=== PATIENT | female | born 1990 | race Two or more races ===

== ENCOUNTER 2023-10-05 16:06 | Emergency (ER) | payer OTHER, SELFPAY ==
[2023-10-05 16:16] VITALS: BP 130/80; PULSE 67; TEMP 36.9; O2SAT 98
--- NOTE | 2023-10-05 22:08 | ED_ITS ---
HPI HPI - General Adult General Chief complaint: Upper Respiratory Infection Stated complaint: URTI Time Seen by Provider: 10/05/23 16:11 Source: patient Mode of arrival: walk-in Limitations: no limitations History of Present Illness HPI narrative: Patient is a 33-year-old female who is presenting to the ER with chief complaint of sinus congestion for the past 3 days.Patient has no headache, patient has cough and is most concerned about costochondritis to the parasternal area.No sore throat. Minimal sinus pressure.Patient is having dry cough and a clear yellowish cough for the past few days. Patient daughter is at bedside. No chest pain, shortness of breath, abdominal pain, nausea or vomiting.Patient states she is having pain along the parasternal border after coughing only, it is concerned. No rash.No chest heaviness or tightness. No cardiac history.Patient is taking Mucinex D a few times [id number] with no relief All systems are negative except as noted/marked. All systems reviewed and otherwise negative. Nurses note and vital signs reviewed and patient is not hypoxic. General: The patient appears well and in no apparent distress. Patient is resting comfortably on cart. Patient is not toxic, lethargic, or listless Skin: Warm, dry, no pallor noted. There is no rash noted. No petechiae, purpura. Head: Normocephalic, atraumatic; Patient has no tenderness to palpation to bilateral frontal or maxillary sinus. Eye: Normal conjunctiva, no drainage, EOMI. PERRL Ears, Nose, Mouth, and Throat: oral mucosa is moist. Clear drainage noted to the posterior pharynx.Mild cobblestoning. No unilateral swelling. No posterior pharyngeal erythema, petechiae or exudate. Nares patent. Mouth without vesicles. Cardiovascular: Regular Rate and Rhythm, no murmur, gallop, rub; Reproducible mild tenderness to palpation to the parasternal border of the anterior chest wall.No other anterior, lateral, posterior chest wall pain.No crepitus. Respiratory: Patient is in no distress, no accessory muscle use, lungs are clear to auscultation, no wheezing, rales or rhonchi Back: non-tender, GI: no tenderness Musculoskeletal: Patient has full range of motion of all of the extremities, no motor, sensory, or focal neurological deficits Neurological: A&O x4, normal speech Psychiatric: Cooperative Related Data Home Medications ?Medication ?Instructions ?Recorded ?Confirmed cetirizine 10 mg capsule (All Day 10 mg PO DAILY 10/05/23 10/05/23 Allergy (cetirizine)) clonazepam 1 mg tablet 1 mg PO DAILY 10/05/23 10/05/23 sertraline 50 mg tablet (Zoloft) 50 mg PO DAILY 10/05/23 10/05/23 tiotropium bromide 2.5 2 inh inhalation DAILY 10/05/23 10/05/23 mcg/actuation mist for inhalation (Spiriva Respimat) Allergies Allergy/AdvReac Type Severity Reaction Status Date / Time bupropion [From Wellbutrin] Allergy Severe suicidal Verified 10/05/23 16:11 Opioid HPI Opioid Management Most Recent Opioid Data: No Data to Display Exam Constitutional Vital Signs, click to edit/add: Last Vital Signs Temp 98.5 F 10/05/23 16:16 Pulse 67 10/05/23 16:16 Resp 17 10/05/23 16:16 BP 130/80 10/05/23 16:16 Pulse Ox 98 10/05/23 16:16 O2 Del Method Room Air 10/05/23 16:16 Course Vital Signs Vital signs: Vital Signs Temperature 98.5 F 10/05/23 16:16 Pulse Rate 67 10/05/23 16:16 Respiratory Rate 17 10/05/23 16:16 Blood Pressure 130/80 10/05/23 16:16 Pulse Oximetry 98 10/05/23 16:16 Oxygen Delivery Method Room Air 10/05/23 16:16 Temperature 98.5 F 10/05/23 16:16 Pulse Rate 67 10/05/23 16:16 Respiratory Rate 17 10/05/23 16:16 Blood Pressure 130/80 10/05/23 16:16 Pulse Oximetry 98 10/05/23 16:16 Oxygen Delivery Method Room Air 10/05/23 16:16 Medical Decision Making MDM Narrative Medical decision making narrative: Patient has evidence of sinus congestion. No acute indication for steroids or antibiotics. Education was done at bedside. Patient is able to do multiple [id number] Therapies which she is not doing, she is only done Mucinex D x 1.Education on costochondritis was done at bedside and on discharge paperwork.Patient stated that 2 of her children were placed on steroids and they had symptoms like this in the past week or 2.Patient lungs are crystal clear, she has no acute indication for steroids at this time.Patient understands, no questions at discharge. Discharge Plan Discharge Stand Alone Forms: Portal Instructions Chief Complaint: Upper Respiratory Infection Clinical Impression: Upper respiratory infection, Bronchitis, Costochondritis Patient Disposition: Home, Self-Care Time of Disposition Decision: 17:50 Condition: Fair Prescriptions / Home Meds: No Action All Day Allergy (cetirizine) 10 mg capsule 10 mg PO DAILY clonazepam 1 mg tablet 1 mg PO DAILY Spiriva Respimat 2.5 mcg/actuation mist 2 inh inhalation DAILY sertraline [Zoloft] 50 mg tablet 50 mg PO DAILY Print Language: Frisian Instructions: Costochondritis (ED), Upper Respiratory Infection (ED), Acute Bronchitis (ED) Additional Instructions: Increase fluids at home, Gatorade, Powerade, or water. Alternate using DayQuil, NyQuil, and Flonase. Add Mucinex as well as needed. Alternate Tylenol and Motrin every 4 hours to help with fever control, body aches or joint pain. Use [id number] vitamin C, vitamin D3, and zinc to help fight infection and help with her immune system. Referrals: Ramon Ruiz DO [Primary Care Provider] - 1 week Discharge Date/Time: 10/05/23 17:57
== END 2023-10-05 17:57 | disposition home or self-care (01) ==
PROVIDERS: Emergency Provider Emergency Medicine; PCP Family Medicine
DX: J06.9 Acute upper respiratory infection, unspecified (principal); J40 Bronchitis, not specified as acute or chronic; M94.0 Chondrocostal junction syndrome [Tietze]
CPT/HCPCS: 99281

== ENCOUNTER 2025-02-26 18:28 | Emergency (ER) | payer OTHER, SELFPAY ==
--- OUTSIDE RECORDS SUMMARY | 2024-05-05 04:18 | XMS_ITS | Continuity of Care Document ---
Author Organization [facility] Address [address] [place] [id number] Phone Care Team Providers Care Marine Technician Name Role Phone Sean FLOWERS Scout Unavailable Unavailable Allergies, Adverse Reactions, Alerts Substance Reaction Status Criticality No Known Allergies Active No Inform ation Medications Medication Instructions Dosage Effective Dates (start - stop) Status Comments Spiriva Respimat 1.25 mcg/actuation solution for inhalation inhale 2 puff by inhalation route every day 2.5 MCG - Active Zoloft 50 mg tablet take 1 tablet by ora l route every day 50 MG - Active Zyrtec 10 mg tablet take 1 tablet by ora l route every day 10 MG - Active Asmanex HFA 50 mcg/actuation aerosol inhaler - Active Klonopin 1 mg tablet take 1 tablet by or al route every day 1 MG - Active Procedures Procedure Date Prophylaxis Adult [facility] [place] Dis Apr Oral Hygiene Instruction OFFICE/OUTPATIENT VISIT, EST ROUTINE VENIPUNCTURE Prophylaxis Adult Moderate Risk [facility] [place] Dis Sep Oral Hygiene Instruction Intraoral-complete Series (bw) [facility] [place] Dis Sep Oral Hygiene Instruction Comp Oral Eval New/estab Patient 2023 Intraoral-periapical 1st Film Bitewig-single Film Feb-01-2024 Limited Oral Eval Oral Hygiene Instruction IMMUNIZATION ADMIN FLU VAC NO PRSV 4 ENOCH 3 YRS+ IMMUNIZATION ADMIN FLU VAC NO PRSV 4 ENOCH 3 YRS+ Prophylaxis Adult [facility] [place] Dis Feb Oral Hygiene Instruction IMMUNIZATION ADMIN FLU VAC NO PRSV 4 ENOCH 3 YRS+ [facility] [place] Dis Oct Oral Hygiene Instruction Resin Composite 2s; Posterior 9 Resin Composite 1s; Posterior 9 Treatment Completed Oral Hygiene Instruction Resin Composite 3s; Posterior 9 Resin Composite 2s; Posterior 9 Prophylaxis Adult Oral Hygiene Instruction Intraoral-complete Series (bw) 19 Comp Oral Eval New/estab Patient 2018 Oral Hygiene Instruction OFFICE/OUTPATIENT VISIT, EST DESTRUCT B9 LESION, - OFFICE/OUTPATIENT VISIT, EST OFFICE/OUTPATIENT VISIT, EST OFFICE/OUTPATIENT VISIT, EST HIV-1 ROUTINE VENIPUNCTURE OFFICE/OUTPATIENT VISIT, EST OFFICE/OUTPATIENT VISIT, EST SMEAR, WET MOUNT, SALINE/INK OFFICE/OUTPATIENT VISIT, EST OFFICE/OUTPATIENT VISIT, EST URINE TEST DESTRUCT B9 LESION, - Donation OFFICE/OUTPATIENT VISIT, EST [facility] SPECIMEN HANDLING (GC/CHLAMYDIA) Feb DESTRUCT B9 LESION, - OFFICE/OUTPATIENT VISIT, EST OFFICE/OUTPATIENT VISIT, EST OFFICE/OUTPATIENT VISIT, NEW DESTRUCT B9 LESION, - OFFICE/OUTPATIENT VISIT, EST DESTRUCT B9 LESION, - OFFICE/OUTPATIENT VISIT, EST REMOVE INTRAUTERINE DEVICE [facility] SPECIMEN HANDLING (GC/CHLAMYDIA) Jan PREV VISIT, EST, AGE 18-39 [facility] SPECIMEN HANDLING (GC/CHLAMYDIA) August OFFICE/OUTPATIENT VISIT, EST DESTRUCT B9 LESION, 05-13 HIV-1 OFFICE/OUTPATIENT VISIT, EST SMEAR, WET MOUNT, SALINE/INK No Charge BIOPSY OF CERVIX W/SCOPE No Charge OFFICE/OUTPATIENT VISIT, EST DESTRUCT B9 LESION, 05-13 SMEAR, WET MOUNT, SALINE/INK URINE TEST OFFICE/OUTPATIENT VISIT, EST PREV VISIT, EST, AGE 18-39 SPECIMEN HANDLING THIN PREP AND HPV OFFICE/OUTPATIENT VISIT, EST Levonorgestrel iu contracept INSERT INTRAUTERINE DEVICE URINE TEST CARE AFTER DELIVERY SPECIMEN HANDLING URINE TEST OFFICE/OUTPATIENT VISIT, EST ROUTINE VENIPUNCTURE SPECIMEN HANDLING RISK ASSISSMENT CARE COORDINATION OFFICE/OUTPATIENT VISIT, EST ROUTINE VENIPUNCTURE CARE COORDINATION BX/CURETT OF CERVIX W/SCOPE OFFICE/OUTPATIENT VISIT, EST CARE COORDINATION OFFICE/OUTPATIENT VISIT, EST CARE COORDINATION FLU VACCINE, 3 YRS & >, IM H1N1 OFFICE/OUTPATIENT VISIT, EST THIN PREP W/REFLEX ASCUS PLUS 9 SPECIMEN HANDLING CARE COORDINATION DESTRUCT PREMALG LES, 2-14 OFFICE/OUTPATIENT VISIT, NEW RISK ASSISSMENT COUNSELING AND EDUCATION CARE COORDINATION ROUTINE VENIPUNCTURE Panel W/O Hemoglobinopathy DRUG SCREEN URINALYSIS, COMP W/MICRO URINE CULTURE, ROUTINE PANEL (HIV-1) LEAD, ADULT OFFICE/OUTPATIENT VISIT, EST URINE TEST Advance Directives Directive Yes / No Effective Date File Name No Information Encounters Encounter Description Practice Location Reason(s) For Visit Diagnoses Date Provider Providers Copied on Encounter [facility], [address] [place] [address], [id number] , [place] tel:[phone] [facility] [place] (chief complaint) Body mass index [BMI] 33.0-33.9, adultEncounter for screening for dental disorders 5 Sean Butterfield. [address] [place] [address], [id number], [place]. tel:[phone] OFFICE/OUTPA TIENT VISIT, EST [facility], [address] [place] [address], [id number] , [place] tel:[phone] [facility] STD screen (chief complaint) - STD High risk heterosexual behavior- STD screen- HIVBody mass index [BMI] 31.0-31.9, adult 4 [facility] Josephine. [address] [place] [address], [id number], [place]. tel:[phone] [facility], [address] [place] [address], [id number] , [place] tel:[phone] [facility] [place] (chief complaint) Encounter for screening for dental disorders 4 Kanpapo Butterfield. [address] [place] [address], [id number], [place]. tel:[phone] [facility], [address] [place] [address], [id number] , [place] tel:[phone] [facility] [place] (chief complaint) Encounter for screening for dental disorders 4 Sean Butterfield. [address] [place], [place], [id number], [place]. tel:[phone] [facility], [address] [place], [place], [id number] , [place] tel: [phone] [facility] Encounter for screening for dental disorders 4 Sean Butterfield. [address] [place], [place], [id number], [place]. tel:[phone] [facility], [address] [place], [place], [id number] , [place] tel: [phone] [facility] No Information 2 Visci DO Jeremy. [address] [place], [place], [id number], [place]. tel:[phone] [facility], [address] [place], [place], [id number] , [place] tel: [phone] [facility] No Information 0 Visci DO Jeremy. [address] [place], [place], [id number], [place]. tel:[phone] [facility], [address] [place], [place], [id number] , [place] tel: [phone] [facility] Prophy (chief complaint) Encounter for screening for dental disorder 9 Romeo Gallo. [address] [place], [place], [id number], [place]. tel:[phone] [facility], [address] [place], [place], [id number] , [place] tel: [phone] [facility] No Information 9 Visci DO Jeremy. [address] [place], [place], [id number], [place]. tel:[phone] [facility], [address] [place], [place], [id number] , [place] tel: [phone] [facility] filling (chief complaint) Encounter for screening for dental disorder [facility]. [address] [place], [place], [id number], [place]. tel:[phone] [facility], [address] [place], [place], [id number] , [place] tel: [phone] [facility] filling (chief complaint) Encounter for screening for dental disorder 9 [facility]. [address] [place], [place], [id number], [place]. tel:[phone] [facility], [address] [place], [place], [id number] , [place] tel: [phone] [facility] Encounter for screening for dental disorder 9 [facility]. [address] [place], [place], [id number], [place]. tel:[phone] [facility], [address] [place], [place], [id number] , [place] tel: [phone] [facility] dental new (chief complaint) Encounter for screening for dental disorder 9 [facility]. [address] [place], [place], [id number], [place]. tel:[phone] OFFICE/OUTPA TIENT VISIT, [facility], [address] [place], [place], [id number] , [place] tel: [phone] [facility] Warts (chief complaint) Condyloma acuminatum 6 Blank Mauro. [address] [place], [place], [id number], [place]. tel:[phone] OFFICE/OUTPA TIENT VISIT, [facility], [address] [place], [place], [id number] , [place] tel: [phone] [facility] genital warts (chief complaint) Condyloma acuminatum 6 Blank Mauro. [address] [place], [place], [id number], [place]. tel:[phone] OFFICE/OUTPA TIENT VISIT, [facility], [address] [place], [place], [id number] , [place] tel: [phone] [facility] follow-up cryotherapy (chief complaint) Condyloma acuminatum 6 Cheryl Wade. [address] [place], [place], [id number], [place]. tel:[phone] OFFICE/OUTPA TIENT VISIT, [facility], [address] [place], [place], [id number] , [place] tel: [phone] [facility] Genital warts (chief complaint) Condyloma acuminatumOther problems related to lifestyleEncount er for screening for HIVEncntr screen for infections w sexl mode of transmiss 6 Cheryl Wade. [address] [place], [place], [id number], [place]. tel:[phone] OFFICE/OUTPA TIENT VISIT, [facility], [address] [place], [place], [id number] , [place] tel: [phone] [facility] yeast infection (chief complaint) Vaginitis 4 Visci DO Jeremy. [address] [place], [place], [id number], [place]. tel:[phone] OFFICE/OUTPA TIENT VISIT, [facility], [address] [place], [place], [id number] , [place] tel: [phone] [facility] control (chief complaint) Other specified contraceptive management 4 Visci DO Jeremy. [address] [place], [place], [id number], [place]. tel:[phone] [facility], [address] [place], [place], [id number] , [place] tel: [phone] [facility] STI female (chief complaint) Condyloma acuminatum 4 Cheryl Wade. [address] [place], [place], [id number], [place]. tel:[phone] [facility], [address] [place], [place], [id number] , [place] tel: [phone] [facility] NOT SEEN (chief complaint) No Information 3 David Stanton. [address] [place], [place], [id number], [place]. tel:[phone] OFFICE/OUTPA TIENT VISIT, [facility], [address] [place], [place], [id number] , [place] tel: [phone] [facility] STI female (chief complaint) Condyloma acuminatum 3 Cheryl Wade. [address] [place], [place], [id number], [place]. tel:[phone] OFFICE/OUTPA TIENT VISIT, [facility], [address] [place] [address], [id number] , [place] tel: [phone] [facility] repap (chief complaint) Papanicolaou smear of cervix with atypical squamous cells of undetermined significance (ASC-US) 3 Kane Ram. [address] [place], [place], [id number], [place]. tel:[phone] OFFICE/OUTPA TIENT VISIT, [facility], [address] [place], [place], [id number] , [place] tel: [phone] [facility] STI female (chief complaint) Condyloma acuminatum 3 Cheryl Wade. [address] [place], [place], [id number], [place]. tel:[phone] OFFICE/OUTPA TIENT VISIT, [facility], [address] [place] [address], [id number] , [place] tel: [phone] [facility] STI female (chief complaint) Condyloma acuminatum 3 Cheryl Wade. [address] [place], [place], [id number], [place]. tel:[phone] OFFICE/OUTPA TIENT VISIT, [facility], [address] [place], [place], [id number] , [place] tel: [phone] [facility] No Information 2 Kane Ram. [address] [place], [place], [id number], [place]. tel:[phone] PREV VISIT, [facility], AGE 18-39 [facility], [address] [place], [place], [id number] , [place] tel: [phone] [facility] No Information 0 2 Kane Ram. [address] [place], [place], [id number], [place]. tel:[phone] OFFICE/OUTPA TIENT VISIT, [facility], [address] [place], [place], [id number] , [place] tel: [phone] [facility] STI female (chief complaint) Condyloma acuminatumScreen ing examination for venereal disease Jun-0 2 Cheryl Wade. [address] [place], [place], [id number], [place]. tel:[phone] OFFICE/OUTPA TIENT VISIT, [facility], [address] [place], [place], [id number] , [place] tel: [phone] [facility] No Information 0 1 Lamp Leanna. [address] [place], [place], [id number], [place]. tel:[phone] [facility], [address] [place], [place], [address] , [place] tel: [phone] [facility] No Information 1 Kane Ram. [address] [place], [place], [id number], [place]. tel:[phone] [facility], [address] [place], [place], [address] , [place] tel: [phone] [facility] No Information 1 David Stanton. [address] [place], [place], [id number], [place]. tel:[phone] [facility], [address] [place], [place], [address] , [place] tel: [phone] [facility] No Information 1 Kane Ram. [address] [place], [place], [id number], [place]. tel:[phone] OFFICE/OUTPA TIENT VISIT, [facility], [address] [place], [place], [id number] , [place] tel: [phone] [facility] No Information 1 Kane Ram. [address] [place], [place], [address], [place]. tel:[phone] OFFICE/OUTPA TIENT VISIT, [facility], [address] [place], [place], [address] , [place] tel: [phone] [facility] No Information 1 Mawhirter GLOBAL COMPENSATION DIRECTOR Milena. [address] [place], [place], [id number]. tel:[phone] PREV VISIT, [facility], AGE 18-39 [facility], [address] [place], [place], [id number] , [place] tel: [phone] [facility] No Information 0 Mawhirter GLOBAL COMPENSATION DIRECTOR Milena. [address] [place], [place], [id number]. tel:[phone] OFFICE/OUTPA TIENT VISIT, [facility], [address] [place], [place], [address] , [place] tel: [phone] [facility] No Information 0 Mawhirter GLOBAL COMPENSATION DIRECTOR Milena. [address] [place], [place], [id number]. tel:[phone] [facility], [address] [place], [place], [address] , [place] tel:[phone] [facility] No Information 2-201 0 Gibson Grijalva. [address] [place], [place], [id number]. tel:[phone] [facility], [address] [place], [place], [address] , [place] tel: [phone] [facility] No Information 0-201 0 Kane Ram. [address] [place], [place], [id number], [place]. tel:[phone] OFFICE/OUTPA TIENT VISIT, [facility], [address] [place], [place], [address] , [place] tel: [phone] [facility] No Information 1-201 0 Holley TAY Milena. [address] [place], [place], [id number]. tel:[phone] OFFICE/OUTPA TIENT VISIT, [facility], [address] [place], [place], [address] , [place] tel: [phone] [facility] No Information 4-201 0 Holley TAY Milena. [address] [place], [place], [id number]. tel:[phone] [facility], [address] [place], [place], 3633[address] , [place] tel: [phone] [facility] No Information 0 4-200 9 Visci DO Jeermy. [address] [place], [place], [id number], [place]. tel:[phone] OFFICE/OUTPA TIENT VISIT, [facility], [address] [place], [place], [address] , [place] tel: [phone] [facility] No Information 0-200 9 Holley TAY Milena. [address] [place], [place], [id number]. tel:[phone] OFFICE/OUTPA TIENT VISIT, [facility], [address] [place], [place], [id number] , [place] tel: [phone] [facility] No Information 2200 9 Anastasiyaadan Abbott. [address] [place], [place], [id number]. tel:[phone] [facility], [address] [place], [place], [address] , [place] tel: [phone] [facility] No Information 2200 9 David Stanton. [address] [place], [place], [id number], [place]. tel:[phone] OFFICE/OUTPA TIENT VISIT, [facility], [address] [place], [place], [address] , [place] tel: [phone] [facility] No Information 5 9 [facility] Milena. [address] [place], [place], [address]. tel:[phone] OFFICE/OUTPA TIENT VISIT, [facility], [address] [place], [place], [id number] , [place] tel: [phone] [facility] No Information 9 David Stanton. [address] [place], [place], [id number], [place]. tel:[phone] OFFICE/OUTPA TIENT VISIT, [facility], [address] [place], [place], [address]357[address] , [place] tel: [phone] [facility] No Information [phone] No Information Family History Family Member Type Diagnosis Age At Onset Mother Problem (finding) Alive and well Father Problem (finding) [place] Sister Problem (finding) Alive and well Father Problem (finding) Alive and well Father Problem (finding) hypertension Sister Problem (finding) manic-depressive state Mother Problem Depression Brother Problem (finding) Alive and well Immunizations Vaccine Date Status Comments Flulaval/ Fluarix administered Source: Ne w Immunization Record Flulaval/ Fluarix administered Source: Ne w Immunization Record Influenza virus vaccine, quadrivalent, split virus, preservative free administered Source: New Immuniza tion Record Payers Payer name Insurance type Covered democrat ID Authoriza tion(s) Timothy Patterson [facility] [id number] Medicaid Wrap - [facility] [id number] Medicaid W[place] - [facility] [id number] Medicaid Wrap - [facility] [id number] Medicaid Wrap - [facility] [id number] Social History Type Description Quantity Date Captured Comments Alcohol Use Details No Caffeine Use Details Tobacco Use Status Never smoked tobacco 2024 Smoking Status Never smoker Sex Female Sexual Orientation Straight or heterosexual Gender Identity Anbezs-vn-Lvhz (FTM) /Transgender Male/Trans Man Vital Signs Date / Time: Height Weight BMI Pulse Rate Blood Pressure Temperature Respiratory Rate Body Surface Area Head Circumference Head Circ. Percentile Wt./Biju. Percentile BMI percentile Pulse Ox Inhaled Ox 8:32 AM 60.00 in 78.471 kg (173.00 lbs) 33.7 9 kg/m eter (2) 75 /min 125/77 mm[Hg] 98.30 F Chief Complaint And Reason For Visit From encounter dated '05/05/2024 08:18'. PA (chief complaint). Description: PA Reason For Referral Reason For Referral No Information Plan Of Treatment Date Type Action Status Goal Tdap. Due on due Goal Hep A. Due on du e Goal RLP. Due on due Goal PRAPARE ASSESSMENT. Due on due Goal HPV. Due on due Goal Depression screening. Due on due Goal Tdap Vaccine. Due on 2024 due Goal Influenza vaccine. Due on due Goal Hepatitis C screening. Due o n due Goal Unhealthy drug use screening . Due on due Goal Dietary management education , guidance, and counseling completed Goal Unhealthy drug use screening . Due on due Goal RLP. Due on due Goal PRAPARE ASSESSMENT. Due on due Goal HPV. Due on due Goal Tdap. Due on due Goal Hepatitis C screening. Due o n due Goal Tdap Vaccine. Due on 2023 due Goal Depression screening. Due on due Goal Influenza vaccine. Due on due Goal Dietary management education , guidance, and counseling completed Goal HPV. Due on due Goal Tdap. Due on due Goal RLP. Due on due Goal Unhealthy drug use screening . Due on due Goal PRAPARE ASSESSMENT. Due on due Goal Influenza vaccine. Due on due Goal Hepatitis C screening. Due o n due Goal Depression screening. Due on due Goal Tdap Vaccine. Due on 2023 due Goal Hep A. Due on du e Goal Tdap. Due on due Goal RLP. Due on due Goal Tdap Vaccine. Due on 2023 due Goal Depression screening. Due on due Goal PRAPARE ASSESSMENT. Due on J due Goal Hepatitis C screening. Due o n due Goal Unhealthy drug use screening . Due on due Goal HPV. Due on due Goal Influenza vaccine. Due on due Goal RLP. Due on due Goal Tdap Vaccine. Due on 2023 due Goal HPV. Due on due Goal Tdap. Due on due Goal Influenza vaccine. Due on due Goal Unhealthy drug use screening . Due on due Goal Hepatitis C screening. Due o n due Goal PRAPARE ASSESSMENT. Due on due Goal Depression screening. Due on due Goal PRAPARE ASSESSMENT. Due on N due Goal Influenza vaccine. Due on No due Goal Depression screening. Due on due Goal Tdap. Due on due Goal RLP. Due on due Goal RLP. Due on due Goal Depression screening. Due on due Goal Influenza vaccine. Due on No due Goal Tdap. Due on due Goal RLP. Due on due Goal Influenza vaccine. Due on due Goal Tdap. Due on due Goal Depression screening. Due on due Goal Depression screening. Due on due Goal Tdap. Due on due Goal Influenza vaccine. Due on due Goal RLP. Due on due Goal RLP. Due on due Goal Influenza vaccine. Due on due Goal Tdap. Due on due Goal Depression screening. Due on due Goal Depression screening. Due on due Goal Tdap. Due on due Goal Influenza vaccine. Due on due Goal RLP. Due on due Goal RLP. Due on due Goal Influenza vaccine. Due on due Goal Tdap. Due on due Goal Depression screening. Due on due Goal RLP. Due on due Goal Influenza vaccine. Due on due Goal Tdap. Due on due Goal Depression screening. Due on due Goal Td vaccine. Due on 16 due Goal Tdap. Due on due Goal H&P. Due on due Goal PAP. Due on due Goal H&P. Due on due Goal Tdap. Due on due Goal Td vaccine. Due on 16 due Goal Tdap. Due on due Goal Td vaccine. Due on 16 due Goal H&P. Due on due Goal Tdap. Due on due Goal Td vaccine. Due on 16 due Goal H&P. Due on due History Of Present Illness Encounter Date Complaint History Of Prese nt Illness [facility]KEW STD screen Patient is here for STD screen. She desires HIV, RPR and Hep C. She currently goes to [facility] for her annual exam and plans to continue. She completed her last annual exam with Dr. Montaño Nov 2022. AZAR ASKEW DN established dent al care Prophy Prophy filling filling continue with treatment filling continue with tr eatment dental new dental new, esta b dental care Warts Pt here for wart treatment. Reports 1 wart remains. Denies all other complaints. Declines condoms. [place] genital warts Here for recurre nce of genital wart. Shruti Rosenbaum R.N. follow-up cryotherapy Here for f ollow-up to cryotherapy done 2 weeks ago. States warts are gone. Shruti Rosenbaum R.N. Genital warts Seen recently by [employer]. Has Hx of warts. Not positive if more now or just scar . Shruti Rosenbaum R.N. Functional Status Date Functional Assessmen t No Information Instructions Date Instruction Additional Infor esa Dietary management e ducation, guidance, and counseling Related to Body mass index [BMI] 33.0-33.9, adult Giving encouragement to exercise Related to Body mass index [BMI] 33.0-33.9, adult HIV, RPR and Hep C d rawn and sent to lab. Patient to call in 1 week for result Related to - HIV cervical cultures ob tained and sent to lab. Patient to call in 1 week for result. Stress importance of using condoms to prevent STDs in the future. Will call [facility] to request pap report form 2022. Related to - STD High risk heterosexual behavior Giving encouragement to exercise Related to Body mass index [BMI] 31.0-31.9, adult Dietary management e ducation, guidance, and counseling Related to Body mass index [BMI] 31.0-31.9, adult Assessments Type Assessment Date assessment Body mass index [BMI] 33.0-33.9, adult Patient Care Teams Name Effective Dates (start - stop) Status Members No Information
--- OUTSIDE RECORDS SUMMARY | 2025-02-18 15:45 | XMS_ITS | Encounter Summary ---
Author Organization [facility] Address [address] [place] [address] Care Team Providers Care Backend Python Developer Name Role Phone Buckjohan Ramon Alpa PADILLA Primary Care Provider [phone] Reason for Visit * ReasonCommentsProcedurePatient present for Colpo, patient denies any issues or complaints at this time. LMP: Ablation Encounter Details DateTypeDepartmentCare Team (Latest Contact Info)Ojuqqctugxs39/22/2025 3:45 PM EDTProcedure Visit CHANDNI AMBRIZ [address] [facility] [address] [place] [phone] Tariq Hill MD [address] [facility] [address] [place] [address] History of abnormal cervical Pap smear; LGSIL of cervix of undetermined significance Social History Tobacco UseTypesPacks/DayYears UsedDateSmoking Tobacco: NeverSmokeless Tobacco: Never Tobacco Cessation:Counseling Given: Not Answered Alcohol UseStandard Drinks/WeekCommentsYes0 (1 standard drink = 0.6 oz pure alcohol)Caffeine intake: 1-2 cups per day ; coffeeAUDIT-CAnswerDate RecordedQ1: How often do you have a drink containing alcohol?Monthly or less12/11/2023Q2: How many drinks containing alcohol do you have on a typical day when you are drinking?1 or Q3: How often do you have six or more drinks on one occasion?Less than impkifc3612/11/2023HQ-2AnswerDate RecordedPatient Health Questionnaire-2 Tlopj491/11/2024CommentsNoSex and Gender Information ValueDate RecordedSex Assigned at BirthNot on fileLegal FmkKxwzkn11/15/2023 6:36 PM EDTGender IdentityNot on fileSexual OrientationNot on filedocumented as of this encounter Last Filed Vital Signs Vital SignReadingTime TakenCommentsBlood Oijgekkn127/7002/18/2025 4:10 PM EDT Pulse--Temperature--Respiratory Rate--Oxygen Saturation--Inhaled Oxygen Concentration--Kmnfxr87.2 kg (168 lb)02/18/2025 4:10 PM EDTHeight--Body Mass Index32.8109 3:48 PM EDTdocumented in this encounter Plan of Treatment DateTypeDepartmentCare Team (Latest Contact Info)Snjjavngnul68/23/2026 1:00 PM EDTOffice Visit CHANDNI AMBRIZ [address] [facility] [address] [place] [address] Tariq Hill MD [address] [facility] [address] [place] [address] documented as of this encounter Procedures Procedure NamePriorityDate/TimeAssociated DiagnosisCommentsPATHOLOGY REPORT Zllftcz3102/18/2025 12:00 AM EDT History of abnormal cervical Pap smear LGSIL of cervix of undetermined significance documented in this encounter Results * Pathology Report (02/18/2025 12:00 AM EDT)ComponentValueRef RangeTest Method Analysis TimePerformed AtPathologist SignatureMaterial Submitted:Comment [facility]PComment: Material submitted: ?. PART A: endocervix - ECC PART B: cervix - CERVICAL BIOPSY Clinician Provided [id number]: Clinician provided ICD-10: R87.612 Z87.42 Diagnosis:CommentLABCORPComment: Diagnosis: A. ENDOCERVIX, CURETTAGE: - PREDOMINANTLY MUCUS WITH SCANT GLANDULAR ENDOCERVICAL EPITHELIUM. - NEGATIVE FOR DYSPLASIA. B. 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 SMI ??02/20/2025 ??1547 Local Electronically Signed:CommentLABCORPComment: Electronically signed: ? . Bulmaro Orozco MD, Pathologist Gross Description:CommentLABCORPComment: Gross description: ? . A. RECEIVED IN FORMALIN LABELED WITH THE PATIENT NAME AND ECC AND CONSISTS OF A 1.5 X 1.0 X 0.1 CM AGGREGATE OF VELASQUEZ WHITE TISSUE FRAGMENTS ADMIXED WITH MUCUS. THE SPECIMEN MAY NOT SURVIVE PROCESSING. SUBMITTED IN TOTO IN A1. B. RECEIVED IN FORMALIN LABELED WITH THE PATIENT NAME AND CERVIX AND CONSISTS OF A VELASQUEZ TISSUE MEASURING 0.4 CM IN GREATEST DIMENSION. SUBMITTED IN TOTO IN B1. PAV/BXS ??02/19/2025 ??1149 Local Pathologist Provided [id number]: Pathologist provided ICD-10: N87.0 CPTCommentLABCORPComment: CPT ?. 135982, 199845 Specimen (Source)Anatomical Location / LateralityCollection Method / Volume Collection TimeReceived IrvbQnlugn11/22/625633 Narrative [facility] - 02/20/2025 4:08 PM EDT Performed at: 01 - [facility] [address] [place], [place] ??[id number] Industrial Locomotive Operator: Nicholas Riley MD, Phone: ??[phone] Performed at: ??02 - [facility] [address] [place] [address] ??[id number] Industrial Locomotive Operator: Bulmaro Orozco MD, Phone: ??[phone] Performed at: ??03 - [facility] [address] [place] [address] ??[id number] Industrial Locomotive Operator: Nicholas Riley MD, Phone: ??[phone] Specimen Comment: No. of containers..02 Tissue Authorizing ProviderResult TypeResult StatusTariq Hill MDFLINT HILLS COMM[facility] PATHOLOGY ORDERABLESFinal ResultPerforming OrganizationAddressCity/State/ZIP CodePhone Number [facility] documented in this encounter Visit Diagnoses Diagnosis History of abnormal cervical Pap smear LGSIL of cervix of undetermined significance documented in this encounter Care Teams Team MemberRelationshipSpecialtyStart DateEnd Date Ramon Ruiz DO PCP - General10/11/22documented as of this encounter
[2025-02-26 18:32] VITALS: BP 128/86; PULSE 74; TEMP 37; O2SAT 97; BMI 33.2
--- NOTE | 2025-02-26 18:42 | ED.GENADUL1 ---
HPI HPI - General Adult General Chief complaint: Headache Stated complaint: PRESSURE ON FACE AND EAR ACHE Time Seen by Provider: 02/26/25 18:36 Source: patient Mode of arrival: walk-in History of Present Illness HPI narrative: 34 year old female presents to the ED for left ear pain. It radiates to her jaw. Onset was within the past 3 days. It became worse today. Reports hx recurrent otitis media. Denies fever, chills, injury, drainage, sore throat, tooth pain. Reports rhinorrhea. Denies chance of . Her father is driving her home today. Related Data Home Medications ?Medication ?Instructions ?Recorded ?Confirmed cetirizine 10 mg capsule (All Day 10 mg PO DAILY 10/05/23 02/26/25 Allergy (cetirizine)) clonazepam 1 mg tablet 1 mg PO DAILY 10/05/23 02/26/25 sertraline 50 mg tablet (Zoloft) 50 mg PO DAILY 10/05/23 02/26/25 tiotropium bromide 2.5 2 inh inhalation DAILY 10/05/23 02/26/25 mcg/actuation mist for inhalation (Spiriva Respimat) mometasone 220 mcg/actuation(60 2 inh inhalation DAILY 02/26/25 02/26/25 doses) breath activated powder inhaler (Asmanex Twisthaler) Previous Rx's ?Medication ?Instructions ?Recorded cefdinir 300 mg capsule 300 mg PO BID 10 days #20 caps 02/26/25 Allergies Allergy/AdvReac Type Severity Reaction Status Date / Time bupropion (From Wellbutrin) Allergy Severe suicidal Verified 10/05/23 16:11 Review of Systems ROS Constitutional Denies: fever or chills Ears, nose, mouth, and throat Reports: ear pain and nasal discharge; Denies: throat pain, neck pain, ear discharge or nasal congestion Cardiovascular Denies: chest pain Respiratory Denies: shortness of breath or cough Integumentary/Breast Denies: rash Neurological Denies: headache or dizziness PFSH PFSH Social History Little interest or pleasure in doing things: not at all Feeling down, depressed, or hopeless: not at all Exam Constitutional Vital Signs, click to edit/add: Last Vital Signs Temp 98.6 F 02/26/25 18:32 Pulse 74 02/26/25 18:32 Resp 16 02/26/25 18:32 BP 128/86 02/26/25 18:32 Pulse Ox 97 02/26/25 18:32 O2 Del Method Room Air 02/26/25 18:32 Common normals: no apparent distress and oriented x3 General appearance: cooperative HENMT Common normals: external ears normal, EACs normal, moist oral mucous membranes and oropharynx normal Tympanic membrane: TM normal on the right and TM abnormal TM laterality: left erythematous Mouth: oral and palatal mucosa normal, lip normal and tongue normal Teeth and gingiva: other (No dental abscess noted.) Throat: posterior oropharynx normal Eye Common normals: conjunctivae normal and no scleral icterus Neck & C-Spine Common normals: supple Chest Chest: symmetrical chest wall rise Respiratory Common normals: normal respiratory effort Effort & inspection: able to speak in complete sentences and symmetric chest movement Cardio Common normals: regular rate Neuro Common normals: oriented x3 and moves all extremities Sensorium/orientation: awake and alert Speech: speech normal Course Vital Signs Vital signs: Vital Signs Temperature 98.6 F 02/26/25 18:32 Pulse Rate 74 02/26/25 18:32 Respiratory Rate 16 02/26/25 18:32 Blood Pressure 128/86 02/26/25 18:32 Pulse Oximetry 97 02/26/25 18:32 Oxygen Delivery Method Room Air 02/26/25 18:32 Temperature 98.6 F 02/26/25 18:32 Pulse Rate 74 02/26/25 18:32 Respiratory Rate 16 02/26/25 18:32 Blood Pressure 128/86 02/26/25 18:32 Pulse Oximetry 97 02/26/25 18:32 Oxygen Delivery Method Room Air 02/26/25 18:32 Medical Decision Making MDM Narrative Medical decision making narrative: Left TM was erythematous. She reported hx recurrent otitis media infections. She was medicated with omnicef and Percocet here. A ride was present. A prescription was provided for Omnicef. Follow up with pcp and/or ENT for a recheck, further evaluation and treatment. Discharge Plan Discharge Chief Complaint: Headache Clinical Impression: Otitis media Patient Disposition: Home, Self-Care Time of Disposition Decision: 18:41 Condition: Good Mode of Transportation: Private Vehicle Prescriptions / Home Meds: New cefdinir 300 mg capsule 300 mg PO BID 10 Days Qty: 20 0RF No Action All Day Allergy (cetirizine) 10 mg capsule 10 mg PO DAILY clonazepam 1 mg tablet 1 mg PO DAILY Spiriva Respimat 2.5 mcg/actuation mist 2 inh inhalation DAILY sertraline [Zoloft] 50 mg tablet 50 mg PO DAILY Asmanex Twisthaler 220 mcg/ actuation (60) aerosol powdr breath activated 2 inh INHALATION DAILY Print Language: Pashto Instructions: Ear Infection (ED) Additional Instructions: Return to the ED if your condition worsens. Referrals: Ramon Ruiz DO [Primary Care Provider] - 1 week
--- OUTSIDE RECORDS SUMMARY | 2025-02-26 18:48 | XMS_ITS | CCD ---
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 Name Role Phone MEMO ARRIAZA Unavailable Unavailable TARIQ ANDREW Unavailable Unavailable CRYSTAL, DAMIAN R Unavailable Unavailable CRYSTAL, DAMIAN R Unavailable Unavailable CRYSTAL, DAMIAN R Unavailable Unavailable CRYSTAL, DAMIAN R Unavailable Unavailable CRYSTAL, DAMIAN R Unavailable Unavailable CRYSTAL, DAMIAN R Unavailable Unavailable CRYSTAL, DAMIAN R Unavailable Unavailable Nate Mario Unavailable Ramon Ruiz Unavailable DO Ramon Ruiz Primary Care Provider DO Ramon Ruiz Attending Provider Nicole Womack Unavailable DO Ramon Ruiz Primary Care Provider [phone] DO Ramon Ruiz Attending Provider [phone] DO Jeremy Hernandez Attending Provider DO Ramon Ruiz Primary Care Provider DO Ramon Ruiz Attending Provider MD Tariq Andrew Attending Provider Ramon Ruiz MD Primary Care Provider [phone] Ramon Ruiz DO Primary Care Provider Ramon Ruiz DO Attending Provider Tariq Andrew MD Attending Provider Ramon Ruiz Primary Care Unavailable Tariq Andrew Admitting Unavailable Tariq Andrew Attending Unavailable Ramon Ruiz Attending Unavailable Ramon Ruiz Admitting Unavailable Ramon Ruiz Primary Care Unavailable Kuns, Ramon Admitting Unavailable Kuns, Ramon Primary Care Unavailable Kuns, Ramon Attending Unavailable Tariq Andrew Admitting Unavailable Tariq Andrew Attending Unavailable Kuns, Ramon Primary Care Unavailable Kuns, Ramon Admitting Unavailable Kuns, Ramon Primary Care Unavailable Sara, Ramon Attending Unavailable Buckjohan DO Ramon Primary Care Provider Tariq Andrew MD Attending Provider [phone] Ramon Ruiz DO Primary Care Provider [phone] Sara DO, Ramon Primary Care Provider Jocy Rao APRN Attending Provider [phone] Ramon Ruiz DO Attending Provider [phone] Tess Arguello APRN Attending Provider Suad Sorensen APRN Attending Provider [phone] Ramon Ruiz DO Primary Care Provider Ramon Ruiz DO Attending Provider Nate Mario MD Attending Provider Ramon Ruiz DO Primary Care Provider [phone] Jocy Rao APRN Attending Provider REENA BROWNE Attending Unavailable DREW ORTIZ Attending Unavailable TARIQ ANDREW Attending Unavailable TARIQ ANDREW Attending Unavailable TARIQ ANDREW Attending Unavailable TARIQ ANDREW Attending Unavailable Allergies Allergy ClassificationReported Allergen(s)Allergy TypeDate of OnsetReaction(s) Facility (20 sources)buPROPionDrug Allergysuicidal ideationTurkey [facility]eva Other (20 sources)cats/dogs/pollenPropensity to adverse reactionsFranciscan Health Crown PointCortona3D Other (20 sources)buPROPion; Translations: [bupropion]Drug Mpximpu02-64-6076zdxn suicidal, felt suicidal, suicidal ideationTr[facility] (19 sources)PollenDrug tshprat31-71-5723GwnofrrUgajg Ve[employer] Other (20 sources)Cat danderDrug lhoxbej51-77-8937Fkuxvna, Unknown ReactionTrumbull Memorial Hospital (20 sources)Dog danderDrug qdieuam02-85-5742Xpyuxlv, Unknown ReactionTrumbull Memorial Hospital (16 sources)Pollen; Translations: [pollen extracts]Allergy to substance 31-47-2112Nuvfieo ReactionTrumbull Memorial Hospital (1 source)cat danderDrug allergy (disorder)37-11-1691KadbiydpgTrumbull Memorial Hospital Repository (1 source)dog danderDrug allergy (disorder)67-49-0701ViudfhvfzTrumbull Memorial Hospital Repository Medications Current Medications MedicationDrug Class(es)DatesSig (Normalized)Sig (Original)acetaminophen 325 mg / butalbital 50 mg / caffeine 40 mg oral tablet (20 sources)Barbiturate, Central Nervous System Stimulant, MethylxanthineStart: 50-49-0915anhl 1 tablet by mouth three times daily as needed for pain ulzshtplix-kqysaatidetbc-usdgyprk 50-325-40 MG tablet TAKE 1 TABLET BY MOUTH 3 TIMES A DAY NEEDED FOR PAIN 06/30/2024 ActiveStart: 06-24-2024 End: 25-26-9132xnno 1 capsule by mouth three times daily as needed for pain Gmtsivwxid-Ltketvnncbycq-Fzza 50-325-40 mg capsule Discontinued 1 CAP PO Three times daily as needed for pain 60 June 24, 2024 1:00am August 14, 2024 1:22pmStart: 06-16-2024 End: 78-80-5767yndy 1 capsule by mouth three times daily as needed for pain Kmtgepvihl-Hzfwgonbkfjat-Nvug (Fioricet) 50-300-40 mg capsule Discontinued 1 CAP PO Three times daily as needed for pain 60 June 16, 2024 1:00am June 24, 2024 5:03xokui584298 200 actuat albuterol 0.09 mg/actuat metered dose inhaler (20 sources)beta2-Adrenergic AgonistStart: 53-48-5022outg 1 puff(s) by inhalation four times daily as needed for wheezingAlbuterol Sulfate 90 mcg/actuation HFA aerosol inhaler Active 2 PUFF INHALATION Four times daily as needed for Shortness Of Breath Or Wheezing November 02, 2020 12:00am Complies with drug therapyStart: 50-18-1333vtor 2 puff(s) by inhalation in the morning, then take 2 puff(s) by inhalation in the evening, thentake 2 puff(s) by inhalation at bedtimeProventil HFA 108 (90 Base) MCG/ACT inhaler Inhale 2 puffs in the morning and 2 puffs in the evening and 2 puffs before bedtime. 06/05/2020 Activetake 1 puff(s) by inhalation every four hours as neededAlbuterol Sulfate HFA 108 (90 Base) MCG/ACT 1 puff as needed Inhalation every 4 hrs PRN Activetake 1 puff(s) by inhalation every four hours as neededAlbuterol Sulfate HFA 108 (90 Base) MCG/ACT 1 puff as needed Inhalation every 4 hrs PRN Activetake 1 puff(s) by inhalation every four hours as neededAlbuterol Sulfate HFA 108 (90 Base) MCG/ACT 1 puff as needed Inhalation every 4 hrs PRN ActiveAsmanex (120 Metered Doses) 220 MCG/INH (11 sources)Start: 21-25-8907pdcf 1 puff(s) by inhalation once daily in the eveningAsmanex (120 Metered Doses) 220 MCG/INH 1 puff in the evening Inhalation Once a day Jul, Activeibuprofen 800 mg oral tablet (20 sources)Nonsteroidal Anti-inflammatory DrugStart: 54-09-8754tygf 1 tablet by mouth three to four times daily as needed for painIbuprofen 800 mg tablet Active 800 MG PO 3 to 4 times per day as needed for pain February 15, 2024 12:00am Complies with drug therapyStart: 09-12-2022 End: 91-49-3711khin 4 tablets by mouth every twenty-four hours for painIbuprofen 600 mg tablet Discontinued 600 MG PO Every 6 hours as needed for pain September 12, 2022 12:00am June 18, 2023 5:12pm do not exceed 4 doses in a 24 hour periodStart: 04-17-2021 End: 88-96-5048jshs 1 tablet by mouth every six hours as needed for pain Ibuprofen 600 mg tablet Discontinued 600 MG PO Q6H as needed for pain April 17, 2021 1:00amMay 2022 3:21pmStart: 03-04-2017 End: 96-63-8459kgpn 1 tablet by mouth every six hours as needed for pain Ibuprofen 600 mg tablet Discontinued 600 MG PO Q6H as needed for pain March 04, 2017 12:00amJanuary 2017 10:35amIncruse Ellipta 62.5 MCG/INH (1 source)Start: 04-55-7308awnb 1 puff(s) by inhalation once dailyIncruse Ellipta 62.5 MCG/INH 1 puff Inhalation Once a day for 30 days Sep, Activelevonorgestrel 0.271096 mg/hr intrauterine system (15 sources)Progestin, Progestin-containing Intrauterine DeviceKyleena 19.5 MG as directed Intrauterine Activemagnesium oxide 250 mg oral tablet (5 sources)take 1 tablet by mouth once daily as neededMagnesium Oxide 250 MG 1 tablet as needed Orally Once a day Activemeclizine hydrochloride 25 mg oral tablet (20 sources)AntiemeticStart: 54-59-0837ggst 1 tablet by mouth three times daily as needed for dizzinessMeclizine 25 mg tablet Active 25 MG PO Three times daily as needed for dizziness May 07, 2024 1:00am Complies with drug therapy Start: 06-18-2023 End: 07-48-3097tfhz 1 tablet by mouth every six hours as neededMeclizine 25 mg tablet Discontinued 25 MG PO Every 6 hours June 18, 2023 1:00am January 8:40am FreeTextSi tablet as needed Orally every 6 hrs; Note: Source Status: Taking; Refills: 0; Provider: Sara Navarro PStart: 71-48-6904elwe 1 tablet by mouth every six hoursMeclizine HCl 25 MG 1 tablet as needed Orally every 6 hrs Feb, Mugwiz545 actuat mometasone furoate 0.22 mg/actuat dry powder inhaler (20 sources)CorticosteroidStart: 01-08-3901ivgd 2 puff(s) by mouth once daily in the eveningAsmanex, 120 Metered Doses, 220 MCG/ACT aerosol powder INHALE 2 PUFFS BY MOUTH EVERY EVENING 11/22/2022 ActiveStart: 08-29-2022 End: 52-64-0747Exoikodaoe (Asmanex Twisthaler) 220 mcg/ actuation (120) aerosol powdr breath activated Active 2 INH INHALATION Daily at bedtime 05 29November 14, 2024 11:02am Complies with drug therapyStart: 67-60-0584ackf 1 puff(s) by inhalation once daily in the eveningAsmanex (120 Metered Doses) 220 MCG/INH 1 puff in the evening Inhalation Once a day Jul, Activetake 2 puff(s) by inhalation once daily in the eveningAsmanex (120 Metered Doses) 220 MCG/ACT 2 puff in the evening Inhalation Once a day ActiveMometasone (Asmanex Twisthaler) 220 mcg/ actuation (120) aerosol powdr breath activated (13 sources)Start: 24-32-0629Tauiumjjwt (Asmanex Twisthaler) 220 mcg/ actuation (120) aerosol powdr breath activated Active 2 INH INHALATION Daily at bedtime August 28, 2022 11:00pmStart: 31-42-8609Dtxamlqksk (Asmanex Twisthaler) 220 mcg/ actuation (120) aerosol powdr breath activated Active 2 INH INHALATION Daily at bedtime August 29, 2022 12:00amMultiple Vitamin (Multi Vitamin) tablet (16 sources)Multiple Vitamin (Multi Vitamin) tablet 1 (one) time each day at the same time. ActivePrenatal Vitamins 28-0.8 MG (7 sources)take 1 tablet by mouth once dailyPrenatal Vitamins 28-0.8 MG 1 tablet Orally Once a day ActiveTiotropium Brigantine (20 sources)AnticholinergicStart: 21-77-6326zlnl 1 puff(s) by inhalation once dailyTiotropium Brigantine (Spiriva Respimat) 2.5 mcg/actuation mist Active 2 PUFF INHALATION Daily 08 27December 04, 2024 11:08am Complies with drug therapyStart: 02-10-5057vpvh 2 puff(s) by inhalation in the morningSpiriva Respimat 2.5 MCG/ACT inhaler Inhale 2 puffs in the morning. 09/28/2022 ActiveStart: 08-29-2022 End: 93-49-5651zpcl 1 puff(s) by inhalation once dailyTiotropium Brigantine (Spiriva Respimat) 2.5 mcg/actuation mist Discontinued 2 PUFF INHALATION Daily December 04, 2024 11:08am December 04, 2024 11:09amStart: 49-39-0399hxxa 2 puff(s) by inhalation once dailySpiriva Respimat 2.5 MCG/ACT 2 puffs Inhalation Once a day for 30 days Feb, ActiveStart: 79-89-9430ungm 2 puff(s) by inhalation once dailySpiriva Respimat 2.5 MCG/ACT 2 puffs Inhalation Once a day for 30 days Feb, Active7 actuat umeclidinium 0.0625 mg/actuat dry powder inhaler (6 sources)AnticholinergicStart: 13-13-7189inpj 1 puff(s) by inhalation once dailyIncruse Ellipta 62.5 MCG/INH 1 puff Inhalation Once a day for 30 days Sep, Active Completed/Discontinued Medications MedicationDrug Class(es)DatesSig (Normalized)Sig (Original)acetaminophen 325 mg / HYDROcodone bitartrate 5 mg oral tablet (20 sources)Opioid AgonistStart: 09-12-2022 End: 84-54-0872qico 1 tablet by mouth every six hours as needed for pain Hydrocodone-Acetaminophen 5-325 mg tablet Discontinued 1 TAB PO Q6H as needed for pain 04 01September 12, 2022 June 18, 2023 5:12pmStart: 04-17-2021 End: 67-38-9278bkov 1 tablet by mouth every six hours as needed for pain Hydrocodone-Acetaminophen 5-325 mg tablet Discontinued 1 TAB PO Q6H as needed for pain 26 11April 17, 2021 August 29, 2022 3:21pmamoxicillin 500 mg oral capsule (15 sources)Penicillin-class AntibacterialStart: 06-30-2023 End: 81-11-9444asaz 1 capsule by mouth three times dailyAmoxicillin 500 mg capsule Discontinued 500 MG PO Three times daily 30 June 30, 2023 1:00am July 23, 2023 10:24amamoxicillin 875 mg / clavulanate 125 mg oral tablet (12 sources)Penicillin-class AntibacterialStart: 10-05-2024 End: 42-46-3428imep 1 tablet by mouth every twelve hoursAmoxicillin-Pot Clavulanate 875-125 mg tablet Discontinued 1 TAB PO Every 12 hours October 05, 2024 12:00am October 23, 2024 2:19pmStart: 93-48-2378wbiz 1 tablet by mouth every twelve hoursAmoxicillin-Pot Clavulanate 875-125 MG 1 tablet Orally every 12 hrs May, Activeazithromycin 250 mg oral tablet (20 sources)Macrolide AntimicrobialStart: 08-24-2023 End: 39-11-4703Tjtkjcbhcbwf (Zithromax) 250 mg tablet Discontinued 0 PO .COMPLEX 6 October 09, 2023 12:10pm January 01, 2024 3:14pm For 250 mg dose pack: take 500 mg today (day 1), then 250 mg for 4 days (days 2-5) POStart: 04-04-2023 Zithromax Z-Marcel 250 MG as directed Orally as directed 1 pack Mar, Active Start: 52-84-1950Prcbuuywc Z-Marcel 250 MG as directed Orally Dec, Active Start: 12-00-6854Qfwkoeplp Z-Marcel 250 MG as directed Orally Jul, Active Start: 30-35-3120Eoooqkldf Z-Marcel 250 MG as directed Orally Feb, Dwbmzl81 hr buPROPion hydrochloride 150 mg extended release oral tablet (17 sources)AminoketoneStart: 05-20-2017 End: 99-37-6543vulr 1 tablet by mouth once dailyBupropion Hcl (Wellbutrin Sr) 150 mg tablet extended release 12 hr Discontinued 150 MG PO Daily May 20, 2017 1:00am June 10, 2017 8:50amcefdinir 300 mg oral capsule (16 sources)Cephalosporin AntibacterialStart: 07-23-2023 End: 28-41-7238uptb 1 capsule by mouth every twelve hoursCefdinir 300 mg capsule Discontinued 300 MG PO Every 12 hours 16 02July 23, 2023 12:00am January 01, 2024 3:14pmStart: 53-53-1860ccnx 1 capsule by mouth every twelve hours Cefdinir 300 MG 1 capsule Orally BID for 10 days Dec, Activecephalexin 500 mg oral capsule (10 sources)Cephalosporin AntibacterialStart: 10-18-2024 End: 22-59-3914wshg 1 capsule by mouth every six hoursCephalexin 500 mg capsule Discontinued 500 MG PO Every 6 hours 40 10 February 15, 2024 12:00am April 03, 2024 2:00pmcetirizine hydrochloride 10 mg oral tablet (20 sources)Histamine-1 Receptor AntagonistStart: 08-29-2022 End: 52-05-4614knph 1 tablet by mouth once dailyCetirizine (Zyrtec) 10 mg Tablet Discontinued 10 MG PO Daily August 29, 2022 12:00am August 29, 2022 3:22pmStart: 05-20-2018 End: 22-24-8870trat 1 capsule by mouth once dailyCetirizine (Zyrtec) 10 mg Capsule Discontinued 10 MG PO Daily May 20, 2018 1:00am June 18, 2023 5:05pmStart: 01-12-2017 End: 55-62-1264erde 1 tablet by mouth once dailyCetirizine (Zyrtec) 10 mg Capsule Discontinued 1 TAB PO Daily January 12, 2017 12:00am May 20, 2017 10:36amtake 1 tablet by mouth in the morningcetirizine (ZyrTEC) 5 MG tablet Take 5 mg by mouth in the morning. Activeclindamycin 20 mg/ml vaginal cream (14 sources)Lincosamide AntibacterialStart: 01-24-2024 End: 99-31-6652Cjqodqkruzg Phosphate 2 % cream Discontinued VAGINAL January 24, 2024 12:00am February 15, 2024 8:39amStart: 01-24-2024 End: 03-92-9061Bjjttezhvsm Phosphate Discontinued VAGINAL January 24, 2024 12:00am February 15, 2024 8:39amStart: 01-18-2024 End: 14-16-6644pyanrlkrlfg (Cleocin) 2 % vaginal cream Indications: Bacterial Vaginosis Insert 1 applicator into the vagina at bedtime for 7 days 40 g 2 01/18/2024 01/25/2024 ActiveclonazePAM 1 mg oral tablet (20 sources)BenzodiazepineStart: 08-29-2022 End: 24-17-6709hcog 1 tablet by mouth once daily 30 minutes before bedtime Clonazepam 1 mg tablet Discontinued 1 MG PO Daily at bedtime January 01, 2024 3:58pm 2024 4:03pm administer 30 minutes before bedtime Start: 15-66-5061yeml 1 tablet by mouth every twenty-four hoursclonazePAM 1 MG 1 tablet Orally Once a day for 30 days May, ActiveStart: 20-70-8311bkji 1 tablet by mouth every twenty-four hoursclonazePAM 1 MG 1 tablet Orally Once a day Feb, ActiveStart: 60-18-1218alpd 1 tablet by mouth every twenty-four hoursclonazePAM 1 MG 1 tablet Orally Once a day Mar, ActiveStart: 05-20-2017 End: 53-39-5584sugn 1 tablet by mouth once daily at bedtimeClonazepam 1 mg Tablet Discontinued 1 MG PO Daily at bedtime May 20, 2017 1:00am November 02, 2020 9:03pmclotrimazole 10 mg oral lozenge (15 sources)Azole AntifungalStart: 07-09-2023 End: 93-26-1831Rapcdnhlxryc 10 mg shaun Discontinued 10 MG MUCOUS MEM Every 4 hours 60 July 09, 2023 12:00am January 01, 2024 3:15pm12 hr dextromethorphan hydrobromide 30 mg / guaiFENesin 600 mg extended release oral tablet (7 sources)Uncompetitive A-lkoznj-G-aspartate Receptor Antagonist, Sigma-1 AgonistStart: 10-05-2024 End: 49-72-7343vnay 1 tablet by mouth every twelve hoursDextromethorphan- Guaifenesin (Mucus Dm) 30-600 mg tablet extended release 12 hr Discontinued TAB POJune 2024 12:00am October 08, 2024 1:47pmStart: 10-05-2024 End: 75-57-4526ikle 1 tablet by mouth every twelve hoursDextromethorphan- Guaifenesin (Mucus Dm) 30-600 mg tablet extended release 12 hr Discontinued TAB POJune 2024 12:00am October 08, 2024 1:47pmStart: 07-06-3069wngk 1 tablet by mouth every twelve hoursDextromethorphan-Guaifenesin (Mucus Dm) 30-600 mg tablet extended release 12 hr Active TAB PO October 05, 2024 12:00amStart: 09-29-2024 End: 41-30-0022unoz 1 tablet by mouth once as neededDextromethorphan-guaiFENesin (Mucinex DM) 30-600 MG tablet sustained-release 12 hour Indications: Upper respiratory tract infection, unspecified type Take 1 tablet by mouth every 12 (twelve) hours ifneeded (as needed) for up to 5 days 28 tablet 09/29/2024 10/04/2024 Activedocusate sodium 100 mg oral capsule (20 sources)Start: 04-17-2021 End: 92-10-2190hpmn 1 capsule by mouth twice daily as needed for constipation Docusate Sodium (Colace) 100 mg capsule Discontinued 100 MG PO Twice daily as needed for constipation April 17, 2021 8:47am August 29, 2022 3:20pmStart: 03-04-2017 End: 93-81-6133ipjz 1 capsule by mouth twice daily as needed for constipation Docusate Sodium (Colace) 100 mg capsule Discontinued 100 MG PO Twice daily as needed for constipation 60 March 04, 2017 10:03am May 20, 2017 10:36am eletriptan 20 mg oral tablet (7 sources)Serotonin-1b and Serotonin-1d Receptor AgonistStart: 06-16-2024 End: 62-01-2568ryrl 1 tablet by mouth every two hoursEletriptan (Relpax) 20 mg tablet Discontinued 0 PO .COMPLEX 9 June 16, 2024 1:00am June 16, 2024 2:05pm take 1 tab at onset of headache; if no relief may repeat 1 tab after at least 2 hrs; max = 4 tabs/24 hr PONorgestimate-Ethinyl Estradiol (20 sources)Progestin, EstrogenStart: 06-10-2017 End: 64-14-8009rnql 1 tablet by mouth once dailyNorgestimate-Ethinyl Estradiol (Sprintec (28)) 0.25-35 mg-mcg tablet Discontinued 1 TAB PO Daily June 10, 2017 1:00am December 16, 2017 8:47amStart: 06-10-2017 End: 40-67-1409boix 1 tablet by mouth once dailyNorgestimate-Ethinyl Estradiol (Sprintec (28)) 0.25-35 mg-mcg tablet Discontinued 1 TAB PO Daily June 10, 2017 12:00am December 16, 2017 7:47amStart: 05-20-2017 End: 64-50-5566Ejbvmcyzhgoy-Ethinyl Estradiol 0 tablet Discontinued May 20, 2017 1:00am June 10, 2017 8:51amStart: 05-20-2017 End: 07-23-4616Owkjfpdzwhtq-Ethinyl Estradiol 0 tablet Discontinued TABLET May 20, 2017 1:00am June 10, 2017 8:51amStart: 05-20-2017 End: 20-54-3450Hoaohgnapqdu-Ethinyl Estradiol 0 tablet Discontinued TABLET May 20, 2017 12:00am June 10, 2017 7:51amStart: 05-20-2017 End: 44-78-0693Qrasykunwedf-Ethinyl Estradiol Discontinued TABLET May 20, 2017 1:00am June 10, 2017 8:51amStart: 05-20-2017 End: 01-15-1479Akdmhehmawkr-Ethinyl Estradiol Discontinued TABLET May 20, 2017 12:00am June 10, 2017 7:51am24 hr ferrous sulfate 142 mg extended release oral tablet (16 sources)Start: 01-24-2024 End: 81-98-3636twtt 1 tablet by mouth once dailyFerrous Sulfate (Slow Fe) 137 mg (45 mg iron) tablet extended release Discontinued 137 MG PO Daily January 24, 2024 12:00am April 03, 2024 2:01pmtake 1 tablet by mouth every twenty- four hoursFerrous Sulfate 325 (65 Fe) MG 1 tablet Orally Once a day Active fluticasone propionate 0.05 mg/actuat metered dose nasal spray (20 sources)CorticosteroidStart: 08-29-2022 End: 03-89-0706Msvyvifvnqi Propionate 50 mcg/actuation spray,suspension Discontinued 1 SPRAY INTRANASAL Daily October 30, 2023 11:23am April 03, 2024 2:19pmStart: 08-47-4916irai 2 spray(s) nasal route once dailyFluticasone Propionate 50 MCG/ACT 2 sprays Nasally Once a day May, ActiveStart: 28-10-1550puwm 1 spray(s) nasal route once dailyFluticasone Propionate 50 MCG/ACT 1 spray in each nostril Nasally Once a day Apr, ActiveStart: 73-92-9724idal 1 spray(s) nasal route once dailyFluticasone Propionate 50 MCG/ACT 1 spray in each nostril Nasally Once a day Apr, Activetake 1 spray(s) nasal route in the morningfluticasone (Flonase) 50 MCG/ACT nasal spray Administer 1 spray into each nostril in the morning. Activefolic acid 1 mg oral tablet (17 sources)Start: 01-09-2017 End: 21-46-8221dzqm 1 tablet by mouth three times dailyFolic Acid 1 mg Tablet Discontinued 1 MG PO Three times daily January 09, 2017 12:00am May 012017 10:70ka605 actuat formoterol fumarate 0.005 mg/actuat / mometasone furoate 0.2 mg/actuat metered dose inhaler (11 sources)Corticosteroid, beta2-Adrenergic AgonistStart: 04-15-2021 End: 93-45-0291Nijdtkhkzk-Formoterol (Dulera) 200-5 mcg/actuation HFA aerosol inhaler Discontinued INHALATION April 15, 2021 1:00am August 29, 2022 3:20pm Start: 82-47-3873vtpf 2 puff(s) by inhalation twice dailyDulera 200-5 MCG/ACT 2 puffs Inhalation Twice a day for 30 days Nov, ActiveStart: hr loratadine 10 mg / pseudoephedrine sulfate 240 mg extended release oral tablet (17 sources)alpha-Adrenergic AgonistStart: 05-20-2018 End: 25-50-8189wlwf 1 tablet by mouth once daily as needed, then take 1 tablet by mouth every twenty-four hours asneededLoratadine-Pseudoephedrine (Loratadine- D) 10-240 mg tablet extended release 24 hr Discontinued 1 TAB PO Daily as needed for sinus symptoms May 20, 2018 1:00am November 02, 2020 9:02pmMometasone- Formoterol (Dulera) 200-5 mcg/actuation HFA aerosol inhaler (13 sources)Start: 04-15-2021 End: 97-51-6345Ztwelftgem-Formoterol (Dulera) 200-5 mcg/actuation HFA aerosol inhaler Discontinued INHALATION April 15, 2021 12:00am August 29, 2022 2:20pm Start: 04-15-2021 End: 02-30-5838Pwtduvutef-Formoterol (Dulera) 200-5 mcg/actuation HFA aerosol inhaler Discontinued INHALATION April 15, 2021 1:00am August 29, 2022 3:20pm naphazoline hydrochloride 0.25 mg/ml / pheniramine maleate 3 mg/ml ophthalmic solution (17 sources)Start: 12-16-2017 End: 55-87-8205sifw 0.025-0.3 drop(s) into the eye(s) four times daily as needed Naphazoline-Pheniramine (Naphcon-A) 0.025-0.3 % drops Discontinued 2 DROPS OPHTHALMIC Four times daily as needed for itching December 16, 2017 8:59am May 20, 2018 6:02pmomeprazole 40 mg delayed release oral capsule (20 sources)Proton Pump InhibitorStart: 04-15-2021 End: 02-02-5368Cxklpmlubf 40 mg capsule,delayed release(DR/EC) Discontinued MG April 15, 2021 1:00am August 3:21pmStart: 04-15-2021 End: 34-99-1725Dykfpevmkb Discontinued MG April 15, 2021 1:00am August 29, 2022 3:21pmStart: 03-02-2017 End: 96-44-2798iojs 20 mg by mouth once dailyOmeprazole Magnesium (Prilosec) 10 mg Susp,Delayed Release For Recon Discontinued 20 MG PO Daily March 02, 2017 12:00am May 20, 2017 10:35amondansetron 4 mg disintegrating oral tablet (20 sources)Serotonin-3 Receptor AntagonistStart: 05-20-2017 End: 96-20-1119fgkb 1 tablet by mouth every eight hours as needed for nausea and vomitingOndansetron (Zofran Odt) 4 mg tablet,disintegrating Discontinued 4 MG PO Q8H as needed for nausea and vomiting 3 May 20, 2017 2:41pm December 16, 2017 8:47amtake 1 tablet by mouth every six hours as neededtake 1 tablet by mouth every twenty-four hoursZofran 4 MG 1 tablet Orally Once a day Active phentermine hydrochloride 37.5 mg oral tablet (20 sources)Sympathomimetic Amine AnorecticStart: 12-05-2022 End: 19-51-4735wemn 1 tablet by mouth once daily before breakfastphentermine (Adipex-P) 37.5 MG tablet TAKE 1 TABLET BY MOUTH EVERY DAY before breakfast for 30 days12/05/2022 10/21/2024 Discontinued (Therapy completed)Start: 12-29-2021 take 1 tablet by mouth every twenty-four hoursAdipex-P 37.5 MG 1 tablet Orally Once a day for 30 days Dec, ActiveStart: 18-77-8203ofql 1 tablet by mouth every twenty-four hoursAdipex-P 37.5 MG 1 tablet Orally Once a day for 30 days Nov, ActiveStart: 02-96-5182quww 1 tablet by mouth every twenty- four hoursAdipex-P 37.5 MG 1 tablet Orally Once a day for 30 days Oct, ActivePnv,Calcium 13-Axei-Shqfv Acid ( Plus (Calcium Carb)) 27 mg iron- 1 mg tablet (17 sources)Start: 04-15-2021 End: 90-82-6780Aty,Calcium 59-Tzhp-Cehri Acid ( Plus (Calcium Carb)) 27 mg iron- 1 mg tablet Discontinued TAB April 15, 2021 1:00am August 29, 2022 3:pmStart: 04-15-2021 End: 90-14-8563Wfi,Calcium 85-Cpka-Tiwuy Acid ( Plus (Calcium Carb)) 27 mg iron- 1 mg tablet Discontinued TAB TABLET April 15, 2021 12:00am August 29, 2022 2:21pmStart: 04-15-2021 End: 94-65-8670Uhc,Calcium 50-Yufn-Fgeeg Acid ( Plus (Calcium Carb)) 27 mg iron- 1 mg tablet Discontinued TAB TABLET April 15, 2021 1:00am August 29, 2022 3:21pmStart: 85-83-7329Hjg,Calcium 22-Tctg-Sjpvl Acid ( Plus (Calcium Carb)) 27 mg iron- 1 mg tablet Active TAB TABLET April 15, 2021 12:00ampredniSONE 20 mg oral tablet (20 sources)Start: 10-09-2023 End: 38-80-1286Qxqbbwovaf 20 mg tablet Discontinued 20 MG PO As Directed October 09, 2023 12:13pm December 3:15pm BID for 5 days then Daily for 5 daysStart: 06-30-2023 End: 59-19-6986rppk 1 tablet by mouth twice dailyPrednisone 20 mg tablet Discontinued 20 MG PO Twice daily 10 June 30, 2023 1:00am July 23, 2023 10:24amPrenatal Vit 41-Xnih-Tcoii-Dha ( + Dha) 28 mg iron- 975 mcg-200 mg Combo Pack (17 sources)Start: 01-09-2017 End: 19-02-8184jufe 1 tablet by mouth once dailyPrenatal Vit 52-Scap-Rmxjp-Dha ( + Dha) 28 mg iron- 975 mcg-200 mg Combo Pack Discontinued 1 TAB PO Daily January 09, 2017 12:00am May 20, 2017 10:35amStart: 01-09-2017 End: 00-84-3969cvlf 1 tablet by mouth once dailyPrenatal Vit 23-Otiu-Yazuo-Dha ( + Dha) 28 mg iron- 975 mcg-200 mg Combo Pack Discontinued 1 TAB PO Daily January 08, 2017 11:00pm May 20, 2017 9:35amrimegepant 75 mg disintegrating oral tablet (20 sources)Start: 08-14-2024 End: 66-03-6854Neujaiyexc (Nurtec Odt) 75 mg tablet,disintegrating Discontinued 75 MG PO Every 48 hours as needed for migraine headache August 14, 2024 12:00am January 18, 2025 12:31pmStart: 04-03-2024 End: 62-02-8217Lcciauejcr (Nurtec Odt) 75 mg tablet,disintegrating Discontinued 75 MG PO Every 48 hours as needed for migraine headache April 24, 2024 10:02am June 16, 2024 2:06pmSemaglutide (5 sources)Start: 08-14-2024 End: 08-30-7926Ewqiwghipup (Ozempic) 0.25 mg or 0.5 mg (2 mg/3 mL) pen injector Discontinued 0.25 MG SUBCUT every week 3 August 14, 2024 12:00am October 08, 2024 1:46pmStart: 42-43-0399Zgzynrsxpbo (Ozempic) 0.25 mg or 0.5 mg (2 mg/3 mL) pen injector Active 0.25 MG SUBCUT every week 3Apr2024 12:00am sertraline 50 mg oral tablet (20 sources)Serotonin Reuptake InhibitorStart: 11-02-2020 End: 55-33-6376smgg 2 tablets by mouth once dailySertraline 25 mg tablet Discontinued 50 MG PO Daily November 02, 2020 12:00am June 18, 2023 5:13pm Start: 11-02-2020 End: 19-47-2756ygkh 50 mg by mouth once dailySertraline Discontinued 50 MG PO Daily November 02, 2020 12:00am June 18, 2023 5:13pmStart: 02-03-2020 End: 13-53-9050flmn 1 tablet by mouth once dailySertraline (Zoloft) 50 mg tablet Discontinued 50 MG PO Daily June 18, 2023 1:00am October 30, 2023 11:23am FreeTextSi tablet Orally Once a day; Note: Source Status: Taking; Refills: 1; Qty: 90 Tablet; Provider: Sara Navarro PSUMAtriptan 50 mg oral tablet (20 sources)Serotonin-1b and Serotonin-1d Receptor AgonistStart: 05-20-2024 End: 79-98-9998krqi 1 tablet by mouth every two hoursSumatriptan Succinate (Imitrex) 50 mg tablet Discontinued 0 PO .COMPLEX May 20, 2024 1:00am June 16, 2024 12:08pm take 1 tab at onset of headache; if no relief may repeat 1 tab after atleast 2 hrs; max = 4 tabs/24 hr POSUMAtriptan (Imitrex) 50 MG tablet every 12 (twelve) hours. Activeterconazole 4 mg/ml vaginal cream (20 sources)Azole AntifungalStart: 10-05-2024 End: 34-30-4438Vdkekyrfxja 0.4 % cream Discontinued VAGINAL October 05, 2024 12:00am October 08, 2024 1:47pmStart: 04-09-2024 End: 50-89-2330nymfuawwnig (Terazol 7) 0.4 % vaginal cream Indications: Vulvovaginal Candidiasis Insert 1 applicator into the vagina at bedtime for 7 days 45 g 2 04/09/2024 04/16/2024 ActiveStart: 01-24-2024 End: 56-51-1518Hhldbhtcqlx 0.4 % cream Discontinued VAGINAL January 24, 2024 12:00am February 15, 2024 8:40amStart: 01-24-2024 End: 20-96-3886Qyskhfpggig Discontinued VAGINAL January 24, 2024 12:00am February 15, 2024 8:40amStart: 01-18-2024 End: 72-56-3740joutrvchtrr (Terazol 7) 0.4 % vaginal cream Indications: Vulvovaginal Candidiasis Insert 1 applicator into the vagina at bedtime for 7 days 45 g 2 01/18/2024 01/25/2024 ActiveStart: 01-12-2017 End: 52-54-3895Zhywzwwdtpl (Terazol 7) 0.4 % cream Discontinued 1 APPLICATOR VAGINAL Daily at bedtime 45 2016 12:00am February 02, 2017 9:59am topiramate 25 mg oral tablet (20 sources)Start: 05-20-2017 End: 90-50-8140wlpm 1 tablet by mouth once dailyTopiramate (Topamax) 25 mg tablet Discontinued 25 MG PO Daily May 20, 2017 1:00am December 16, 2017 8:47amtraMADol hydrochloride 50 mg oral tablet (17 sources)Opioid AgonistStart: 03-04-2017 End: 84-87-7356mkaa 1 tablet by mouth every four hours as needed for pain Tramadol 50 mg tablet Discontinued 50 MG PO .every 4 hours as needed for pain March 04, 201712:00am May 20, 2017 10:35am Problems Active Problems Problem ClassificationProblemDateDocumented DateEpisodic/ChronicAbdominal pain (4 sources)Pain in female pelvis; Translations: [Pelvic and perineal pain] 04-73-7251TdijpuanMbynrjr disorders (20 sources)Anxiety; Translations: [Anxiety disorder, unspecified]Onset: 01-28-2021 Resolved: 47-83-1180JizrngsFlqjli (19 sources)Cough variant asthma; Translations: [Cough variant asthma]11-17-2023 ChronicComplications of surgical procedures or medical care (6 sources)Postoperative complication; Translations: [Other postprocedural complications and disorders of genitourinary system]96-35-9774QskqmpvxSdecdtvgma associated with dizziness or vertigo (4 sources)Dizziness and giddiness; Translations: [Dizziness and giddiness] EpisodicContraceptive and procreative management (15 sources)Intrauterine contraceptive device in situ; Translations: [Presence of (intrauterine) contraceptive device]08-60-3124MzssdjmcDxrnyebzif and other anemia (11 sources)Anemia; Translations: [Anemia, unspecified]89-86-9689Dacafrir Deficiency and other anemia (9 sources)Anemia, unspecified; Translations: [Anemia, unspecified]Onset: 453115-57-3624IeuhdshuSbpojnux mellitus without complication (20 sources)Hyperglycemia, unspecified; Translations: [Hyperglycemia]Onset: 62-23-0744UyucpdbhQbhpewyfx of lipid metabolism (20 sources)Hyperlipidemia; Translations: [Hyperlipidemia, unspecified]Onset: 87-15-6670IsedryhEpxdv or threatened labor (17 sources)Premature labor; Translations: [ labor without delivery, unspecified trimester]11-15-7848ElmxoipuIcbwxiwqtf disorders (20 sources)Gastroesophageal reflux disease; Translations: [Gastro-esophageal reflux disease without esophagitis]47-54-0351SxjurnwKgkghghvfjnbu symptoms and ill-defined conditions (20 sources)Female stress incontinence; Translations: [Stress incontinence (female) (male)]Onset: 770720-17-7525JytthbwTakegqtzaedif symptoms and ill-defined conditions (1 source)Dysuria; Translations: [Dysuria]51-28-3183SasphhrhQmbuizvd; including migraine (20 sources)Migraine; Translations: [Migraine, unspecified, not intractable, without status migrainosus]Onset: 609955-13-2216QnwkleqZxcrskbuksoyt and screening for infectious disease (11 sources)Contact with and (suspected) exposure to other viral communicable diseases; Translations: [Patient encounter status]98-83-8625DcwlrjnmVfnvmappaaad diseases of female pelvic organs (20 sources)Vulvovaginitis; Translations: [Acute vaginitis]Onset: 11-09-2022 Resolved: 933704-45-3326FzdziygeYshpattim (17 sources)Influenza; Translations: [Influenza due to unidentified influenza virus with other respiratory manifestations]58-47-4246SmcmzeycPdroxmrhh disorders (20 sources)Menorrhagia; Translations: [Excessive and frequent menstruation with regular cycle]Onset: 135508-57-6763ZzhsloaZxuikwnrlabud mental health disorders (20 sources)Sleep walking disorder; Translations: [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]] Onset: 02-02-2021 Resolved: 54-98-6503XjuyeebWjqo disorders (20 sources)Depressive disorder; Translations: [Major depressive disorder, single episode, unspecified]Onset: 05-30-2021 Resolved: 09-23-3422QxcxotiWtfejwa (16 sources)Candidiasis of mouth; Translations: [Candidal stomatitis]07-09-2023 EpisodicNausea and vomiting (20 sources)Nausea and vomiting; Translations: [Nausea with vomiting, unspecified]42-64-3921KdznjuxrQuoxgumpq of unspecified nature or uncertain behavior (1 source)Neoplasm of uncertain behavior of skinEpisodicNonmalignant breast conditions (1 source)Mastodynia; Translations: [Mastodynia]Onset: 01-33-6370CgrmkbkqYzckr aftercare (2 sources)Postoperative visit; Translations: [Encounter for other specified surgical aftercare]30-11-6340PnrhjqxbSslaw and unspecified benign neoplasm (1 source)Hemangioma unspecified siteEpisodicOther complications of (16 sources)Anemia in mother complicating , childbirth AND/OR puerperium; Translations: [Anemia complicating , third trimester]Onset: 616472-02-1637RoqieklVasxp ear and sense organ disorders (14 sources)Hearing loss of right ear; Translations: [Unspecified hearing loss, right ear]ChronicOther endocrine disorders (14 sources)Polycystic ovaries; Translations: [Polycystic ovarian syndrome] ChronicOther endocrine disorders (20 sources)Hypoglycemia; Translations: [Hypoglycemia, unspecified]06-18-2023 ChronicOther endocrine disorders (1 source)Hypoglycemia, unspecifiedChronicOther female genital disorders (4 sources)Vaginal bleeding; Translations: [Abnormal uterine and vaginal bleeding, unspecified]38-71-5331JkhwovvKsond female genital disorders (2 sources)Vaginal discharge; Translations: [Other specified noninflammatory disorders of vagina]31-88-3239SemjjwfyPqkqg lower respiratory disease (3 sources)Cough; Translations: [Cough R05]Onset: 02-02-2021 Resolved: 86-18-5479ZvpwntbaFynpf lower respiratory disease (17 sources)Cough; Translations: [Cough]58-00-9840NmcwbfcwJxywo nervous system disorders (7 sources)Carpal tunnel syndrome; Translations: [Carpal tunnel syndrome, unspecified upper limb]ChronicOther nervous system disorders (15 sources)Acute postoperative pain; Translations: [Other acute postprocedural pain]94-88-5279IktwhuonPwkhp nutritional; endocrine; and metabolic disorders (20 sources)Body mass index 30+ - obesity; Translations: [Body mass index (BMI) 30.0-30.9, adult]41-55-5778KxohhcpVvmcn nutritional; endocrine; and metabolic disorders (12 sources)Obese class II; Translations: [Body mass index (BMI) 36.0-36.9, adult]ChronicOther nutritional; endocrine; and metabolic disorders (5 sources)Morbid obesity; Translations: [Morbid (severe) obesity due to excess calories]ChronicOther nutritional; endocrine; and metabolic disorders (1 source)Body mass index (BMI) 35.0-35.9, adultOnset: 11-01-2021 Resolved: 30-91-1911CziguzqHuqzu nutritional; endocrine; and metabolic disorders (1 source)Morbid (severe) obesity due to excess caloriesOnset: 11-01-2021 Resolved: 18-55-5978ZdourbdOtcfq nutritional; endocrine; and metabolic disorders (20 sources)Obese class I; Translations: [Body mass index (BMI) 34.0-34.9, adult]ChronicOther nutritional; endocrine; and metabolic disorders (20 sources)Obesity; Translations: [Obesity, unspecified]05-26-7562XyzfruhZxuhb nutritional; endocrine; and metabolic disorders (1 source)Body mass index (BMI) 34.0-34.9, adultOnset: 12-01-2021 Resolved: 63-83-5847DpxngraRmbjw nutritional; endocrine; and metabolic disorders (7 sources)Obesity, unspecified; Translations: [Obesity, unspecified]Onset: 12-01-2021 Resolved: 04-67-4106QznpvvzJgksj nutritional; endocrine; and metabolic disorders (1 source)Body mass index (BMI) 33.0-33.9, adultChronicOther nutritional; endocrine; and metabolic disorders (1 source)Body mass index (BMI) 32.0-32.9, adultChronicOther nutritional; endocrine; and metabolic disorders (1 source)Body mass index (BMI) 30.0-30.9, adultChronicOther and delivery including normal (20 sources); Translations: [ state, incidental]Onset: 11-21-2016 Resolved: 49-63-8778FzenidpmGdmii screening for suspected conditions (not mental disorders or infectious disease) (2 sources)Patient encounter status; Translations: [Encounter for screening for malignant neoplasm of cervix]78-04-5640BwrmyxxoVrxpa skin disorders (1 source)Other hypertrophic disorders of the skinEpisodicOther upper respiratory disease (14 sources)Seasonal allergic rhinitis; Translations: [Other seasonal allergic rhinitis]ChronicOther upper respiratory disease (14 sources)Hoarse; Translations: [Dysphonia]EpisodicOther upper respiratory infections (7 sources)Sinusitis; Translations: [Chronic sinusitis, unspecified]10-05-2024 ChronicOther upper respiratory infections (20 sources)Viral upper respiratory tract infection; Translations: [Acute upper respiratory infection, unspecified]52-47-5218FdybrurvMadmpd media and related conditions (15 sources)Unspecified Eustachian salpingitis, unspecified ear; Translations: [Acute suppurative otitis media without spontaneous rupture of ear drum, bilateral]EpisodicProlapse of female genital organs (20 sources)Cystocele and rectocele co-occurrent with incomplete uterovaginal prolapse; Translations: [Incomplete uterovaginal prolapse]Onset: 09-11-2022 84-39-4467ZlemkdtMljtrwqj codes; unclassified (1 source)Pain, unspecifiedEpisodicResidual codes; unclassified (15 sources)FH: Crohn's disease; Translations: [Family history of other diseases of the digestive system]52-93-7813YrwtanjsSxtwebyy codes; unclassified (11 sources)Sleep disorder; Translations: [Sleep disorder, unspecified] 44-30-6274IhjbjjgcTbvnnfum codes; unclassified (3 sources)Sleep disorder, unspecified; Translations: [Sleep disturbance, unspecified]59-56-1709SdyxakqjEkinhkiv codes; unclassified (2 sources)Unprotected sexual intercourse; Translations: [High risk heterosexual behavior]44-23-1577NxulyrozLdzrxpzqidw; intervertebral disc disorders; other back problems (14 sources)Neck pain; Translations: [Cervicalgia]Episodic Past or Other Problems Problem ClassificationProblemDateDocumented DateEpisodic/ChronicFever of unknown origin (7 sources)Fever; Translations: [Fever, unspecified]EpisodicHeadache; including migraine (7 sources)Headache; Translations: [Headache]EpisodicHeadache; including migraine (1 source)Headache; including migraineOther complications of (16 sources) growth restriction; Translations: [Maternal care for other known or suspected poor growth, second trimester, other fetus]Onset: 01-23-2017 Resolved: 721495-98-4543KwillpdyFqbaw female genital disorders (7 sources)Secondary cervical infertility ; Translations: [Incompetence of cervix uteri]EpisodicOther gastrointestinal disorders (16 sources)Constipation; Translations: [Constipation, unspecified]Onset: 478492-73-2473DbhcalvvGsxre upper respiratory disease (1 source)Dysphonia; Translations: [Hoarseness R49.0]Onset: 01-28-2021 Resolved: 31-44-1300NfnplubzDattyinf codes; unclassified (7 sources)Insomnia; Translations: [Insomnia, unspecified]EpisodicResidual codes; unclassified (7 sources)Gestation period, 29 weeks; Translations: [29 weeks gestation of ]EpisodicResidual codes; unclassified (7 sources)Gestation period, 8 weeks; Translations: [8 weeks gestation of ]EpisodicResidual codes; unclassified (1 source)29 weeks gestation of ; Translations: [29 weeks gestation of Z3A.29]Onset: 01-28-2021 Resolved: 47-29-7864CbkpfegpDljnnzozcser (1 source)Contact with and (suspected) exposure to covid-19 Z20.822Viral infection (7 sources)Zoster without complications; Translations: [Herpes zoster]Episodic Viral infection (14 sources)Disease caused by 2019-nCoV; Translations: [COVID-19] Results Test NameValueInterpretationReference RangeFacilityLaboratory - Chemistry and Chemistry - challengeon 22-46-6029Mazqxluce Ql (U)NegativeNegativeNOMS HealthcareGlucose [Mass/Vol]nrgNegativeNOMS HealthcareKetones Ql (U)Negative NegativeNOMS HealthcarepH (U)6 [pH]5.0 - 6.0NOMS HealthcareSpecific gravity (U) [Rel density]1.021.001 - 1.035NOMS HealthcareUrobilinogen (U) [Mass/Vol]0.2 mg/dL0.2 - 1.0NOMS HealthcareLaboratory - Hematology and Cell countson 33-15-8142Ykyvkxolmp Ql (U)2+NegativeNOMS HealthcareLaboratory - Specimen informationon 50-36-9077Hfnpgrfo type Nom (Spec)urineNOMS HealthcareSpecimen type Nom (Spec)urineNOMS HealthcareLaboratory - Urinalysison 76-36-1371Esudnqg Ql (U)NegativeNegativeNOMS HealthcareProtein Ql (U)NegativeNegativeNOMS HealthcareNo Panel Informationon 32-19-2512EUQNTMLFAIH DNA(PCR)NegativeNegatvie NOMS HealthcareInterpretation and review of laboratory resultsNormalNOMS HealthcareNOMS HealthcareInterpretation and review of laboratory resultsNormal NOMS HealthcareTRICHOMONASNegativeNegativeNOMS HealthcareNOMS Healthcare LEUKOCYTES+NegativeNOMS HealthcareNOMS HealthcareNo Panel Informationon 88-63-7222Czoxjrnktgklmw and review of laboratory resultsNormalNOMS Healthcare RESULT 1NegativeNegatvieNOMS HealthcareRESULT 2NegativeNegatvieNOMS Healthcare NOMS HealthcareS. pyogenes DNA CHRISTOPHER+probe Nom (Unsp spec)on 09-29-2024 Interpretation and review of laboratory resultsNormalNOMS HealthcareRESULT NegativeNegativeNOMS HealthcareNOMS HealthcareNo Panel InformationOrdered By: Jocy Rao on 12-81-4847Tcoyr Strep (POC)[facility] Mammography reportOrdered By: Alphonse Millard on 47-67-7084Uymbzzapnk imaging study [facility] [address] [place] [address] [place] [address] Mammography Report Signed Patient: Elba Coffman MR# : [id number] : 1990 Acct:[id number] Age/Sex: 34 / F Adm Date: 5 Loc: [place] Room: Type: [facility] Attending Dr: Tariq Andrew MD Ordering Provider: SUGAR Ivy Date of Service: 06/27/24 Procedure(s): MM diagnostic mammo BI w/CAD; US breast LT complete Accession Number(s): ([id number]) MM/MM diagnostic mammo BI w/CAD: Breast pain and lump ([id number]) US/US breast LT complete: Left breast lump and pain Copies to: DO Tariq Ortiz MD-[facility]OM[facility]~ DIAGNOSTIC LEFT BREAST MAMMOGRAM - FULL FIELD DIGITAL WITH TOMOSYNTHESIS CLINICAL DATA: Palpable lump in lateral aspect left breast which is not reproducible today. Left breast tenderness laterally. Tomosynthesis mediolateral left and bilateral Craniocaudal and mediolateral oblique views of the left breast were obtained using low-dose digital technique.This is a baseline study. This examination was reviewed with the aid of CAD. The breast parenchyma is heterogeneously dense. There are a few punctate benign- appearing calcifications. There are no dominant masses, typically malignant calcifications or architectural distortion.This is a baseline study. Limited left breast ultrasound: In the region of discomfort and previous palpable abnormality in the lateral aspect of the left breast there is heterogeneous fibroglandular tissue. There isno evidence of cyst, mass, architectural distortion, or atypical calcification. MM/MM diagnostic mammo BI w/CAD IMPRESSION: NO MAMMOGRAPHIC EVIDENCE OF MALIGNANCY. ROUTINE FOLLOW-UP IS RECOMMENDED IN ONE YEAR. RESULT CODE: 2 Benign Findings(s) DENSITY CODE: 3 (approximately 51-75% glandular) The breasts are heterogeneouslydense, which may obscure small masses. FOLLOW UP: 1YR The false-negative rate of mammography is approximately 10-percent. Management of a palpable abnormality must be based on clinical grounds. Impression dictated by: Alphonse Millard M.D.06/27/2024 9:27 AM Dictation Location: [facility] Dictated By: Alphonse Millard II, MD 06/27/24915 Signed By: [id number] [facility] Work Phone: US breast LT completeon 80-15-3289GX breast LT completeST[facility] [address] [place] [address] Mammography Report Signed Patient: Elba Coffman MR#: [id number] : 1990 Acct:[id number] Age/Sex: 34 / F Adm Date: 06/27/24 Loc: [place] Room: Type: [facility] Attending Dr: Tariq Andrew MD Ordering Provider: SUGAR Ivy Date of Service: 06/27/24 Procedure(s): MM diagnostic mammo BI w/CAD; US breast LT complete Accession Number(s): ([id number]) MM/MM diagnostic mammo BI w/CAD: Breast pain and lump ([id number]) US/US breast LT complete: Left breast lump and pain Copies to: DO Tariq Ortiz MD-[facility] DIAGNOSTIC LEFT BREAST MAMMOGRAM - FULL FIELD DIGITAL WITH TOMOSYNTHESIS CLINICAL DATA: Palpable lump in lateral aspect left breast which is not reproducible today. Left breast tenderness laterally. Tomosynthesis mediolateral left and bilateral Craniocaudal and mediolateral oblique views of the left breast were obtained using low-dose digital technique. This is a baseline study. This examination was reviewed with the aid of CAD. The breast parenchyma is heterogeneously dense. There are a few punctate benign-appearing calcifications. There are no dominant masses, typically malignant calcifications or architectural distortion. This is a baseline study. Limited left breast ultrasound: In the region of discomfort and previous palpable abnormality in the lateral aspect of the left breast there is heterogeneous fibroglandular tissue. There is no evidence of cyst, mass, raven ectural distortion, or atypical calcification. MM/MM diagnostic mammo BI w/CAD IMPRESSION: NO MAMMOGRAPHIC EVIDENCE OF MALIGNANCY. ROUTINE FOLLOW-UP IS RECOMMENDED IN ONE YEAR. RESULT CODE: 2 Benign Findings(s) DENSITY CODE: 3 (approximately 51-75% glandular) The breasts are heterogeneously dense, which may obscure small masses. FOLLOW UP: 1YR The false-negative rate of mammography is approximately 10-percent. Management of a palpable abnormality must be based on clinical grounds. Impression dictated by: Alphonse Millard M.D.06/27/2024 9:27 AM Dictation Location: [facility] Dictated By: Alphonse Millard II, MD 06/27/24 0916 Signed By: 06/27/24 0927No[facility] IroclF3S with Estimated Average Gluon 33-95-1928Kuhulcf [Mass/Vol]111 mg/dLHCA Florida Brandon Hospital Physician GroupComment on above:Result Comment: PERFORMED BY: [address] [place] [address] PATHOLOGIST SHOOK SPLICER LONI LINDO M.D.Performed By: #### TSH3, CBC, CMP, A1C WT eA, LIPID #### [facility] [address] [place] [address] AXSCfS0b (Bld) [Mass fraction]5.5 %Normal4.3-5.6[facility] Physician GroupComment on above:Result Comment: Increased risk for diabetes: 5.7 - 6.4 diabetes: >6.4 glycemic control for adults with diabetes: <7.0Performed By: #### TSH3, CBC, CMP, A1C WT eA, LIPID #### [facility] [address] [id number] USAAlanine aminotransferase [Enzymatic activity/volume] in Serum or PlasmaOrdered By: Ramon Ruiz on 86-95-8297RTA [Catalytic activity/Vol] Alanine aminotransferase [Enzymatic activity/volume] in Serum or Plasma [facility] HospitalAlbumin [Mass/volume] in Serum or Plasma by Bromocresol green (BCG) dye binding methoOrdered By: Ramon Ruiz on 04-03-2024 Albumin BCG dye [Mass/Vol]Albumin [Mass/volume] in Serum or Plasma by Bromocresol green (BCG) dye binding metho3.5-5.7FPeoples HospitalAlkaline phosphatase [Enzymatic activity/volume] in Serum or PlasmaOrdered By: Ramon Ruiz on 99-83-6391SVN [Catalytic activity/Vol]Alkaline phosphatase [Enzymatic activity/volume] in Serum or Hppego32-895VxxuqdngbTrumbull Memorial HospitalAspartate aminotransferase [Enzymatic activity/volume] in Serum or Plasma Ordered By: Ramon Ruiz on 83-63-5077EOF [Catalytic activity/Vol]Aspartate aminotransferase [Enzymatic activity/volume] in Serum or Cadqag94-89LajzwlopoTrumbull Memorial HospitalBasophils Auto (Bld) [#/Vol]Ordered By: Ramon Ruiz on 44-23-3934Svhhyusac (Bld) [#/Vol]Automated basophil count0.0-0.2FPeoples HospitalBasophils/100 WBC Auto (Bld)Ordered By: Ramon Ruiz on 17-59-9665Ljyaowlrz/100 WBC (Bld)Automated basophil %.[facility] HospitalBilirubin.total [Mass/volume] in Serum or PlasmaOrdered By: Ramon Ruiz on 14-96-5107Urgqobiah [Mass/Vol]Bilirubin.total [Mass/volume] in Serum or Plasma 0.3-1.0[facility] HospitalBlood estimated average glucose determination by estimation from glycated hemoglobinOrdered By: Ramon Ruiz on 55-69-2082Bbugbih glucose Estimated from glycated hemoglobin (Bld) [Mass/Vol] Glucose mean value [Mass/volume] in Blood Estimated from glycated hemoglobin [facility] HospitalCalcium [Mass/volume] in Serum or PlasmaOrdered By: Ramon Ruiz on 95-30-9178Nicpicz [Mass/Vol]Calcium [Mass/volume] in Serum or Plasma8.6-10.3FPeoples HospitalCarbon dioxide, total [Moles/volume] in Serum or PlasmaOrdered By: Ramon Ruiz on 73-63-7684PZ2 [Moles/Vol]Carbon dioxide, total [Moles/volume] in Serum or Sfsrya05.0-31.0 [facility] HospitalChloride [Moles/volume] in Serum or Plasma Ordered By: Ramon Ruiz on 14-15-4723Kbcjvzij [Moles/Vol]Chloride [Moles/volume] in Serum or Jyavbb48-308SnzrtfmnfTrumbull Memorial HospitalComplete Blood Count Auto Diffon 29-45-0218Tfojkrnfz (Bld) [#/Vol]0.1 10*3/uLNormal0.0-0.2The [facility] Physician GroupComment on above:Result Comment: PERFORMED BY: [place] [address] PATHOLOGIST SHOOK SPLICER LONI LINDO M.D.Performed By: #### A1C WTH eA, SIENA, CBC, CMP, FE and TIBC #### [place] [address] USABasophils/100 WBC (Bld)0.8 %Normal.The [facility] Physician GroupComment on above:Performed By: #### A1C WTH eA, SIENA, CBC, CMP, FE and TIBC #### [place] [address] USAEosinophils (Bld) [#/Vol]0.2 10*3/uLNormal0.0-0.45The [facility] Physician GroupComment on above:Performed By: #### A1C WTH eA, SIENA, CBC, CMP, FE and TIBC #### [place] [address] USAEosinophils/100 WBC (Bld)3.0 %Normal.The [facility] Physician GroupComment on above:Performed By: #### A1C WTH eA, SIENA, CBC, CMP, FE and TIBC #### [place] [address] USAErythrocyte distribution width (RBC) [Ratio]14.5 %Normal 11.9-15.3The [facility] Physician GroupComment on above:Performed By: #### A1C WTH eA, SIENA, CBC, CMP, FE and TIBC #### [place] [address] USAHematocrit (Bld) [Volume fraction]37.7 %Jkamyn11.0-46.4The [facility] Physician GroupComment on above:Performed By: #### A1C WTH eA, SIENA, CBC, CMP, FE and TIBC #### [place] [address] USAHemoglobin (Bld) [Mass/Vol]12.6 g/iNDatmpd38.8-15.4The [facility] Physician GroupComment on above:Performed By: #### A1C WTH eA, SINEA, CBC, CMP, FE and TIBC #### [place] [address] USALymphocytes (Bld) [#/Vol]2.1 10*3/uLNormal1.00-4.8The [facility] Physician GroupComment on above:Performed By: #### A1C WTH eA, SIENA, CBC, CMP, FE and TIBC #### [place] [address] USALymphocytes/100 WBC (Bld)28.4 %Normal.The [facility] Physician GroupComment on above:Performed By: #### A1C WTH eA, SIENA, CBC, CMP, FE and TIBC #### [address]H (RBC) [Entitic mass]27.5 ibIfzgsr94.7-34.3The [facility] Physician GroupComment on above:Performed By: #### A1C WTH eA, SIENA, CBC, CMP, FE and TIBC #### [address] (RBC) [Entitic vol]82.5 zFAxestf70-722Emh [facility] Physician GroupComment on above:Performed By: #### A1C WTH eA, SIENA, CBC, CMP, FE and TIBC #### [place] [address] USAMean Corpuscular HGB Conc33.4 g/cVZzruvq18.0-35.0The [facility] Physician GroupComment on above:Performed By: #### A1C WTH eA, SIENA, CBC, CMP, FE and TIBC #### [place] [id number] USAMonocytes (Bld) [#/Vol]0.4 10*3/uLNormal0.0-0.8The [facility] Physician GroupComment on above:Performed By: #### A1C WTH eA, SIENA, CBC, CMP, FE and TIBC #### [place] [address] USAMonocytes/100 WBC (Bld)4.7 %Normal.The [facility] Physician GroupComment on above:Performed By: #### A1C WTH eA, SIENA, CBC, CMP, FE and TIBC #### [place] [address] USANeutrophils (Bld) [#/Vol]4.7 10*3/uLNormal1.8-7.7The [facility] Physician GroupComment on above:Performed By: #### A1C WTH eA, SIENA, CBC, CMP, FE and TIBC #### [place] [address] USANeutrophils/100 WBC (Bld)63.1 %Normal.The [facility] Physician GroupComment on above:Performed By: #### A1C WTH eA, SIENA, CBC, CMP, FE and TIBC #### [place] [address] USANRBC%0.1 /100{WBC}Normal0-0.5The [facility]ician Group Comment on above:Performed By: #### A1C WTH eA, SIENA, CBC, CMP, FE and TIBC #### [place] [address] USAPlatelet mean volume (Bld) [Entitic vol]8.6 fLNormal 6.3-10.7The [facility] Physician GroupComment on above:Performed By: #### A1C WTH eA, SIENA, CBC, CMP, FE and TIBC #### [place] [address] USAPlatelets (Bld) [#/Vol]255 10*3/dWXapxls498-508Uzy [facility] Physician GroupComment on above:Performed By: #### A1C WTH eA, SIENA, CBC, CMP, FE and TIBC #### [facility] [address] [place] [address] USARBC (Bld) [#/Vol]4.57 10*6/uLNormal3.60-5.00The [facility] Physician GroupComment on above:Performed By: #### A1C WTH eA, SIENA, CBC, CMP, FE and TIBC #### [facility] [address] [place] [address] USAWBC (Bld) [#/Vol]7.5 10*3/uLNormal3.8-11.6The [facility] Physician GroupComment on above:Performed By: #### A1C WTH eA, SIENA, CBC, CMP, FE and TIBC #### [place] [address] USAComprehensive Metabolic Panelon 38-13-2060Hytllgz [Mass/Vol]4.5 g/dLNormal3.5-5.7The [facility] Physician GroupComment on above: Performed By: #### TSH3, CBC, CMP, A1C WTH eA, LIPID #### [place] [address] USAAlbumin/Globulin [Mass ratio]1.6 {ratio}NormalThe [facility] Physician GroupComment on above:Performed By: #### TSH3, CBC, CMP, A1C WTH eA, LIPID #### [facility] [address] [place] [address] USAALP [Catalytic activity/Vol]57 U/YSspcly34-982Gpo [facility] Physician GroupComment on above:Performed By: #### TSH3, CBC, CMP, A1C WTH eA, LIPID #### [facility] [address] [place] [address] USAALT [Catalytic activity/Vol]17 U/LNormal7-52The [facility] Physician GroupComment on above:Performed By: #### TSH3, CBC, CMP, A1C WTH eA, LIPID #### [facility] [address] [place] [address] USAAnion gap [Moles/Vol]11.1 mmol/LNormal6.0-15.0The [facility] Physician GroupComment on above:Performed By: #### TSH3, CBC, CMP, A1C WTH eA, LIPID #### [facility] [address] [place] [address] USAAST [Catalytic activity/Vol]21 U/BHujrmu28-15Fri [facility] Physician GroupComment on above:Performed By: #### TSH3, CBC, CMP, A1C WTH eA, LIPID #### [facility] [address] [place] [address] USABilirubin [Mass/Vol]0.4 mg/dLNormal0.3-1.0The [facility] Physician GroupComment on above:Performed By: #### TSH3, CBC, CMP, A1C WTH eA, LIPID #### [facility] [address] [place] [address] USACalcium [Mass/Vol]9.4 mg/dLNormal8.6-10.3The [facility] Physician GroupComment on above:Performed By: #### TSH3, CBC, CMP, A1C WTH eA, LIPID #### [facility] [address] [place] [address] USAChloride [Moles/Vol]102 mmol/LUngqev16-061Wpw [facility] Physician GroupComment on above:Performed By: #### TSH3, CBC, CMP, A1C WTH eA, LIPID #### [facility] [address] [place] [address] USACO2 [Moles/Vol]27.8 mmol/YUumxku04.0-31.0The [facility] Physician GroupComment on above:Performed By: #### TSH3, CBC, CMP, A1C WTH eA, LIPID #### [facility] [address] [place] [address] USACreatinine [Mass/Vol]0.78 mg/dLNormal0.60-1.20The [facility] Physician GroupComment on above:Performed By: #### TSH3, CBC, CMP, A1C WTH eA, LIPID #### [facility] [address] [place] [address] USAGFR/1.73 sq M.predicted MDRD (S/P/Bld) [Vol rate/Area] mL/min/{1.73_m2}NormalThe [facility] Physician GroupComment on above:Performed By: #### TSH3, CBC, CMP, A1C WTH eA, LIPID #### [facility] [address] [place] [address] USAGlobulin (S) [Mass/Vol]2.9 g/dLNormalThe [facility] Physician GroupComment on above:Performed By: #### TSH3, CBC, CMP, A1C WTH eA, LIPID #### [facility] [address] [place] [address] USAGlucose [Mass/Vol]79 mg/gZDqzuvh57-905Pfb [facility] Physician GroupComment on above:Result Comment: Random Glucose Reference Range is dependent on time and content of last meal. Glucose of more than 200 mg/dL in a nonstressed, ambulatory subject supports the diagnosis of Diabetes Mellitus. ADA recommended reference rangePerformed By: #### TSH3, CBC, CMP, A1C WTH eA, LIPID #### [facility] [address] [place] [address] USAPotassium [Moles/Vol]3.9 mmol/LNormal3.5-5.1The [facility] Physician GroupComment on above:Performed By: #### TSH3, CBC, CMP, A1C WTH eA, LIPID #### [facility] [address] [place] [address] USAProtein [Mass/Vol]7.4 g/dLNormal6.4-8.9The [facility] Physician GroupComment on above:Performed By: #### TSH3, CBC, CMP, A1C WTH eA, LIPID #### [facility] [address] [place] [address] USASodium [Moles/Vol]137 mmol/JWceyhs384-005Sdr [facility] Physician GroupComment on above:Performed By: #### TSH3, CBC, CMP, A1C WTH eA, LIPID #### [facility] [address] [place] [address] USAUrea nitrogen [Mass/Vol]13 mg/dLNormal7-25The [facility] Physician GroupComment on above:Performed By: #### TSH3, CBC, CMP, A1C WTH eA, LIPID #### [facility] [address] [place] [address] USACreatinine [Mass/volume] in Serum or PlasmaOrdered By: Ramon Ruiz on 71-77-8155Yqofkhbiep [Mass/Vol]Creatinine [Mass/volume] in Serum or Plasma0.60-1.20[facility] HospitalEosinophils Auto (Bld) [#/Vol]Ordered By: Ramon Ruiz on 00-07-4995Fyivhtjkakr (Bld) [#/Vol]Automated eosinophil count0.0-0.45[facility] HospitalEosinophils/100 WBC Auto (Bld)Ordered By: Ramon Ruiz on 31-31-3701Ahpehuuxvxl/100 WBC (Bld)Automated eosinophil %.[facility] HospitalErythrocyte distribution width Auto (RBC) [Ratio]Ordered By: Ramon Ruiz on 16-82-8667Hgrhuuswluy distribution width (RBC) [Ratio]Erythrocyte distribution width [Ratio] by Automated count 11.9-15.3FPeoples HospitalFerritinon 03-49-1125Zapqokkm [Mass/Vol]10.9 ng/mLLow11.0-306.8The [facility] Physician GroupComment on above: Result Comment: PERFORMED BY: [facility] [address] [place] [address] PATHOLOGIST SHOOK SPLICER LONI LINDO M.D.Performed By: #### TSH3, CBC, CMP, A1C WT eA, LIPID #### [facility] [address] [place] [address] USAFerritin [Mass/volume] in Serum or PlasmaOrdered By: Ramon Ruiz on 94-22-6255Wwjxliwe [Mass/Vol]Ferritin [Mass/volume] in Serum or Plasma Low11.0-306.8[facility] HospitalGlobulin Calc (S) [Mass/Vol] Ordered By: Ramon Ruiz on 18-63-1149Emasqmeq (S) [Mass/Vol]Serum globulin measurement by calculation (mass/volume)[facility] HospitalGlucose [Mass/volume] in Serum or PlasmaOrdered By: Ramon Ruiz on 33-17-4198Thjalre [Mass/Vol]Glucose [Mass/volume] in Serum or Otnxiv04-492XxpcrydmzTrumbull Memorial HospitalComment on above:ADA recommended reference rangeRandom Glucose Reference Range is dependent on time and content of last meal. Glucose of more than 200 mg/dL in a nonstressed, ambulatory subject supports the diagnosisof Diabetes Mellitus.Hematocrit Auto (Bld) [Volume fraction]Ordered By: Ramon Ruiz on 48-88-9062Cmjcpeladb (Bld) [Volume fraction]Hematocrit [Volume Fraction] of Blood by Automated count34.0-46.4FPeoples HospitalHemoglobin A1c/Hemoglobin.total in BloodOrdered By: Ramon Ruiz on 51-52-0736AtR1i (Bld) [Mass fraction]Hemoglobin A1c percentage4.3-5.6FPeoples Hospital Comment on above:Increased risk for diabetes: 5.7 - 6.4diabetes: >6.4glycemic control for adults with diabetes: <7.0Hemoglobin [Mass/volume] in Blood Ordered By: Ramon Ruiz on 98-99-1855Ilelydnnkm (Bld) [Mass/Vol]Hemoglobin [Mass/volume] in Blood11.8-15.4FPeoples HospitalIron [Mass/volume] in Serum or PlasmaOrdered By: Ramon Ruiz on 12-97-8003Ocic [Mass/Vol]Iron [Mass/volume] in Serum or Xrfrxj41-811JgmiihucaTrumbull Memorial HospitalIron and TIBC Profileon 04-03-2024% Iron Clpabfxilv94.3 %Dcsccu35-16Mqa [facility] Physician GroupComment on above:Performed By: #### TSH3, CBC, CMP, A1C WTH eA, LIPID #### [facility] [address] [place] [address] USAIron [Mass/Vol]59 ug/uQXevlqy91-238Dua [facility] Physician GroupComment on above:Performed By: #### TSH3, CBC, CMP, A1C WTH eA, LIPID #### [facility] [address] [place] [address] USATotal Iron Binding Zhzecqip104 ug/lVAlqzvt894-423Jal [facility] Physician GroupComment on above:Performed By: #### TSH3, CBC, CMP, A1C WT eA, LIPID #### [facility] [address] [place] [address] USATransferrin [Mass/Vol]198 mg/oNMdz995-124Gtd [facility] Physician GroupComment on above:Performed By: #### TSH3, CBC, CMP, A1C WT eA, LIPID #### [facility] [address] [place] [id number] USALeukocytes [#/volume] corrected for nucleated erythrocytes in Blood by Automated counOrdered By: Ramon Ruiz on 52-04-9488JAX corrected for nucl RBC Auto (Bld) [#/Vol]Leukocytes [#/volume] corrected for nucleated erythrocytes in Blood by Automated coun3.8-11.6FPeoples Hospital Lymphocytes Auto (Bld) [#/Vol]Ordered By: Ramon Ruiz on 90-64-6271Fhnnxhtlojt (Bld) [#/Vol]Lymphocytes [#/volume] in Blood by Automated count1.00-4.8[facility] HospitalLymphocytes/100 WBC Auto (Bld)Ordered By: Ramon Ruiz on 86-73-0445Hwinygunnuk/100 WBC (Bld)Lymphocytes/100 leukocytes in Blood by Automated count.[facility] Auto (RBC) [Entitic mass] Ordered By: Ramon Ruiz on 22-96-6511MJB (RBC) [Entitic mass]MCH [Entitic mass] by Automated count24.7-34.3FKettering Memorial HospitalHC Auto (RBC) [Mass/Vol]Ordered By: Ramon Ruiz on 31-32-8852GEZJ (RBC) [Mass/Vol]MCHC [Mass/volume] by Automated count32.0-35.0[facility]V Auto (RBC) [Entitic vol]Ordered By: Ramon Ruiz on 62-41-4285ZNK (RBC) [Entitic vol]MCV [Entitic volume] by Automated -860YcrvroiqoTrumbull Memorial HospitalMonocytes Auto (Bld) [#/Vol]Ordered By: Ramon Ruiz on 87-50-8460Momxeiazn (Bld) [#/Vol]Automated blood monocyte count0.0-0.8[facility] HospitalMonocytes/100 WBC Auto (Bld)Ordered By: Ramon Ruiz on 04-03-2024 Monocytes/100 WBC (Bld)Automated monocyte %.[facility] Neutrophils Auto (Bld) [#/Vol]Ordered By: Ramon Ruiz on 90-18-2396Thvvnafipqa (Bld) [#/Vol]Neutrophils [#/volume] in Blood by Automated count1.8-7.7FPeoples HospitalNeutrophils/100 WBC Auto (Bld)Ordered By: Ramon Ruiz on 87-67-3929Rgbqojrysqy/100 WBC (Bld)Automated neutrophil %.[facility] HospitalNo Panel InformationOrdered By: Ramon Ruiz on 40-29-3780Yfhopnxfu GFR (CKD-EPI)> 60.0 mL/MinTrumbull Memorial HospitalPharmacy Creatinine Clearance (ChemN/[facility] Memorial HospitalNucleated erythrocytes [Presence] in Blood by Automated countOrdered By: Ramon Ruiz on 04-03-2024 Nucleated RBC Auto Ql (Bld)Nucleated erythrocytes [Presence] in Blood by Automated count0-0.5FPeoples HospitalPlatelet mean volume Auto (Bld) [Entitic vol]Ordered By: Ramon Ruiz on 23-25-8375Xilabhmj mean volume (Bld) [Entitic vol]Platelet mean volume [Entitic volume] in Blood by Automated count6.3-10.7FPeoples HospitalPlatelets Auto (Bld) [#/Vol] Ordered By: Ramon Ruiz on 39-32-1118Vzkxnetxf (Bld) [#/Vol]Platelets [#/volume] in Blood by Automated sagin666-919GtdhbjquhTrumbull Memorial HospitalPotassium [Moles/volume] in Serum or PlasmaOrdered By: Ramon Ruiz on 90-79-8895Misyeqcmt [Moles/Vol]Potassium [Moles/volume] in Serum or Plasma3.5-5.1FPeoples HospitalProtein [Mass/volume] in Serum or PlasmaOrdered By: Ramon Ruiz on 06-25-1671Opeinjm [Mass/Vol]Protein [Mass/volume] in Serum or Plasma6.4-8.9 [facility] HospitalRBC Auto (Bld) [#/Vol]Ordered By: Ramon Ruiz on 19-53-1757FRY (Bld) [#/Vol]Erythrocytes [#/volume] in Blood by Automated count 3.60-5.00[facility] Clinic Foundationerum or plasma albumin/globulin mass ratioOrdered By: Ramon Ruiz on 67-18-6938Svctabc/Globulin [Mass ratio]Serum or plasma albumin/globulin mass ratioCleveland Clinic Foundationerum or plasma anion gap determinationOrdered By: Ramon Ruiz on 53-10-2677Lwelz gap [Moles/Vol]Serum or plasma anion gap determination6.0-15.0[facility] Foundationerum or plasma iron binding capacity measurement (mass/volume) Ordered By: Ramon Ruiz on 96-73-8941Ufwx binding capacity [Mass/Vol]Iron binding capacity [Mass/volume] in Serum or Jicnkg338-902WjqvdxzkwCleveland Clinic Foundationerum or plasma iron saturation measurement (mass fraction)Ordered By: Ramon Ruiz on 50-11-5408Yffc saturation [Mass fraction]Iron saturation [Mass Fraction] in Serum or Aluxrd46-67ZvhvankeoCleveland Clinic Foundationodium [Moles/volume] in Serum or PlasmaOrdered By: Ramon Ruiz on 63-50-0833Xrnioh [Moles/Vol]Sodium [Moles/volume] in Serum or Ffzqcd442-415VolkfnlynTrumbull Memorial HospitalTransferrin [Mass/volume] in Serum or PlasmaOrdered By: Ramon Ruiz on 87-80-1155Eeaxzuicdug [Mass/Vol]Transferrin [Mass/volume] in Serum or Plasma Pdp506-098CfluwdufoTrumbull Memorial HospitalUrea nitrogen [Mass/volume] in Serum or PlasmaOrdered By: Ramon uRiz on 93-15-9987Artz nitrogen [Mass/Vol]Urea nitrogen [Mass/volume] in Serum or Plasma7-25[facility] WBC Auto (Bld) [#/Vol]Ordered By: Ramon Ruiz on 46-53-1883BQN (Bld) [#/Vol] Leukocytes [#/volume] in Blood by Automated count3.8-11.6FPeoples HospitalHCG ( test) IA.rapid Ql (U)Ordered By: Levon Pathak on 21-06-0620BNI ( test) Ql (U)NegativeTrumbull Memorial Hospital HCG,Urineon 85-31-0020Tssj HCG ( test) Ql (U)NegativeNoCaroMont Health Physician GroupComment on above:Result Comment: PERFORMED BY: [place] [address] PATHOLOGIST SHOOK SPLICER ROSANA CHAVIRA M.D.Performed By: #### UHCG #### [place] [address] USALon 02-56-5370NJzqcdwnb: [id number] Received: 02/18/24 Status: JENNIFER Del Castillo Num: [id number] Spec Type: Surgical Subm Dr: Tariq Andrew MD-NOMS Tissues: A Endometrium - Curettings (ENDOMETRIAL CURETTINGS) Procedures: HE/2, Gross/Micro L4 Age/ Patient Sex Location Account Attending Physician Elba Coffman 33/F [place] [id number] Tariq Andrew MD-NOM[facility] SPEC NUM: [id number] RECD: 02/18/24 STATUS: JENNIFER DEL CASTILLO NUM: [id number] EDWAR: 02/15/24- SUBM DR: MARNIE vIyNOMS ENTERED: 02/18/24-[address] [facility] [address]: SPEC TYPE: Surgical DEPT: S ENTERED BY: [id number] RECV BY: [id number] ORDERED: HE/2, Gross/Micro L4 ORDERED: HE/2, Gross/Micro L4 Pathological Diagnosis Endometrial curettings: -Multiple strips of slightly unevenly developed secretory endometrium of the at least mid phase type without hyperplasia or atypia identified Clinical Information AUB, menorrhagia with regular cycle, pelvic pain Gross Description The specimen is received in formalin with the patient's name and endometrial curettings and consists of multiple reynolds hemorrhagic soft tissue fragments measuring 1.5 x 1.0 x 0.3 cm in aggregate. Specimen is entirely submitted in cassette A1. Microscopic Description Microscopic examinations are performed supporting the above interpretation Specimen: [id number] Received: 02/18/24 Status: JENNIFER Del Castillo Num: [id number] Spec Type: Surgical Subm Dr: Tariq Andrew MD-NOMS Tissues: A Endometrium - Curettings (ENDOMETRIAL CURETTINGS) Procedures: /2, Gross/Micro L4 Patient: Elba Coffman [id number] (Continued) Specimen: [id number] Received: 02/18/24 (Continued) Signed (signature on file) Krishan Thakkar MD 02/19/24 1447 Specimen: [id number] Received: 02/18/24 Status: JENNIFER Del Castillo Num: [id number] Spec Type: Surgical Subm Dr: Tariq Andrew MD-CHANDNI Tissues: A Endometrium - Curettings (ENDOMETRIAL CURETTINGS) Procedures: HE/2, Gross/Micro L4 Patient: Elba Coffman [id number] (Continued) Specimen: [id number] Received: 02/18/24 (Continued) CPT Codes 30666 Specimen: [id number] Received: 02/18/24 Status: JENNIFER Del Castillo Num: [id number] Spec Type: Surgical Subm Dr: Tariq Andrew MD-NOMS Tissues: A Endometrium - Curettings (ENDOMETRIAL CURETTINGS) Procedures: HE/2, Gross/Gabrielle L4 Patient: Elba Coffman [id number] (Continued) Signed (signature on file) Krishan Thakkar MD 02/19/[address] [place] [address] Physician GroupIron [Mass/volume] in Serum or Plasma Ordered By: Ramon Ruiz on 13-65-8492Xboe [Mass/Vol]31 ug/jYMnl99-763ZofozfyavTrumbull Memorial HospitalComment on above:Performed By: #### FE and TIBC #### [facility] [address] [place] [address] USAIron and TIBC Profileon 01-24-2024% Iron Ygwjqawfik34.8 % Kjy68-47Lwf [facility] Physician GroupComment on above:Performed By: #### FE and TIBC #### [facility] [address] [place] [address] USATotal Iron Binding Wpdmuloa420 ug/gCHsgobe171-259Zln [facility] Physician GroupComment on above:Performed By: #### FE and TIBC #### [facility] [address] [place] [address] USAIron binding capacity [Mass/volume] in Serum or Plasma Ordered By: Ramon Ruiz on 19-24-9092Awvw binding capacity [Mass/Vol]288 ug/dL 255-450Tr[facility] HospitalIron saturation [Mass Fraction] in Serum or PlasmaOrdered By: Ramon Ruiz on 04-99-3688Jjwg saturation [Mass fraction]10.8 %Jkx68-91FdmoolobxTrumbull Memorial HospitalTransferrin [Mass/volume] in Serum or PlasmaOrdered By: Ramon Ruiz on 29-93-1846Jxdqjyzzopa [Mass/Vol]206 mg/dLNormal 203-362Tr[facility] HospitalComment on above:Result Comment: PERFORMED BY: [place] [address] PATHOLOGIST SHOOK SPLICER ROSANA CHAVIRA M.D.Performed By: #### FE and TIBC #### [facility] [address] [place] [address] USAA1C with Estimated Average Gluon 39-52-8876Fseisbf [Mass/Vol]120 mg/dLNoCaroMont Health Physician GroupComment on above:Result Comment: PERFORMED BY: [place] [address] PATHOLOGIST SHOOK SPLICER ROSANA CHAVIRA M.D.Performed By: #### TSH3, CBC, CMP, A1C WTH eA, LIPID #### [facility] [address] [place], [place] [id number] USAAlanine aminotransferase [Enzymatic activity/volume] in Serum or PlasmaOrdered By: Ramon Ruiz on 96-09-1298JDC [Catalytic activity/Vol] 19 U/LNormal7-52[facility] HospitalComment on above:Performed By: #### TSH3, CBC, CMP, A1C WTH eA, LIPID #### [facility] [address] [place] [id number] USAAlbumin [Mass/volume] in Serum or Plasma by Bromocresol green (BCG) dye binding methoOrdered By: Ramon Ruiz on 31-68-6950Zhyfong BCG dye [Mass/Vol]4.3 g/dL3.5-5.7Firelands Regional Medical CenterAlkaline phosphatase [Enzymatic activity/volume] in Serum or PlasmaOrdered By: Ramon Ruiz on 31-94-0754ASA [Catalytic activity/Vol]58 U/YPmxccm18-472HsqdoltywTrumbull Memorial HospitalComment on above:Performed By: #### TSH3, CBC, CMP, A1C WTH eA, LIPID #### [facility] [address] [place] [address] USAAspartate aminotransferase [Enzymatic activity/volume] in Serum or PlasmaOrdered By: Ramon Ruiz on 25-50-4637MTL [Catalytic activity/Vol] 22 U/BBdmbke64-31HwgmrglneTrumbull Memorial HospitalComment on above:Performed By: #### TSH3, CBC, CMP, A1C WTH eA, LIPID #### [facility] [address] [place] [address] USAAutomated basophil %Ordered By: Ramon Ruiz on 12-10-2023 Basophils/100 WBC (Bld)0.6 %Normal.[facility] HospitalComment on above:Performed By: #### TSH3, CBC, CMP, A1C WTH eA, LIPID #### [facility] [address] [place] [address] USAAutomated basophil countOrdered By: Ramon Ruiz on 78-64-2015Irinzzqnr (Bld) [#/Vol]0.0 10*3/uLNormal0.0-0.2FPeoples HospitalComment on above:Result Comment: PERFORMED BY: [place] [address] PATHOLOGIST SHOOK SPLICER ROSANA CHAVIRA M.D.Performed By: #### TSH3, CBC, CMP, A1C WTH eA, LIPID #### [facility] [address] [place] [address] USAAutomated blood monocyte countOrdered By: Ramon Ruiz on 89-91-8157Daqyoqnyg (Bld) [#/Vol]0.2 10*3/uLNormal0.0-0.8[facility] HospitalComment on above:Performed By: #### TSH3, CBC, CMP, A1C WTH eA, LIPID #### [facility] [address] [place] [address] USAAutomated eosinophil %Ordered By: Ramon Ruiz on 12-10-2023 Eosinophils/100 WBC (Bld)3.2 %Normal.[facility] HospitalComment on above:Performed By: #### TSH3, CBC, CMP, A1C WTH eA, LIPID #### [facility] [address] [place] [address] USAAutomated eosinophil countOrdered By: Ramon Ruiz on [id number] (Bld) [#/Vol]0.2 10*3/uLNormal0.0-0.45[facility] HospitalComment on above:Performed By: #### TSH3, CBC, CMP, A1C WTH eA, LIPID #### [facility] [address] [place] [address] USAAutomated monocyte %Ordered By: Ramon Ruiz on 12-10-2023 Monocytes/100 WBC (Bld)3.9 %Normal.[facility] HospitalComment on above:Performed By: #### TSH3, CBC, CMP, A1C WTH eA, LIPID #### [facility] [address] [place] [address] USAAutomated neutrophil %Ordered By: Ramon Ruiz on 12-10-2023 Neutrophils/100 WBC (Bld)58.8 %Normal.[facility] HospitalComment on above:Performed By: #### TSH3, CBC, CMP, A1C WTH eA, LIPID #### [facility] [address] [place] [address] USABilirubin.total [Mass/volume] in Serum or PlasmaOrdered By: Ramon Ruiz on 19-26-8720Tqdvaggzw [Mass/Vol]0.3 mg/dLNormal0.3-1.0[facility] HospitalComment on above:Performed By: #### TSH3, CBC, CMP, A1C WTH eA, LIPID #### [facility] [address] [place] [address] USACalcium [Mass/volume] in Serum or PlasmaOrdered By: Ramon Ruiz on 81-19-5014Qopyfed [Mass/Vol]9.0 mg/dLNormal8.6-10.3FPeoples HospitalComment on above:Performed By: #### TSH3, CBC, CMP, A1C WTH eA, LIPID #### [facility] [address] [place] [address] USACarbon dioxide, total [Moles/volume] in Serum or Plasma Ordered By: Ramon Ruiz on 21-46-2016IT3 [Moles/Vol]27.7 mmol/YIomvpb93.0-31.0 [facility] HospitalComment on above:Performed By: #### TSH3, CBC, CMP, A1C WT eA, LIPID #### [facility] [address] [place] [address] USAChloride [Moles/volume] in Serum or PlasmaOrdered By: Ramon Ruiz on 84-22-4222Mmwmflzr [Moles/Vol]104 mmol/YRgvcaz47-214BgtvpsmlxTrumbull Memorial HospitalComment on above:Performed By: #### TSH3, CBC, CMP, A1C WTH eA, LIPID #### [facility] [address] [place] [address] USACholesterol [Mass/volume] in Serum or PlasmaOrdered By: Ramon Ruiz on 75-61-6458Yfddzryoicc [Mass/Vol]179 mg/lSBcnayc821-008UxkzmadopTrumbull Memorial HospitalComment on above:Chol less than 200 mg/dl low riskChol 201-239 mg/dl borderline riskChol 240 mg/dl and greater high riskResult Comment: Chol less than 200 mg/dl low risk Chol 201-239 mg/dl borderline risk Chol 240 mg/dl and greater high riskPerformed By: #### TSH3, CBC, CMP, A1C WT eA, LIPID #### [facility] [address] [place] [address] USACholesterol in LDL Calc [Mass/Vol]Ordered By: Ramon Ruiz on 84-53-7119Juatodwbrbi in LDL [Mass/Vol]100 mg/dL0-100[facility] HospitalComment on above:LDL ATP III CLASSIFICATIONLDL less than 100 mg/dL OptimalLDL 100-129 mg/dL Near or above akdpmqnKAQ116-951 mg/dL Borderline highLDL 160-189 mg/dL HighLDL greater than 189 mg/dL Very highCholesterol in VLDL Calc [Mass/Vol]Ordered By: Ramon Ruiz on 75-51-6025Clembqkxfcy in VLDL [Mass/Vol]32 mg/dLTrumbull Memorial HospitalComplete Blood Count Auto Diffon 27-08-6389Pryx Corpuscular HGB Conc33.3 g/tWUehyht56.0-35.0The [facility] Physician GroupComment on above:Performed By: #### TSH3, CBC, CMP, A1C WTH eA, LIPID #### [facility] [address] [place] [address] USANRBC%0.1 /100{WBC}Normal0-0.5[facility] Comment on above:Performed By: #### TSH3, CBC, CMP, A1C WTH eA, LIPID #### [facility] [address] [place] [address] USAComprehensive Metabolic Panelon 83-82-9491Gxrmybz [Mass/Vol]4.3 g/dLNormal3.5-5.7[facility] Physician [facility] Of MississippiComment on above: Performed By: #### TSH3, CBC, CMP, A1C WTH eA, LIPID #### [facility] [address] [place] [address] USAGFR/1.73 sq M.predicted MDRD (S/P/Bld) [Vol rate/Area] mL/min/{1.73_m2}NormalThe [facility] Hospital Physician GroupComment on above:Performed By: #### TSH3, CBC, CMP, A1C WTH eA, LIPID #### [facility] [address] [place] [id number] USACreatinine [Mass/volume] in Serum or PlasmaOrdered By: Ramon Ruiz on 89-63-2784Zkkkjydkci [Mass/Vol]0.73 mg/dLNormal0.60-1.20[facility] HospitalComment on above:Performed By: #### TSH3, CBC, CMP, A1C WTH eA, LIPID #### [facility] [address] [place] [address] USAErythrocyte distribution width [Ratio] by Automated count Ordered By: Ramon Ruiz on 80-74-3596Pkwwtnoneds distribution width (RBC) [Ratio] 15.7 %High11.9-15.3FPeoples HospitalComment on above:Performed By: #### TSH3, CBC, CMP, A1C WTH eA, LIPID #### [facility] [address] [place] [address] USAErythrocytes [#/volume] in Blood by Automated countOrdered By: Ramon Ruiz on 72-21-8150HNZ (Bld) [#/Vol]4.22 10*6/uLNormal3.60-5.00 [facility] HospitalComment on above:Performed By: #### TSH3, CBC, CMP, A1C WTH eA, LIPID #### [facility] [address] [place] [address] USAGlucose [Mass/volume] in Serum or PlasmaOrdered By: Ramon Ruiz on 16-76-0227Zqsfayd [Mass/Vol]122 mg/cLCruy21-957QomgcsphjTrumbull Memorial HospitalComment on above:ADA recommended reference rangeRandom Glucose Reference Range is dependent on time and content of last meal. Glucose of more than 200 mg/dL in a nonstressed, ambulatory subject supports the diagnosisof Diabetes Mellitus.Result Comment: Random Glucose Reference Range is dependent on time and content of last meal. Glucose of more than 200 mg/dL in a nonstressed, ambulatory subject supports the diagnosis of Diabetes Mellitus. ADA recommended reference rangePerformed By: #### TSH3, CBC, CMP, A1C WTH eA, LIPID #### [facility] [address] [place] [address] USAGlucose mean value [Mass/volume] in Blood Estimated from glycated hemoglobinOrdered By: Ramon Ruiz on 56-97-4611Qcwkdqm glucose Estimated from glycated hemoglobin (Bld) [Mass/Vol]120 mg/dLTrumbull Memorial HospitalHematocrit [Volume Fraction] of Blood by Automated countOrdered By: Ramon Ruiz on 22-03-0968Kjwvorrwbv (Bld) [Volume fraction]33.4 %Low34.0-46.4FPeoples HospitalComment on above:Performed By: #### TSH3, CBC, CMP, A1C WTH eA, LIPID #### [facility] [address] [place] [address] USAHemoglobin A1c percentageOrdered By: Ramon Ruiz on 61-81-8945SsN4x (Bld) [Mass fraction]5.8 %High4.3-5.6FPeoples HospitalComment on above:Increased risk for diabetes: 5.7 - 6.4diabetes: >6.4glycemic control for adults with diabetes: <7.0Result Comment: Increased risk for diabetes: 5.7 - 6.4 diabetes: >6.4 glycemic control for adults with diabetes: <7.0Performed By: #### TSH3, CBC, CMP, A1C WTH eA, LIPID #### [place] [address] USAHemoglobin [Mass/volume] in BloodOrdered By: Ramon Ruiz on 18-11-8142Orgsvanfyb (Bld) [Mass/Vol]11.1 g/dLLow11.8-15.4FPeoples HospitalComment on above:Performed By: #### TSH3, CBC, CMP, A1C WTH eA, LIPID #### [place] [id number] USALeukocytes [#/volume] corrected for nucleated erythrocytes in Blood by Automated counOrdered By: Ramon Ruiz on 67-00-6150RGK corrected for nucl RBC Auto (Bld) [#/Vol]6.0 10*3/uL3.8-11.6FPeoples Hospital Leukocytes [#/volume] in Blood by Automated countOrdered By: Ramon Ruiz on 89-96-1478PTS (Bld) [#/Vol]6.0 10*3/uLNormal3.8-11.6FPeoples HospitalComment on above:Performed By: #### TSH3, CBC, CMP, A1C WTH eA, LIPID #### [place] [address] USALipid Panelon 82-69-8152JPU Cholesterol,Gyznvcimyw410 mg/dLNormal0-100[facility]ician [facility] MississippiComment on above:Result Comment: LDL ATP III CLASSIFICATION LDL less than 100 mg/dL Optimal LDL 100-129 mg/dL Near or above optimal LDL 130-159 mg/dL Borderline high LDL 160-189 mg/dL High LDL greater than 189 mg/dL Very highPerformed By: #### TSH3, CBC, CMP, A1C WTH eA, LIPID #### [facility] [address] [place] [id number] USATriglyceride w/Ukkfki240 mg/dLHigh0-149The [facility] Physician GroupComment on above:Result Comment: TRIG ATP III CLASSIFICATION TRIG less than 150 mg/dL Normal TRIG 150-199 mg/dL Borderline high TRIG 200-500 mg/dL High TRIG greater than 500 mg/dL Very high Standard traceable to the Center for Disease Conrtrol and Prevention (CDC) test method.Performed By: #### TSH3, CBC, CMP, A1C WTH eA, LIPID #### [facility] [address] [place] [id number] USAVLDL OOWAVHVSYNQ15 mg/dLNormalThe [facility] Physician [facility] MississippiComment on above:Performed By: #### TSH3, CBC, CMP, A1C WTH eA, LIPID #### [facility] [address] [place], [place] [id number] USALymphocytes [#/volume] in Blood by Automated countOrdered By: Ramon Ruiz on 52-37-0219Igxprbckpmx (Bld) [#/Vol]2.0 10*3/uLNormal1.00-4.8 [facility] HospitalComment on above:Performed By: #### TSH3, CBC, CMP, A1C WTH eA, LIPID #### [facility] [address] [place] [address] USALymphocytes/100 leukocytes in Blood by Automated count Ordered By: Ramon Ruiz on 07-44-0655Mubiprjnnfh/100 WBC (Bld)33.5 %Normal. [facility] HospitalComment on above:Performed By: #### TSH3, CBC, CMP, A1C WTH eA, LIPID #### [facility] [address] [place] [id number] [facility] [Entitic mass] by Automated countOrdered By: Ramon Ruiz on 24-75-7607NKS (RBC) [Entitic mass]26.3 hiZiwqov41.7-34.3FPeoples HospitalComment on above:Performed By: #### TSH3, CBC, CMP, A1C WTH eA, LIPID #### [facility] [address] [place] [id number] [facility] TULSAHC Auto (RBC) [Mass/Vol]Ordered By: Ramon Ruiz on 15-62-6300IIMW (RBC) [Mass/Vol]33.3 g/dL32.0-35.0[facility] HospitalMCV [Entitic volume] by Automated countOrdered By: Ramon Ruiz on 46-63-5358UQH (RBC) [Entitic vol]79.0 aUIml62-752LheobibnpTrumbull Memorial HospitalComment on above:Performed By: #### TSH3, CBC, CMP, A1C WTH eA, LIPID #### [facility] [address] [place], [place] [id number] USANeutrophils [#/volume] in Blood by Automated countOrdered By: Ramon Ruiz on 50-96-2668Thqpdgbkdad (Bld) [#/Vol]3.5 10*3/uLNormal1.8-7.7 [facility] HospitalComment on above:Performed By: #### TSH3, CBC, CMP, A1C WT eA, LIPID #### [facility] [address] [place], [place] [id number] USANo Panel InformationOrdered By: Ramon Ruiz on 12-10-2023 Estimated GFR (CKD-EPI)> 60.0 mL/MinTrumbull Memorial HospitalPharmacy Creatinine Clearance (ChemN/[facility] Memorial HospitalNucleated erythrocytes [Presence] in Blood by Automated countOrdered By: Ramon Ruiz on 93-35-2044Jfudemijw RBC Auto Ql (Bld)0.1 /100{WBC}0-0.5FPeoples HospitalPlatelet mean volume [Entitic volume] in Blood by Automated count Ordered By: Ramon Ruiz on 00-75-6795Tkikmufd mean volume (Bld) [Entitic vol]8.1 fLNormal6.3-10.7FPeoples HospitalComment on above:Performed By: #### TSH3, CBC, CMP, A1C WTH eA, LIPID #### [facility] [address] [place] [address] USAPlatelets [#/volume] in Blood by Automated countOrdered By: Ramon Ruiz on 45-88-9492Atfcjkpvg (Bld) [#/Vol]243 10*3/eOTyujfl982-113 [facility] HospitalComment on above:Performed By: #### TSH3, CBC, CMP, A1C WTH eA, LIPID #### [facility] [address] [place] [address] USAPotassium [Moles/volume] in Serum or PlasmaOrdered By: Ramon Ruiz on 77-92-7685Ljpwvstgu [Moles/Vol]3.9 mmol/LNormal3.5-5.1FPeoples HospitalComment on above:Performed By: #### TSH3, CBC, CMP, A1C WTH eA, LIPID #### [facility] [address] [place] [address] USAProtein [Mass/volume] in Serum or PlasmaOrdered By: Ramon Ruiz on 95-61-5566Wuhygoc [Mass/Vol]6.9 g/dLNormal6.4-8.9[facility] HospitalComment on above:Performed By: #### TSH3, CBC, CMP, A1C WTH eA, LIPID #### [facility] [address] [place] [address] USASerum globulin measurement by calculation (mass/volume) Ordered By: Ramon Ruiz on 23-33-2774Kjxvlkak (S) [Mass/Vol]2.6 g/dLNormal [facility] HospitalComment on above:Performed By: #### TSH3, CBC, CMP, A1C WTH eA, LIPID #### [facility] [address] [place] [address] USASerum or plasma albumin/globulin mass ratioOrdered By: Ramon Ruiz on 30-17-2940Tnrinwm/Globulin [Mass ratio]1.7 {ratio}NormalTrumbull Memorial HospitalComment on above:Performed By: #### TSH3, CBC, CMP, A1C WTH eA, LIPID #### [facility] [address] [place] [address] USASerum or plasma anion gap determinationOrdered By: Ramon Ruiz on 76-29-7806Vblhf gap [Moles/Vol]11.2 mmol/LNormal6.0-15.0[facility] HospitalComment on above:Performed By: #### TSH3, CBC, CMP, A1C WTH eA, LIPID #### [facility] [address] [place] [address] USASerum or plasma high density lipoprotein (HDL) cholesterol measurementOrdered By: Ramon Ruiz on 39-26-4610Orpkakfhifn in HDL [Mass/Vol]47 mg/dKUnamof49-53MaydbxclpTrumbull Memorial HospitalComment on above:HDL CHOL ATP- III CLASSIFICATION Cardiovascular RiskHDL > or equal to 60 mg/dL LOWHDL < 40 mg/dL HIGHResult Comment: HDL CHOL ATP-III CLASSIFICATION Cardiovascular Risk HDL > or equal to 60 mg/dL LOW HDL < 40 mg/dL HIGHPerformed By: #### TSH3, CBC, CMP, A1C WTH eA, LIPID #### [facility] [address] [place] [address] USASerum or plasma total cholesterol/high density lipoprotein (HDL) cholesterol mass ratOrdered By: Ramon Ruiz on 12-10-2023 Cholesterol.total/Cholesterol in HDL [Mass ratio]3.8 {ratio}Normal<5.0[facility] HospitalComment on above:Performed By: #### TSH3, CBC, CMP, A1C WTH eA, LIPID #### [facility] [address] [place] [address] USASodium [Moles/volume] in Serum or PlasmaOrdered By: Ramon Ruiz on 46-14-6942Mabcqd [Moles/Vol]139 mmol/PNaywer030-574GpaglqvhzTrumbull Memorial HospitalComment on above:Performed By: #### TSH3, CBC, CMP, A1C WTH eA, LIPID #### [facility] [address] [place] [address] USAThyrotropin [Units/volume] in Serum or PlasmaOrdered By: Ramon Ruiz on 69-93-4475BKJ Qn1.14 m[IU]/LNormal0.45-5.33[facility] HospitalComment on above:Result Comment: PERFORMED BY: [place] [address] PATHOLOGIST [employer] ROSANA CHAVIRA M.D.Performed By: #### TSH3, CBC, CMP, A1C WT eA, LIPID #### [facility] [address] [place] [address] USATriglyceride [Mass/volume] in Serum or PlasmaOrdered By: Ramon Ruiz on 09-95-4742Voimlyxhfcya [Mass/Vol]162 mg/dLHigh0-149[facility] HospitalComment on above:TRIG ATP III CLASSIFICATIONTRIG less than 150 mg/dL NormalTRIG 150-199 mg/dL Borderline highTRIG 200-500 mg/dL High TRIG greater than 500 mg/dL Very highStandard traceable to the Center for Disease Conrtrol and Prevention (CDC) test method.Urea nitrogen [Mass/volume] in Serum or PlasmaOrdered By: Ramon Ruiz on 89-79-2597Jbwf nitrogen [Mass/Vol]15 mg/dLNormal7-25[facility] HospitalComment on above:Performed By: #### TSH3, CBC, CMP, A1C [facility] eA, LIPID #### [facility] [address] [place] [address] USANo Panel InformationOrdered By: Jocy Rao on 07-23-2023 Quick Strep (POC)[facility] HospitalNo Panel InformationOrdered By: Nicole Womack on 32-68-9530Wbzrx Strep (POC)[facility] HospitalBasophils Auto (Bld) [#/Vol]Ordered By: Jeremy Hernandez on 08-29-2022 Basophils (Bld) [#/Vol]0.0 10*3/uL0.0-0.2FPeoples Hospital Basophils/100 WBC Auto (Bld)Ordered By: Jeremy Hernandez on 02-94-7263Dxjquvhby/100 WBC (Bld)0.6 %.[facility] HospitalCalcium [Mass/volume] in Serum or PlasmaOrdered By: Jeremy Hernandez on 67-46-5409Czvzqqh [Mass/Vol]8.6 mg/dL 8.6-10.3FPeoples HospitalCarbon dioxide, total [Moles/volume] in Serum or PlasmaOrdered By: Jeremy Hernandez on 74-21-3803VY9 [Moles/Vol]26.9 mmol/L21.0-31.0[facility] HospitalChloride [Moles/volume] in Serum or PlasmaOrdered By: Jeremy Hernandez on 12-99-5862Zkcwhyfz [Moles/Vol]104 mmol/L 98-107[facility] HospitalCreatinine [Mass/volume] in Serum or PlasmaOrdered By: Jeremy Hernandez on 62-92-1691Olcxebcspn [Mass/Vol]0.70 mg/dL 0.60-1.20[facility] HospitalEosinophils Auto (Bld) [#/Vol]Ordered By: Jeremy Hernandez on 82-63-4578Uizxxritsco (Bld) [#/Vol]0.3 10*3/uL0.0-0.45 [facility] HospitalEosinophils/100 WBC Auto (Bld)Ordered By: Jeremy Hernandez on 89-36-8490Fxtyfqdymfk/100 WBC (Bld)3.6 %.[facility] HospitalErythrocyte distribution width Auto (RBC) [Ratio]Ordered By: Jeremy Hernandez on 10-87-7225Nsylixqzpsi distribution width (RBC) [Ratio]13.8 % 11.9-15.3FPeoples HospitalGlucose [Mass/volume] in Serum or PlasmaOrdered By: Jeremy Hernandez on 05-75-9891Tveeujx [Mass/Vol]60 mg/uI46-017 [facility] HospitalComment on above:ADA recommended reference rangeRandom Glucose Reference Range is dependent on time and content of last meal. Glucose of more than 200 mg/dL in a nonstressed, ambulatory subject supports the diagnosisof Diabetes Mellitus.Hematocrit Auto (Bld) [Volume fraction]Ordered By: Jeremy Hernandez on 18-17-0701Jasbxfxpny (Bld) [Volume fraction]38.7 %34.0-46.4FPeoples HospitalHemoglobin [Mass/volume] in BloodOrdered By: Jeremy Hernandez on 18-76-0853Kjomruwuuu (Bld) [Mass/Vol]12.8 g/dL11.8-15.4FPeoples HospitalLeukocytes [#/volume] corrected for nucleated erythrocytes in Blood by Automated coun Ordered By: Jeremy Hernandez on 10-03-0860FGS corrected for nucl RBC Auto (Bld) [#/Vol]7.2 10*3/uL3.8-11.6FPeoples HospitalLymphocytes Auto (Bld) [#/Vol]Ordered By: Jeremy Hernandez on 59-97-2089Owtrofsyuce (Bld) [#/Vol]2.0 10*3/uL1.00-4.8[facility] HospitalLymphocytes/100 WBC Auto (Bld) Ordered By: Jeremy Hernandez on 08-69-0710Xbgcakqitvk/100 WBC (Bld)27.2 %.[facility] Auto (RBC) [Entitic mass]Ordered By: Jeremy Hernandez on 73-47-5381XOO (RBC) [Entitic mass]27.3 pg24.7-34.3FPeoples HospitalMCHC Auto (RBC) [Mass/Vol]Ordered By: Jeremy Hernandez on 77-60-7749WIDT (RBC) [Mass/Vol]33.1 g/dL32.0-35.0[facility] HospitalMCV Auto (RBC) [Entitic vol]Ordered By: Jeremy Hernandez on 04-25-8335BSX (RBC) [Entitic vol]82.4 nM37-273WdwguvuopTrumbull Memorial HospitalMonocytes Auto (Bld) [#/Vol] Ordered By: Jeremy Hernandez on 89-94-4801Qagpidatq (Bld) [#/Vol]0.5 10*3/uL0.0-0.8 [facility] HospitalMonocytes/100 WBC Auto (Bld)Ordered By: Jeremy Hernandez on 47-69-5211Vppnswbdf/100 WBC (Bld)6.5 %.[facility] HospitalNeutrophils Auto (Bld) [#/Vol]Ordered By: Jeremy Hernandez on 08-29-2022 Neutrophils (Bld) [#/Vol]4.4 10*3/uL1.8-7.7FPeoples Hospital Neutrophils/100 WBC Auto (Bld)Ordered By: Jeremy Hernandez on 08-29-2022 Neutrophils/100 WBC (Bld)62.1 %.[facility] HospitalNo Panel InformationOrdered By: Jeremy Hernandez on 75-10-7786Pmdbxsauq GFR (CKD-EPI)> 60.0 mL/MinTrumbull Memorial HospitalPharmacy Creatinine Clearance (ChemN/A [facility] HospitalNucleated erythrocytes [Presence] in Blood by Automated countOrdered By: Jeremy Hernandez on 74-89-4262Cumdlnpyy RBC Auto Ql (Bld)0.1 /100{WBC}0-0.5FPeoples HospitalPlatelet mean volume Auto (Bld) [Entitic vol]Ordered By: Jeremy Hernandez on 48-18-6022Rcoqwhvp mean volume (Bld) [Entitic vol]7.5 fL6.3-10.7FPeoples Hospital Platelets Auto (Bld) [#/Vol]Ordered By: Jeremy Hernandez on 30-67-7348Lgcdewqwy (Bld) [#/Vol]272 10*3/wZ359-912EcedhxpozTrumbull Memorial HospitalPotassium [Moles/volume] in Serum or PlasmaOrdered By: Jeremy Hernandez on 08-29-2022 Potassium [Moles/Vol]3.7 mmol/L3.5-5.1FPeoples HospitalRBC Auto (Bld) [#/Vol]Ordered By: Jeremy Hernandez on 75-17-7709USQ (Bld) [#/Vol]4.70 10*6/uL3.60-5.00[facility] Foundationerum or plasma anion gap determinationOrdered By: Jeremy Hernandez on 52-11-4188Etejm gap [Moles/Vol]10.8 mmol/L6.0-15.0[facility] Foundationodium [Moles/volume] in Serum or PlasmaOrdered By: Jeremy Hernandez on 92-80-0624Nmhswz [Moles/Vol]138 mmol/L 136-145[facility] HospitalUrea nitrogen [Mass/volume] in Serum or PlasmaOrdered By: Jeremy Hernandez on 34-65-1124Pyfl nitrogen [Mass/Vol]14 mg/dL 7-25[facility] HospitalWBC Auto (Bld) [#/Vol]Ordered By: Jeremy Hernandez on 71-50-1512YQB (Bld) [#/Vol]7.2 10*3/uL3.8-11.6FPeoples HospitalBasophils Auto (Bld) [#/Vol]Ordered By: Ramon Ruiz on 06-07-2022 Basophils (Bld) [#/Vol]0.0 10*3/uL0.0-0.2FPeoples Hospital Basophils/100 WBC Auto (Bld)Ordered By: Ramon Ruiz on 09-77-7930Zdpxmqidu/100 WBC (Bld)0.2 %.[facility] HospitalBody fluid albumin measurement (mass/volume)Ordered By: Ramon Ruiz on 72-10-0309Ofylioi (Body fld) [Mass/Vol] 4.3 g/dL3.2-5.5FPeoples HospitalCholesterol [Mass/volume] in Serum or PlasmaOrdered By: Ramon Ruiz on 53-19-8319Pnwvqoybndo [Mass/Vol]198 mg/nF377-708AcldbcygxTrumbull Memorial HospitalComment on above:Chol less than 200 mg/dl low riskChol 201-239 mg/dl borderline riskChol 240 mg/dl and greater high riskCholesterol in LDL Calc [Mass/Vol]Ordered By: Ramon Ruiz on 06-07-2022 Cholesterol in LDL [Mass/Vol]137 mg/dL0-100[facility] Comment on above:LDL ATP III CLASSIFICATIONLDL less than 100 mg/dL OptimalLDL 100-129 mg/dL Near or above fewzjelETZ345-736 mg/dL Borderline highLDL 160-189 mg/dL HighLDL greater than 189 mg/dL Very highCholesterol in VLDL Calc [Mass/Vol]Ordered By: Ramon Ruiz on 69-95-0348Xhwkwsqahlb in VLDL [Mass/Vol]16 mg/dLTrumbull Memorial HospitalCreatinine and Glomerular filtration rate.predicted panel (S/P/Bld)Ordered By: Ramon Ruiz on 40-51-1745Qlxkyoqssl [Mass/Vol]0.71 mg/dL0.44-1.03[facility] HospitalEosinophils Auto (Bld) [#/Vol]Ordered By: Ramon Ruiz on 12-86-2789Xjsytprshkj (Bld) [#/Vol]0.0 10*3/uL0.0-0.45[facility] HospitalEosinophils/100 WBC Auto (Bld) Ordered By: Ramon Ruiz on 95-86-0122Okexazdfvqy/100 WBC (Bld)0.3 %.[facility] HospitalErythrocyte distribution width Auto (RBC) [Ratio]Ordered By: Ramon Ruiz on 43-08-2229Wvqqmgrvqyv distribution width (RBC) [Ratio]14.0 % 11.9-15.3FPeoples HospitalEstimated glomerular filtration rate (GFR) non- AmericanOrdered By: Ramon Ruiz on 38-32-6817GXP/1.73 sq M.predicted among non-blacks MDRD (S/P/Bld) [Vol rate/Area]> 60 mL/MinTrumbull Memorial HospitalGlobulin Calc (S) [Mass/Vol]Ordered By: Ramon Ruiz on 36-63-2499Leucndqy (S) [Mass/Vol]3.6 g/dLTrumbull Memorial Hospital Glucose mean value [Mass/volume] in Blood Estimated from glycated hemoglobin Ordered By: Ramon Ruiz on 40-94-1652Zyrwylv glucose Estimated from glycated hemoglobin (Bld) [Mass/Vol]117 mg/dLTrumbull Memorial HospitalHematocrit Auto (Bld) [Volume fraction]Ordered By: Ramon Ruiz on 31-34-0202Tifusqgmac (Bld) [Volume fraction]39.0 %34.0-46.4FPeoples HospitalHemoglobin A1c percentageOrdered By: Ramon Ruiz on 48-96-1295BjB5s (Bld) [Mass fraction]5.7 % 4.3-5.6FPeoples HospitalComment on above:Increased risk for diabetes: 5.7 - 6.4diabetes: >6.4glycemic control for adults with diabetes: &l t;7.0Hemoglobin [Mass/volume] in BloodOrdered By: Ramon Ruiz on 06-07-2022 Hemoglobin (Bld) [Mass/Vol]13.1 g/dL11.8-15.4FPeoples Hospital Leukocytes [#/volume] corrected for nucleated erythrocytes in Blood by Automated counOrdered By: Ramon Ruiz on 05-04-8466NBK corrected for nucl RBC Auto (Bld) [#/Vol]10.9 10*3/uL3.8-11.6FPeoples HospitalLymphocytes Auto (Bld) [#/Vol]Ordered By: Ramon Ruiz on 20-64-6258Bqotocnwywb (Bld) [#/Vol]1.9 10*3/uL1.00-4.8[facility] HospitalLymphocytes/100 WBC Auto (Bld) Ordered By: Ramon Ruiz on 90-71-1531Vtswcbmkirz/100 WBC (Bld)17.2 %.[facility] Auto (RBC) [Entitic mass]Ordered By: Ramon Ruiz on 97-55-6404BQW (RBC) [Entitic mass]28.0 pg24.7-34.3FPeoples HospitalMCHC Auto (RBC) [Mass/Vol]Ordered By: Ramon Ruiz on 39-24-4279MXKS (RBC) [Mass/Vol]33.6 g/dL32.0-35.0[facility] HospitalMCV Auto (RBC) [Entitic vol]Ordered By: Ramon Ruiz on 10-58-8228IBU (RBC) [Entitic vol]83.5 fL 80-100[facility] HospitalMonocytes Auto (Bld) [#/Vol]Ordered By: Ramon Ruiz on 56-95-2729Mamlxcnui (Bld) [#/Vol]0.5 10*3/uL0.0-0.8[facility] HospitalMonocytes/100 WBC Auto (Bld)Ordered By: Ramon Ruiz on 73-91-2372Zgdgcjogh/100 WBC (Bld)4.9 %.[facility] Neutrophils Auto (Bld) [#/Vol]Ordered By: Ramon Ruiz on 53-46-7796Ftjkmayuxve (Bld) [#/Vol]8.4 10*3/uL1.8-7.7FPeoples HospitalNeutrophils/100 WBC Auto (Bld)Ordered By: Ramon Ruiz on 23-86-8242Tujsczfoacx/100 WBC (Bld)77.4 %.[facility] HospitalNo Panel InformationOrdered By: Ramon Ruiz on 52-37-4183Qicjuwqln GFR ()> 60 mL/MinTrumbull Memorial HospitalComment on above:GFR estimated reference range: According to KDOQI guidelines, <60 ml/min/1.73m2 is sufficient todiagnose a patient with chronic kidney disease.Pharmacy Creatinine Clearance (ChemN/AFPeoples HospitalNucleated erythrocytes [Presence] in Blood by Automated countOrdered By: Ramon Ruiz on 07-21-7819Pnpblleqh RBC Auto Ql (Bld)0.1 /100{WBC}0-0.5FPeoples HospitalPlatelet mean volume Auto (Bld) [Entitic vol]Ordered By: Ramon Ruiz on 25-59-6357Pptjagqs mean volume (Bld) [Entitic vol]8.0 fL6.3-10.7 [facility] HospitalPlatelets Auto (Bld) [#/Vol]Ordered By: Ramon Ruiz on 21-62-5651Czmrsqocn (Bld) [#/Vol]332 10*3/lW541-017XwgyrqjdnTrumbull Memorial HospitalProtein [Mass/volume] in Serum or PlasmaOrdered By: Ramon Ruiz on 30-62-2452Ltltlrh [Mass/Vol]7.9 g/dL6.1-7.9[facility] HospitalRBC Auto (Bld) [#/Vol]Ordered By: Ramon Ruiz on 75-56-5336MVP (Bld) [#/Vol]4.67 10*6/uL3.60-5.00[facility] Foundationerum or plasma alanine aminotransferase measurement without P-5'-P (enzymatic activiOrdered By: Ramon Ruiz on 42-21-0295KVW No additional P-5'-P [Catalytic activity/Vol]57 U/L10-60 [facility] Foundationerum or plasma albumin/globulin mass ratio Ordered By: Ramon Ruiz on 99-69-5438Bziargw/Globulin [Mass ratio]1.2 {ratio} [facility] Foundationerum or plasma alkaline phosphatase measurement (enzymatic activity/volume)Ordered By: Ramon Ruiz on 42-44-1787ROY [Catalytic activity/Vol]72 U/H11-13ZbgsjlvdzCleveland Clinic Foundationerum or plasma anion gap determinationOrdered By: Ramon Ruiz on 22-18-2946Qwklc gap [Moles/Vol]11.5 mmol/L6.0-15.0[facility] Foundationerum or plasma aspartate aminotransferase measurement (enzymatic activity/volume)Ordered By: Ramon Ruiz on 21-54-0512HTW [Catalytic activity/Vol]26 U/I39-08MvwjogaazCleveland Clinic Foundationerum or plasma calcium measurement (mass/volume)Ordered By: Ramon Ruiz on 77-23-0494Pksderx [Mass/Vol]9.2 mg/dL8.2-10.2FCommunity Memorial Hospitalerum or plasma chloride measurement (moles/volume) Ordered By: Ramon Ruiz on 17-66-5195Eaeqthhn [Moles/Vol]104 mmol/L95-114 [facility] Foundationerum or plasma glucose measurement (mass/volume)Ordered By: Ramon Ruiz on 11-98-1683Fewyngy [Mass/Vol]93 mg/dL 70-100[facility] HospitalComment on above:ADA recommended reference rangeRandom Glucose Reference Range is dependent on time and content of last meal. Glucose of more than 200 mg/dL in a nonstressed, ambulatory subject supports the diagnosisof Diabetes Mellitus.Serum or plasma high density lipoprotein (HDL) cholesterol measurementOrdered By: Ramon Ruiz on 06-07-2022 Cholesterol in HDL [Mass/Vol]45 mg/wO12-04UdpryscvxTrumbull Memorial Hospital Comment on above:HDL CHOL ATP-III CLASSIFICATION Cardiovascular RiskHDL > or equal to 60 mg/dL LOWHDL < 40 mg/dL HIGHSerum or plasma potassium measurement (moles/volume)Ordered By: Ramon Ruiz on 37-29-6896Yzoqhrylc [Moles/Vol]3.4 mmol/L3.5-5.1FCommunity Memorial Hospitalerum or plasma sodium measurement (moles/volume)Ordered By: Ramon Ruiz on 67-59-0044Qbosnr [Moles/Vol]137 mmol/L 136-146[facility] Foundationerum or plasma total bilirubin measurement (mass/volume)Ordered By: Ramon Ruiz on 04-75-4167Estlcoanw [Mass/Vol]0.4 mg/dL0.3-1.2FCommunity Memorial Hospitalerum or plasma total carbon dioxide measurement (moles/volume)Ordered By: Ramon Ruiz on 06-07-2022 CO2 [Moles/Vol]24.9 mmol/L22.0-30.0[facility] Foundationerum or plasma total cholesterol/high density lipoprotein (HDL) cholesterol mass rat Ordered By: Ramon Ruiz on 04-88-8544Xqclvfpvufx.total/Cholesterol in HDL [Mass ratio]4.4 {ratio}<5.0[facility] Foundationerum or plasma urea nitrogen measurement (mass/volume)Ordered By: Ramon Ruiz on 82-26-3749Zull nitrogen [Mass/Vol]12 mg/dL9-23[facility] HospitalTS DL <= 0.005 mIU/L QnOrdered By: Ramon Ruiz on 48-38-3414CSW Qn0.64 m[IU]/L0.45-5.33[facility] HospitalTriglyceride [Mass/volume] in Serum or PlasmaOrdered By: Ramon Ruiz on 84-42-6127Rbwhkejbhsgt [Mass/Vol]81 mg/cC98-263IxbqwgpcmTrumbull Memorial HospitalComment on above:TRIG ATP III CLASSIFICATIONTRIG less than 150 mg/dL NormalTRIG 150-199 mg/dL Borderline highTRIG 200-500 mg/dL High TRIG greater than 500 mg/dL Very highStandard traceable to the Center for Disease Co nrtrol and Prevention (CDC) test method.WBC Auto (Bld) [#/Vol]Ordered By: Ramon Ruiz on 67-28-6663ZNG (Bld) [#/Vol]10.9 10*3/uL3.8-11.6FPeoples HospitalCOVID + FLU Quick Testingon 28-68-0362CFMC-CoV-2 (COVID-19) RNA CHRISTOPHER+probe Ql (Unsp spec)NegativeSapho Other COVID + FLU Quick TestingNegativeTurkey [employer]eva Other Quick Strepon 06-05-2022S. pyogenes Org specific cx Ql (Throat)NegativeSapho Other Quhdf StrepNoSapho Other HOSPon 45-94-1123JZCMEcyfgju Office Visit (OBGYAV) ELBA COFFMAN ([id number]) 1990 [facility] Time Provider Eqdnqawwhp45/17/17 1:45 PM DAMIAN NIETO OBSHAUNA During your visit today, we recorded the following information about you: Weight Height 76.4 kg 1.524 Ana Cristina Nieto MD 02/13/2017 2:59 PM SignedUltrasound reveals a twingestation in utero. growth is lagging in eachtwin. No effusions or dysrhythmias are identified. The amniotic fluidis within normal limits.?34 week 4 day twin intrauterine gestationA Breech/ B CephalicConcordant growthDichorionic DiamnioticAppropriate amniotic fluid volume in each sacIntrauterine growth restrictionBiophysical profile 8 out of 8 in each twinReassuring umbilical artery Doppler assessment in each twinFetal bladder in twin B appears normal today?The patient was counseledas to the sonographic findings.?Recommend weekly biophysical profiles or twice weekly nonstress tests. Dailyfetal kick counts encouraged. Recommend delivery at 37 weeks as long asnonstress tests remain reassuring?The patient presents for requested ultrasound. Full report available in theANDquot;ImagingANDquot; tab in Epic?Pamela Wolfe Provider: DAMIAN NIETO [[id number]]Allergies As of Date: 02/13/2017(Not on File)Date Reviewed: 11/21/2016Reviewed by: Memo Arriaza - Fully AssessedPrimary Visit Diagnosis:Dichorionic diamniotic twin in third trimester [O30.043] Other Visit Diagnoses:Poor growth complicating , antepartum, second trimester, other fetus [O36.5929] 34 weeks gestation of [Z3A.34]Prescriptions as of 02/13/2017 Sig: FOLIC ACID 1 MG TABLET Take 3 tablets by mouth once * PLUS DHA 27 MG IRON-* take 1 tablet and 1 capsule b* CETIRIZINE 10 MG TABLET Take 1 tablet by mouth once d*Medication notes this encounter FOLIC ACID 1 MG TABLET >> oCco Webb MA 02/13/2017 1:59 PM >> COCO WEBB Feb 13, 2017 1:59 PM Received from: External Pharmacy PLUS DHA 27 MG IRON-1 MG-312 MG-250 MG ORAL PACK >> Coco Webb MA 02/13/2017 1:59 PM >> COCO WEBB Feb 13, 2017 1:59 PM Rec eived from: External Pharmacy Received Sig: take 1 tablet and 1 capsule bymouth once a day CETIRIZINE 10 MG TABLET >> Coco Webb MA 02/13/2017 1:59 PM >> COCO WEBB Feb 13, 2017 1:59 PM Received from: External PharmacyProblem List As Of Date 02/13/2017 Noted Resolved Dichorionic diamniotic twin in third *INVALID FOR* Polyhydramnios in second trimester [O40.2XX0] INVALID FOR*12/05/2016 Poor growth complicating , antep*INVALID FOR* Status:Closed by DAMIAN NIETO MD on 02/13/17[facility] 02-13-2017 PROGRESSHNO ID: [id number]: Damian Hunterervice: (none)Author Type: PhysicianType: Progress NotesFiled: 02/13/2017 2:59 PMNote Text:Ultrasound reveals a twin gestation in utero. growth is lagging ineach twin. No effusions or dysrhythmias are identified. Theamniotic fluid is within normal limits.?34 week 4 day twin intrauterine gestationA Breech/ B CephalicConcordant growthDichorionic DiamnioticAppropriate amniotic fluid volume in each sacIntrauterine growth restrictionBiophysical profile 8 out of 8 in each twinReassuring umbilical artery Doppler assessment in each twinFetal bladderin twin B appears normal today?The patient was counseled as to the sonographic findings.?Recommend weekly biophysical profiles or twice weekly nonstress tests.Daily kick counts encouraged. Recommend delivery at 37 weeks aslong as nonstress tests remain reassuring?The patient presents for requested ultrasound. Full report available inthe Imaging tab in Epic?Damian Nieto MD [facility] [id number] Office Visit (OBGYAV) ELBA COFFMAN ([id number]) 1990 [facility] Time Provider Department01/23/17 1:00 PM DAMIAN NIETO OBSHAUNA During your visit today, we recorded the following information about you: Weight Height 73.9 kg 1.524 Ana Cristina Nieto MD 01/23/2017 1:56 PM SignedUltrasound reveals a twin gestation in utero. growth is lagging slightlyin twin B. No effusions or dysrhythmias areidentified. The amnioticfluid is within normal limits.31 week 4 day twin intrauterine gestationA Breech/ B CephalicConcordant growthDichorionic DiamnioticAppropriate amniotic fluid volume in each sacIntrauterine growth restriction vs more likely constitutionally smallBiophysical profile 8 out of 8 in twin BReassuring umbilical artery Doppler assessment in twin BFetal bladder in twin B is slightlyprominent. However no abnormalities in thekidney or amniotic fluid are notedThe patient was counseled as to the sonographic findings.Recommend weekly biophysical profiles or initiating nonstress tests. Dailyfetal kick counts encouraged. Recheck growth in 3 weeksThe patient presents for requested ultrasound. Full report available in theANDquot;ImagingANDquot; tab in [facility]villePamela WolfeProvider: DAMIAN NIETO [[id number]]Allergies As of Date: 01/23/2017(Not on File)Date Reviewed: 2016Reviewed by: Memo Arriaza - Fully AssessedPrimary Visit Diagnosis:Dichorionic diamniotic twin in third trimester [O30.043] Other Visit Diagnoses:Poor growth complicating , antepartum, second trimester, other fetus [O36.5929] 31 weeks gestation of [Z3A.31]Problem List As Of Date 01/23/2017 Noted Resolved Dichorionic diamniotic twin in third *INVALID FOR* Polyhydramnios in second trimester [O40.2XX0] INVALID FOR*12/05/2016 Poor growth complicating , antep*INVALID FOR* Status:Closed by DAMIAN NIETO MD on 01/23/17No[facility] 01-23-2017 PROGRESSHNO ID: [id number]: Damian Hunterervice: (none)Author Type: PhysicianType: Progress NotesFiled: 01/23/2017 1:56 PMNote Text:Ultrasound reveals a twin gestation in utero. growth is laggingslightly in twin B. No effusions or dysrhythmias are identified.The amniotic fluid is within no rmal limits.31 week 4 day twin intrauterine gestationA Breech/ B CephalicConcordant growthDichorionic DiamnioticAppropriate amniotic fluid volume in each sacIntrauterine growth restriction vs more likely constitutionally smallBiophysical profile 8 out of 8 in twin BReassuring umbilical artery Doppler assessment in twin BFetal bladder in twin B is slightly prominent. However no abnormalitiesin thekidney or amniotic fluid are notedThe patient was counseled as to the sonographic findings.Recommend weekly biophysical profiles or initiating nonstress tests. Dailyfetal kick counts encouraged. Recheck growth in 3 weeksThe patient presents for requested ultrasound. Full report available inthe Imaging tab in [place] Nieto MDProvidence Hospital [id number] Office Visit (OBGYAV) ELBA COFFMAN ([id number]) 1990 F[address] Time Provider Department12/22/16 1:00 PM DAMIAN NIETO OBGYAV During your visit today, we recorded the following information about you: Weight Height 69.6 kg 1.524 Ana Cristina Nieto MD 12/22/2016 1:53 PM SignedUltrasound reveals a twin gestation in utero. growth is appropriate. Nofetal effusions or dysrhythmias are identified. The amniotic fluid is withinnormal limits.27 week 0 day twin intrauterine gestationAppropriate growth and amniotic fluid volumeA Cephalic/ B TransverseConcordant growthDichorionic DiamnioticTransvaginal ultrasonography reveals that the cervix is 30 mm long and closedThe patient was counseled as to the sonographic findings.Follow up ultrasound recommended in 4 weeks for growth.The patient presents for requested ultrasound. Full report available in theANDquot;ImagingANDquot; tab in [place], ALINyessi Provider: DAMIAN NIETO [[id number]]Allergies As of Date: 12/22/2016(Not on File)D ate Reviewed: 11/21/2016Reviewed by: Memo Arriaza - Fully AssessedPrimary Visit Diagnosis:Dichorionic diamniotic twin in second trimester [O30.042] Other Visit Diagnosis:27 weeks gestationof [Z3A.27]Order(s):OBSTETRIC ULTRASOUND WHI [[id number]] Order #: [id number]: 1 STANDINGOBSTETRIC ULTRASOUND WHI [[id number]] Order #: [id number]: 1Problem List As Of Date 12/22/2016 Noted Resolved Dichorionic diamniotic twin in second*INVALID FOR* Polyhydramnios in second trimester [O40.2XX0] INVALID FOR*12/05/2016Encounter Number: [id number] Status:Closed by DAMIAN NIETO MD on 12/22/16NoGalion Community HospitalPROGRESSon [id number] ID: [id number]: Damian Hunterervice: (none)Author Type: PhysicianType: Progress NotesFiled: 12/22/2016 1:53 PMNote Text:Ultrasound reveals a twin gestation in utero. growth is appropriate. No effusions or dysrhythmias are identified. The amniotic fluid iswithin normal limits.27 week 0 day twin intrauterine gestationAppropriate growth and amniotic fluid volumeA Cephalic/ B TransverseConcordant growthDichorionic DiamnioticTransvaginal ultrasonography reveals that the cervix is 30 mm long andclosedThe patient was counseled as to the sonographic findings.Follow up ultrasound recommended in 4 weeks for growth.The patient presents for requested ultrasound. Full report available inthe Imaging tab in EpicDamian Nieto MDNoBrecksville VA / [facility] [id number] Office Visit (OBGYAV) EL[facility] COFFMAN ([id number]) [address] [facility] Department12/05/16 2:45 PM DAMIAN NIETO OBSHAUNA During your visit today, we recorded the following information about you:Weight Height 67.6 kg 1.524 Ana Cristina Nieto MD 12/05/2016 3:40 PM SignedUltrasound reveals a twin gestation in utero. growth is appropriate. Nofetal effusions or dysrhythmias are identified. The amniotic fluid is withinupper normal limits.24 week 4 day twin intrauterine gestationA Cephalic/ B TransverseConcordant growthDichorionic DiamnioticTransvaginal ultrasonography reveals that the cervixis 29 mm long (unfunneledportion). Small funnel is noted with contractionThe patient was counseled as to the sonographic findings.Follow up ultrasound recommended in 2 weeks for growth. Signs and symptoms ofpreterm labor discussed. Patient's high normal amniotic fluid may be relatedto gestational diabetes. 3 hour glucose tolerance test is pendingThe patient presents for requested ultrasound. Full report available in theANDquot;ImagingANDquot; tab in Pamela Goldman Provider: SELF [[id number]]Allergies As of Date: 12/05/2016(Not on File)Date Reviewed: 11/21/2016Reviewed by: Memo Arriaza - Fully AssessedPrimary Visit Diagnosis:Dichorionic diamniotic twin in second trimester [O30.042] Other Visit Diagnosis:24 weeks gestation of [Z3A.24]Order(s):OBSTETRIC ULTRASOUND WHI [[id number]] Order #: [id number]: 1 STANDING OBSTETRIC ULTRASOUND WHI [[id number]] Order #: [id number]: 1Problem List As Of Date 12/05/2016 Noted Resolved Dichorionic diamniotic twin in second*INVALID FOR* Polyhydramnios in second trimester [O40.2XX0] INVALID FOR*12/05/2016Encounter Number: [id number] Status:Closed by DAMIAN NIETO MD on 12/05/16No[facility] [id number] ID: [id number]: Damian Hunterervice: (none)Author Type: PhysicianType: Progress NotesFiled: 12/05/2016 3:40 PMNote Text:Ultrasound reveals a twin gestation in utero. growth is appropriate. No effusions or dysrhythmias are identified. The amniotic fluid iswithin upper normal limits.24 week 4 day twin intrauterine gestationA Cephalic/ B TransverseConcordant growthDichorionic DiamnioticTransvaginal ultrasonography reveals that the cervix is 29 mm long(unfunneled portion). Small funnel is noted with contractionThe patient was counseled as to the sonographic findings.Follow upultrasound recommended in 2 weeks for growth. Signs andsymptoms of labor discussed. Patient's high normal amniotic fluidmay be related to gestational diabetes. 3 hour glucose tolerance test ispendingThe patient presents for requested ultrasound. Full report available inthe Imaging tab in [place] Nieto MD [facility] [id number] Office Visit (OBGYC1) ELBA COFFMAN ([id number]) 1990 FDate Time Provider Department11/21/16 2:40 PM MEMO ARRIAZA OBGYC1 During your visit today, we recorded the following information about you: Weight Height 66.2 kg 1.524 My Arriaza MD 11/21/2016 4:58 PM SignedUltrasound report is in viewpo int. 3 para 1011 with previous spontaneous uncomplicated term vaginaldelivery.Repeat ultrasound exam in 2 weeks to assess cervical length. She has beeninstructed to refrain from vaginal intercourse.Patient has been instructed regarding symptoms/signs of labor.Pamela Weinberg Provider: TARIQ ANDREW [[id number]]Allergies As of Date: 11/21/2016(Not on File)Date Reviewed: 11/21/2016Reviewed by: Memo Arriaza - Fully AssessedPrimary Visit Diagnosis:22 weeks gestation of [Z3A.22] Other Visit Diagnoses:Encounter for anatomic survey [Z36] Dichorionic diamniotictwin in second trimester [O30.042] Polyhydramnios in second trimester, fetus 2 [O40.2XX2]Order(s):OBSTETRIC ULTRASOUND WHI [[id number]] Order #: [id number]: 1Problem List As Of Date 11/21/2016 Noted Resolved Dichorionic diamniotic twin in second*INVALID FOR* Polyhydramnios in second trimester [O40.2XX0] INVALID FOR* Status:Closed by MEMO ARRIAZA MD on 11/21/16No[facility] PROGRESSon [id number] ID: [id number]: Memo Lambert: (none)Author Type: PhysicianType: Progress NotesFiled: 11/21/2016 4:58 PMNote Text:Ultrasound report is in viewpoint. 3 para 1011 with previous sp ontaneous uncomplicated term vaginaldelivery.Repeat ultrasound exam in 2 weeks to assess cervical length. She has beeninstructed to refrain from vaginal intercourse.Patient has been instructed regarding symptoms/signs of labor.Memo Arriaza MDNoSelect Medical [facility] Vital Signs Date TimeVital SignValuePerforming RsylbjedwKlgpzfrz11-69-7073 12:26-0400Body rmtket782.4 cmRamon Janes DO Work Phone: [facility]09-21-2025 12:26-0400 Body mass index (BMI) [Ratio]32.8 kg/i7Ufprz Bucks DO Work Phone: [facility]09-21-2025 12:26-0400 Body .5 [degF]Ramon Janes DO Work Phone: [facility]09-21-2025 12:26-0400 Body sedzbp69.2 kgRamon Janes DO Work Phone: [facility]09-21-2025 12:26-0400 Diastolic blood mm[Hg]Ramon Janes DO Work Phone: [facility]09-21-2025 12:26-0400 Heart rate68 /minRamon Janes DO Work Phone: [facility]09-21-2025 12:26-0400 Respiratory rate14 /minRamon Ruiz DO Work Phone: [facility]09-21-2025 12:26-0400 SaO2% (BldA) [Mass fraction]98 %Ramon Ruiz DO Work Phone: [facility]09-21-2025 12:26-0400 Systolic blood cnymwcjb826 mm[Hg]Ramon Ruiz DO Work Phone: [facility]09-17-2025 15:48-0400 Body .4 Felice Andrew MD Work Phone: [facility] CenterJunmhyxnhj98-09-3897 15:48-0400Body mass index (BMI) [Ratio]32.61 kg/r1MleflwTariq Andrew MD Work Phone: [facility] CenterXdkhcmcmkx57-57-6151 15:48-0400Body ydhicv32.75 kgTariq Andrew MD Work Phone: [facility] CenterGstadizwxc07-77-1917 15:48-0400Diastolic blood wkieerfk18 mm[Hg]Tariq Andrew MD Work Phone: [facility] CenterBixqycblpe57-60-2999 15:48-0400Systolic blood zkfsreis772 mm[Hg]Tariq Andrew MD Work Phone: [facility] CenterWezcjijpsn02-50-2550 11:02-0400Body tmnzoq001.4 cmRamon Sara DO Work Phone: [facility]08-07-2025 11:02-0400 Body mass index (BMI) [Ratio]33.2 kg/a2Misbm Sara DO Work Phone: [facility]08-07-2025 11:02-0400 Body jrawnr47.11 kgRamon Janes DO Work Phone: [facility]08-07-2025 11:02-0400 Diastolic blood mm[Hg]Ramon Sara DO Work Phone: [phone]08-07-2025 11:02-0400 Heart rate74 /minRamon Janes DO Work Phone: 1(284)1-[address] [place], [place] 1414308-07-2025 11:02-0400 Respiratory rate20 /minRamon Janes DO Work Phone: 1([phone])[address] [place], [place] 1414308-07-2025 11:02-0400 SaO2% (BldA) [Mass fraction]97 %Ramonbrandie Janes DO Work Phone: 1(834)3-[address] [place], [place] 1414308-07-2025 11:02-0400 Systolic blood dtozobtr300 mm[Hg]Ramon Janes DO Work Phone: 1(252)[address] [place], [place] 7374406-26-2025 14:18-0400 Body zcnfxe095.4 cmRamon Janes DO Work Phone: 1(869)[address] [place], [place] 7374406-26-2025 14:18-0400 Body mass index (BMI) [Ratio]34.5 kg/t7LfvwbRamon Janes DO Work Phone: 1(051)[address] [place], [place] 7374406-26-2025 14:18-0400 Body wacfwy40.28 kgRamon Janes DO Work Phone: 1(323)[address]06-26-2025 14:18-0400 Diastolic blood mm[Hg]Ramon Janes DO Work Phone: 1(176)[address]06-26-2025 14:18-0400 Heart rate61 /minChidian Bucks DO Work Phone: 1(780)9-[address] [place], [place] 1414306-26-2025 14:18-0400 Respiratory rate16 /minChidian Bucks DO Work Phone: 1(207)0-[address] [place], [place] 1414306-26-2025 14:18-0400 SaO2% (BldA) [Mass fraction]97 %Ramon Janes DO Work Phone: 1(934)0-[address] [place], [place] 1414306-26-2025 14:18-0400 Systolic blood jaqlkvbg100 mm[Hg]Ramon Bucks DO Work Phone: [facility]06-24-2025 12:55-0400 Body cqxpgxjieot34.4 [degF]Drew Ortiz M[employer] OPERATOR Work Phone: [facility] CenterBlvbcezsrc25-04-3555 12:55-0400Diastolic blood mm[Hg]Drew Ortiz MULTI P[employer]CH OPERATOR Work Phone: [facility] CenterPkhcrbdqcc98-88-5234 12:55-0400Heart rate86 /min Drew Ortiz M[employer] P[employer] OPERATOR Work Phone: [phone] CenterConybapxhq36-70-1623 12:55-0400Respiratory rate20 /minDrew Ortiz MULTI PUNCH OPERATOR Work Phone: [facility] CenterAzlmiiswtu32-23-2334 12:55-3353KvX0% (BldA) [Mass fraction]98 %Drew Ortiz MULTI P[employer]CH OPERATOR Work Phone: [facility] CenterJaxladfdyj60-34-3600 12:55-0400Systolic blood mm[Hg]Drew Ortiz M[employer]I PUNCH OPERATOR Work Phone: [facility] CenterBkikqfbbpn44-39-0283 13:43-0400Body etgjqz138.4 cmTrumbull [facility] Hospital06-11-2025 13:43-0400Body mass index (BMI) [Ratio]33.5 kg/t0YkamfcdfcTrumbull Memorial Hospital06-11-2025 13:43-0400Body .4 [degF][facility]06-11-2025 13:43-0400Body tyisae24.01 kgTrumbull Memorial Hospital06-11-2025 13:43-0400Diastolic blood utkoqycr41 mm[Hg][facility]06-11-2025 13:43-0400 Heart rate79 /[facility]06-11-2025 13:43-0400 Respiratory rate16 /[facility]06-11-2025 13:43-0400 SaO2% (BldA) [Mass fraction]97 %[facility]06-11-2025 13:43-0400Systolic blood uglmyelr495 mm[Hg][facility] 10-05-2024 13:30-0400Body eijwei294.4 cmTrumbull Memorial Hospital 10-05-2024 13:30-0400Body mass index (BMI) [Ratio]33.6 kg/q2ShrjsptpwTrumbull Memorial Hospital06-08-2025 13:30-0400Body hpjzddmqlyr39.1 [degF][facility]06-08-2025 13:30-0400Body nbvkna78.18 kgTrumbull Memorial Hospital06-08-2025 13:30-0400Diastolic blood wegjdoip08 mm[Hg][facility]06-08-2025 13:30-0400Heart rate88 /[facility]06-08-2025 13:30-0400Respiratory rate19 /[facility]06-08-2025 13:30-1724NqP5% (BldA) [Mass fraction]95 %[facility]06-08-2025 13:30-0400Systolic blood ukoioemz605 mm[Hg] [facility]06-02-2025 09:04-0400Body mass index (BMI) [Ratio]33.71 kg/g8Rfjrau Workman PA Work Phone: [facility] CenterLcjjcvzmqg30-86-6248 09:04-0400Body ctyvsivtzur98 [degF]Summer Workman PA Work Phone: [facility] CenterRywisocptd45-67-0793 09:04-0400Body lsedyg06.3 kg Summer Workman PA Work Phone: [facility] CenterSwnjgpqrpo12-62-2610 09:04-0400Diastolic blood kjholebr02 mm[Hg]Summer Workman PA Work Phone: [facility] CenterDbozxvivfk33-00-3401 09:04-0400Heart rate77 /min Summer Workman PA Work Phone: [facility] CenterGolpnzguft74-79-6213 09:04-7635RhH6% (BldA) [Mass fraction]99 %Summer Workman PA Work Phone: noBo[facility] Hospital CenterMtkwqrdpkc19-18-0886 09:04-0400Systolic blood vptazssp424 mm[Hg]Summer Workman PA Work Phone: [facility] CenterRocqddhjak93-26-7547 12:52-0400Body bspcii531.4 cmTrumbull Memorial [facility] 12:52-0400Body mass index (BMI) [Ratio]34.9 kg/b6XxbeesovfTrumbull Memorial Hospital04-17-2025 12:52-0400Body iwydxj60.19 kgTrumbull [facility]04-17-2025 12:52-0400Diastolic blood bhekrcer19 mm[Hg][facility]04-17-2025 12:52-0400 Heart rate89 /[facility]04-17-2025 12:52-0400 Respiratory rate18 /[facility]04-17-2025 12:52-0400 SaO2% (BldA) [Mass fraction]98 %[facility]04-17-2025 12:52-0400Systolic blood ylyvhyca041 mm[Hg][facility] 07-30-2024 16:50-0400Body atymli508.4 cmRamon Ruiz DO Work Phone: [facility]04-02-2025 16:50-0400 Body mass index (BMI) [Ratio]35.2 kg/g8Jsdxf Kuns DO Work Phone: [facility]04-02-2025 16:50-0400 Body elrgfdzamue99.2 [degF]Ramon Janes DO Work Phone: [facility]04-02-2025 16:50-0400 Body .64 kgChidibrandie Janes DO Work Phone: [facility]04-02-2025 16:50-0400 Diastolic blood mm[Hg]Ramon Janes DO Work Phone: [facility]04-02-2025 16:50-0400 Heart rate75 /parisChidibrandie Janes DO Work Phone: [facility]04-02-2025 16:50-0400 Systolic blood ssitungt933 mm[Hg]Ramon Ruiz DO Work Phone: [facility]12-11-2024 08:50-0500 Body mass index (BMI) [Ratio]32.03 kg/q0LudqhpTariq Andrew MD Work Phone: [facility] CenterBunaknncgo92-23-1660 08:50-0500Body xpbhhu83.39 kgTariq Andrew MD Work Phone: [facility] CenterOfrumabhdv34-26-8649 08:50-0500Diastolic blood tvijensq77 mm[Hg]Tariq Andrew MD Work Phone: [facility] CenterUpwcdhohsz82-00-7631 08:50-0500Systolic blood lrfkryvl331 mm[Hg]Tariq Andrew MD Work Phone: [facility] CenterVarixbdzax41-72-7603 13:07-0500Body bhzjgy410.4 cmRamon Janes DO Work Phone: 1(004)1-[address] [place], [place] 1414312-05-2024 13:07-0500 Body mass index (BMI) [Ratio]32.5 kg/d6RyfdeRamon Janes DO Work Phone: 1(720)[address]12-05-2024 13:07-0500 Body azvseg74.74 kgRamon Janes DO Work Phone: 1(469)1-[address] [place], [place] 1414312-05-2024 13:07-0500 Diastolic blood mm[Hg]Ramonbrandie Janes DO Work Phone: 1(048)676-[address] [place], [place] 1414312-05-2024 13:07-0500 Heart rate66 /minChidian Kuns DO Work Phone: 7(254)989-[address] [place], [place] 1414312-05-2024 13:07-0500 Respiratory rate16 /minChidian Kuns DO Work Phone: 2(282)1-[address] [place], [place] 1414312-05-2024 13:07-0500 SaO2% (BldA) [Mass fraction]98 %Ramonbrandie Janes DO Work Phone: 1(698)437-[address] [place], [place] 1414312-05-2024 13:07-0500 Systolic blood mm[Hg]Ramon Sara DO Work Phone: [facility]11-12-2024 15:58-0500 Body mass index (BMI) [Ratio]31.83 kg/a3KypqxmTariq Andrew MD Work Phone: [facility] CenterLmuowejydx01-85-5976 15:58-0500Body ipclzm12.94 kgTariq Andrew MD Work Phone: [facility] CenterKmgqunowqm77-15-5348 15:58-0500Diastolic blood vfyukcwi27 mm[Hg]Tariq Andrew MD Work Phone: [facility] CenterHerqanfopu45-80-4985 15:58-0500Systolic blood mm[Hg]Tariq Andrew MD Work Phone: [facility] CenterFjpysdjoow29-08-4913 11:05-0400Diastolic blood klrmajzp25 mm[Hg]DO Ramon Ruiz Work Phone: [facility]10-18-2024 11:05-0400 Heart rate67 /SendyTrev Ramon Ruiz Work Phone: [facility]10-18-2024 11:05-0400 Respiratory rate16 /SendyTrev Ramon Ruiz Work Phone: [facility]10-18-2024 11:05-0400 SaO2% (BldA) [Mass fraction]100 %DO Ramon Ruiz Work Phone: [facility]10-18-2024 11:05-0400 Systolic blood xeyrmmse884 mm[Hg]DO Ramon Ruiz Work Phone: [facility]10-18-2024 10:30-0400 Body jkmanzgzgwv81.4 [degF]DO Ramon Ruiz Work Phone: [facility]10-18-2024 10:00-0400 Inhaled oxygen flow rate8 L/Yared Ruiz Work Phone: [facility]10-18-2024 08:20-0400 Body uoshbv248.4 cmDO Ramon Ruiz Work Phone: [address] [place], [place] 9775910-18-2024 08:20-0400 Body bydlut54.93 kgDO Ramon Ruiz Work Phone: 7(597)717-[address] [place], [place] 1414309-26-2024 12:48-0400 Body qrbedl598.4 cmDO Ramon Ruiz Work Phone: 1(763)171-[address] [place], [place] 1414309-26-2024 12:48-0400 Body mass index (BMI) [Ratio]32.2 kg/m2DO Ramon Ruiz Work Phone: 0(450)[address]09-26-2024 12:48-0400 Body .84 kgDO Ramon Ruiz Work Phone: 1(348)[address]09-26-2024 12:48-0400 Diastolic blood jpcyijbq38 mm[Hg]DO Ramon Ruiz Work Phone: 1(719)955-[address] [place], [place] 1414309-26-2024 12:48-0400 Heart rate79 /Yared Ruiz Work Phone: 9(158)5-[address] [place], [place] 1414309-26-2024 12:48-0400 Respiratory rate16 /Yared Ruiz Work Phone: 9(897)7-[address] [place], [place] 1414309-26-2024 12:48-0400 SaO2% (BldA) [Mass fraction]98 %DO Ramon Ruiz Work Phone: 4(526)406-[address] [place], [place] 1414309-26-2024 12:48-0400 Systolic blood nvawpyig010 mm[Hg]DO Ramon Ruiz Work Phone: 3(166)807-[address] [place], [place] 1414309-25-2024 09:38-0400 Body mass index (BMI) [Ratio]31.83 kg/c3UqqgexTariq Andrew MD Work Phone: [facility] CenterVspzynzyvh94-08-1828 09:38-0400Body gduvbh24.94 kgTariq Andrew MD Work Phone: [facility] CenterLdjndhdnpg24-39-4046 15:18-0400Body zadfhi713.4 cmDO Ramon Ruiz Work Phone: [facility]09-03-2024 15:18-0400 Body mass index (BMI) [Ratio]32.1 kg/m2DO Ramon Ruiz Work Phone: [facility]09-03-2024 15:18-0400 Body dnuyivwzzhv24.6 [degF]DO Ramon Ruiz Work Phone: [facility]09-03-2024 15:18-0400 Body iyurzv01.5 kgDO Ramon Ruiz Work Phone: [facility]09-03-2024 15:18-0400 Diastolic blood pfyllghz22 mm[Hg]DO Ramon Ruiz Work Phone: [facility]09-03-2024 15:18-0400 Heart rate82 /Yared Ruiz Work Phone: [facility]09-03-2024 15:18-0400 Respiratory rate20 /Yared Ruiz Work Phone: [facility]09-03-2024 15:18-0400 SaO2% (BldA) [Mass fraction]97 %DO Ramon Ruiz Work Phone: [facility]09-03-2024 15:18-0400 Systolic blood mm[Hg]DO Ramon Ruiz Work Phone: [facility]03-28-2024 16:06-0400 Body .4 cmTrumbull [facility] Hospital03-28-2024 16:06-0400Body mass index (BMI) [Ratio]31 kg/e2PwoespubiTrumbull Memorial Hospital03-28-2024 16:06-0400Body mutvmy68.12 kgTrumbull [facility] Hospital03-28-2024 16:06-0400Diastolic blood ypvcgyae93 mm[Hg][facility] 07-26-2023 16:06-0400Heart rate96 /[facility] 07-26-2023 16:06-0400Respiratory rate16 /[facility] 07-26-2023 16:06-0400OsO2% (BldA) [Mass fraction]97 %[facility]03-28-2024 16:06-0400Systolic blood giegzaxu178 mm[Hg][facility]03-25-2024 10:37-0400Body vjdxda679.4 cmTrumbull Memorial Hospital03-25-2024 10:37-0400Body mass index (BMI) [Ratio]30.8 kg/u9KgcbvdakgTrumbull Memorial Hospital03-25-2024 10:37-0400Body comzdskiphw34.5 [degF][facility]03-25-2024 10:37-0400Body mlsrky21.66 kgTrumbull Memorial Hospital03-25-2024 10:37-0400Heart rate78 /[facility]03-25-2024 10:37-0400Respiratory rate18 /[facility]03-25-2024 10:37-2971YrO0% (BldA) [Mass fraction]98 %[facility]03-02-2024 12:22-0500Body soaexs792.4 cmTrumbull [facility] Hospital03-02-2024 12:22-0500Body mass index (BMI) [Ratio]30.4 kg/h1KsolfperbTrumbull Memorial Hospital03-02-2024 12:22-0500Body kpguqwkhhia69.5 [degF][facility]03-02-2024 12:22-0500Body .76 kg [facility]03-02-2024 12:22-0500Diastolic blood miocrlzs58 mm[Hg][facility]03-02-2024 12:22-0500Heart qqop575 /min [facility]03-02-2024 12:22-0500Respiratory rate16 /min [facility]03-02-2024 12:22-2384GlS0% (BldA) [Mass fraction]98 %[facility]03-02-2024 12:22-0500Systolic blood jqupjmrb150 mm[Hg][facility]10-05-2023 13:45-0400 Body yyitta321.4 cmRamon Ruiz Other [employer] Other 10-05-2023 13:45-0400Body mass index (BMI) [Ratio] 30.93 kg/l2UgyxiRamon Ruiz Other [employer] Other 10-05-2023 13:45-0400Body zxwfec99.85 kgRamon Ruiz Other [employer] Other 10-05-2023 13:45-0400Diastolic blood tmjiotqq61 mm[Hg] Ramon Ruiz Other [employer] Other 10-05-2023 13:45-0400Respiratory rate16 /minRamon Ruiz Other [employer] Other 10-05-2023 13:45-6216SiK6% (BldA) [Mass fraction]97 % Ramon Ruiz Other [employer] Other 10-05-2023 13:45-0400Systolic blood ubdrkrml276 mm[Hg] Ramon Ruiz Other [employer] Other 09-05-2023 13:00-0400Body adzazj515.4 cmRamon Ruiz Other [employer] Other 09-05-2023 13:00-0400Body mass index (BMI) [Ratio] 32.18 kg/d1ZppqnRamon Ruiz Other [employer] Other 09-05-2023 13:00-0400Body kayymx98.75 kgRamon Ruiz Other [employer] Other 09-05-2023 13:00-0400Diastolic blood ovcfrrbx71 mm[Hg] Ramon Ruiz Other [employer] Other 09-05-2023 13:00-0400Respiratory rate16 /minRamon Ruiz Other [employer] Other 09-05-2023 13:00-6691LeQ8% (BldA) [Mass fraction]99 % Ramon Janejohan Other [employer] Other 09-05-2023 13:00-0400Systolic blood esgerbfb540 mm[Hg] Ramon Ruiz Other [employer] Other 08-08-2023 12:30-0400Body zbrvoz414.4 cmRamon Ruiz Other [employer] Other 08-08-2023 12:30-0400Body mass index (BMI) [Ratio] 33.78 kg/w2Vihvd Kuns Other [employer] Other 08-08-2023 12:30-0400Body .47 kgChidibrandie Ruiz Other [employer] Other 08-08-2023 12:30-0400Diastolic blood xdkfiwrn30 mm[Hg] Ramonbrandie Janes Other [employer] Other 08-08-2023 12:30-0400Respiratory rate16 /minRamon Ruiz Other [employer] Other 08-08-2023 12:30-5167GdJ7% (BldA) [Mass fraction]98 % Ramon Ruiz Other [employer] Other 08-08-2023 12:30-0400Systolic blood rauennuk763 mm[Hg] Ramon Ruiz Other [employer] Other 02-16-2023 15:45-0500Body arqtvg624.4 cmRamon Ruiz Other [employer] Other 02-06-2023 19:15-0500Body owkvya582.4 cmPameltess Womack Other [employer] Other 02-06-2023 19:15-0500Body mass index (BMI) [Ratio]33.2 kg/l5Xtkuntlillie Womack Other [employer] Other 02-06-2023 19:15-0500Body vgtxhqzquno05.8 [degF]Nicole Marshallmond Other [employer] Other 02-06-2023 19:15-0500Body yljpmm91.11 kgPalillie Womack Other [employer] Other 02-06-2023 19:15-0500Diastolic blood mm[Hg] Nicole Shanta Other [employer] Other 02-06-2023 19:15-0500Respiratory rate18 /minPalillie Marshallmond Other [employer] Other 02-06-2023 19:15-8395LoA7% (BldA) [Mass fraction]100 % Nicole Womack Other [employer] Other 02-06-2023 19:15-0500Systolic blood coiirjir950 mm[Hg] Nicole Marshallmond Other [employer] Other 01-04-2023 12:00-0500Body .4 cmRamon Ruiz Other [employer] Other 01-04-2023 12:00-0500Body mass index (BMI) [Ratio] 33.39 kg/l5QoeupRamon Ruiz Other [employer] Other 01-04-2023 12:00-0500Body wtudms32.57 kgRamon Ruiz Other [employer] Other 01-04-2023 12:00-0500Diastolic blood hoittctr56 mm[Hg] Ramon Ruiz Other [employer] Other 01-04-2023 12:00-0500Respiratory rate18 /minRamon Ruiz Other [employer] Other 01-04-2023 12:00-3898TlP2% (BldA) [Mass fraction]98 % Ramon Ruiz Other [employer] Other 01-04-2023 12:00-0500Systolic blood ktjgeuzj041 mm[Hg] Ramon Ruiz Other [employer] Other 11-29-2022 16:45-0500Body .4 cmChristopher Shelbi Other [employer] Other 11-29-2022 16:45-0500Body mass index (BMI) [Ratio]33.2 kg/m3Taugxlxbweb Shelbi Other [employer] Other 11-29-2022 16:45-0500Body zbogtjwbdgx28.2 [degF] Christshyanner Shelbi Other [employer] Other 11-29-2022 16:45-0500Body .11 kgChristopher Shelbi Other [employer] Other 11-29-2022 16:45-0500Diastolic blood uhpdkqrx78 mm[Hg] Christshyanner Shelbi Other [employer] Other 11-29-2022 16:45-0500Respiratory rate20 /min Christopher Shelbi Other [employer] Other 11-29-2022 16:45-2854NaK3% (BldA) [Mass fraction]98 % Christopher Shelbi Other [employer] Other 11-29-2022 16:45-0500Systolic blood cuusptdz051 mm[Hg] Christopher Shelbi Other [employer] Other 11-29-2022 15:30-0500Body .4 cmRamon Ruiz Other [employer] Other 11-29-2022 15:30-0500Body mass index (BMI) [Ratio] 33.59 kg/n7RbfzpRamon Ruiz Other [employer] Other 11-29-2022 15:30-0500Body yiiewm98.02 kgChidibrandie Ruiz Other [employer] Other 11-29-2022 15:30-0500Diastolic blood yleeiehp12 mm[Hg] Ramon Janejohan Other [employer] Other 11-29-2022 15:30-0500Respiratory rate16 /minBrybrandie Ruiz Other [employer] Other 11-29-2022 15:30-2779NuX9% (BldA) [Mass fraction]98 % Ramon Ruiz Other [employer] Other 11-29-2022 15:30-0500Systolic blood pmyjbknd975 mm[Hg] Ramon Ruiz Other [employer] Other 08-04-2022 14:30-0400Body ownsfo671.4 cmRamon Ruiz Other [employer] Other 08-04-2022 14:30-0400Body mass index (BMI) [Ratio] 34.37 kg/x8Gjrhh Kuns Other [employer] Other 08-04-2022 14:30-0400Body xyvnve17.83 kgChidibrandie Ruiz Other [employer] Other 08-04-2022 14:30-0400Diastolic blood nkcwtglu82 mm[Hg] Ramon Ruiz Other [employer] Other 08-04-2022 14:30-0400Respiratory rate16 /minRamon Ruiz Other [employer] Other 08-04-2022 14:30-7727UbG6% (BldA) [Mass fraction]99 % Ramonbrandie Ruiz Other [employer] Other 08-04-2022 14:30-0400Systolic blood hkwhgicv360 mm[Hg] Ramonbrandie Ruiz Other [employer] Other 07-05-2022 14:30-0400Body qqygeh065.4 cmRamon Ruiz Other [employer] Other 07-05-2022 14:30-0400Body mass index (BMI) [Ratio] 35.66 kg/c9Lklmc Kuns Other [employer] Other 07-05-2022 14:30-0400Body awosbk17.83 kgChidibrandie Ruiz Other [employer] Other 07-05-2022 14:30-0400Diastolic blood nketzfkr56 mm[Hg] Ramon Ruiz Other [employer] Other 07-05-2022 14:30-0400Respiratory rate18 /minChidibrandie Ruiz Other [employer] Other 07-05-2022 14:30-3981LfJ6% (BldA) [Mass fraction]98 % Ramonbrandie Janejohan Other [employer] Other 07-05-2022 14:30-0400Systolic blood xavmaaji001 mm[Hg] Ramon Ruiz Other [employer] Other 10-06-2021 10:15-0400Body yzvefn803.4 cmChristchase Shelbi Other [employer] Other 10-06-2021 10:15-0400Body mass index (BMI) [Ratio] 36.32 kg/w6Xnkugehrfoa Shelbi Other [employer] Other 10-06-2021 10:15-0400Body lmahaycjqgh93.9 [degF] Mansoorer Shelbi Other [employer] Other 10-06-2021 10:15-0400Body jgdjvi03.37 kgChristopher Shelbi Other [employer] Other 10-06-2021 10:15-0400Diastolic blood mm[Hg] Mansoorer Shelbi Other [employer] Other 10-06-2021 10:15-0400Respiratory rate20 /min Christshyanner Shelbi Other [employer] Other 10-06-2021 10:15-3740GdB9% (BldA) [Mass fraction]98 % Christshyanner Shelbi Other [employer] Other 10-06-2021 10:15-0400Systolic blood mm[Hg] Mansoorer Shelbi Other [employer] Other 10-01-2021 11:30-0400Body dovjcp964.4 cmRamon Ruiz Other [employer] Other 10-01-2021 11:30-0400Body mass index (BMI) [Ratio] 36.52 kg/m1ItzvhRamon Ruiz Other [employer] Other 10-01-2021 11:30-0400Body .82 kgRamon Ruiz Other [employer] Other 10-01-2021 11:30-0400Diastolic blood lmznaowu69 mm[Hg] Ramon Sara Other [employer] Other 10-01-2021 11:30-0400Respiratory rate20 /minRamon Ruiz Other [employer] Other 10-01-2021 11:30-6209MwA7% (BldA) [Mass fraction]99 % Ramon Ruiz Other [employer] Other 10-01-2021 11:30-0400Systolic blood ojzluana595 mm[Hg] Ramon Sara Other [employer] Other Encounters Encounter DateEncounter TypeCare ProviderFacilityStart: 02-18-2025 End: 45-60-3269pjejutjlyfYVWKIZ Alpa ANDREWNot AvailableStart: 01-18-2025 End: 22-75-3994nibeesnchuLciby Kuns DO Work Phone: [facility] Work Phone: Start: 01-18-2025 End: 13-56-9943Obgxdbj encounter procedureJocy Pham CONTROLLED ATMOSPHERIC FURNACE [facility]RA[facility]ER-[facility] Work Phone: Start: 01-14-2025 End: 08-83-5472Pseatyk encounter statusTariq Andrew MD Work Phone: noGA HealthcareStart: 01-14-2025 End: 63-54-1341Whnnnrgp preventive med est patient 18-39 yrsTariq Andrew MD Work Phone: [facility] OBGYNComment on above:Encounter for gynecological examination without abnormal finding; Encounter for screening for cervical cancer; Menorrhagia with regular cycle; Post-tubal ligation syndrome; Cystocele, midline; Chronic vaginitis; Encounter for gynecological examination; Screen for STD (sexually transmitted disease); STD exposure; Cervicitis and endocervicitis; Vaginitis and vulvovaginitisStart: 01-14-2025 End: 98-42-6942fkkqkzoryqVSVDII P JONESNot AvailableStart: 12-04-2024 End: 82-51-4759hqvnnlluujGlaei Kuns DO Work Phone: [facility] Work Phone: Start: 12-04-2024 End: 30-99-9786Gjecxxx encounter procedureNate Mario MD-[facility] Pul[facility] Work Phone: Start: 10-23-2024 End: 65-70-5016tyfazdzsyfEtyyz Kuns DO Work Phone: [facility] Work Phone: Start: 10-23-2024 End: 37-94-0576Ymgyjjz encounter procedureRamon Yuen DO-[facility] [place] Work Phone: Start: 10-21-2024 End: 43-34-1935Fhsfgj Kwadwo Ortiz MULTI PUNCH OPERATOR Work Phone: [facility] UCStart: 10-21-2024 End: 36-17-1263Upbwdbvimal Ortiz MULTI PUNCH OPERATOR Work Phone: [facility] UCStart: 10-21-2024 End: 27-91-0132Wckzpsecj encounterLindsay N Diana MULTI PUNCH OPERATOR Work Phone: [facility] FMStart: 10-21-2024 End: 71-72-6782Pdsweu outpatient visit 25 minutesLindsay N Diana MULTI PUNCH OPERATOR Work Phone: [facility] UCComment on above:Unprotected sexStart: 10-21-2024 End: 19-03-4982tirxzbxbvsRGRPRUQ N DIANANot AvailableStart: 10-08-2024 End: 37-98-7235lsssheetklWydbquhadOhioHealth [facility] Work Phone: Start: 10-08-2024 End: 31-47-2641Bqghyku encounter procedureCare[facility] Work Phone: Start: 10-05-2024 End: 70-71-2705jgljqbdonpHmvdkymoh [facility] Work Phone: Start: 10-05-2024 End: 28-16-4933Hmsysuv encounter procedureCarepartners Rehabilitation [facility] Work Phone: Start: 09-29-2024 End: 01-71-3540bbzuiravzuTUHLAW Vero WORKMANNot AvailableStart: 09-29-2024 End: 57-36-6631Fabpfw outpatient new 30 minutesSummer M Workman PA Work Phone: [facility] UCComment on above:Upper respiratory tract infection, unspecified type (Primary Dx); Pharyngitis, unspecified etiologyStart: 08-14-2024 End: 58-35-3852Grqpyht encounter procedureDorothea Dix Hospitalsar[facility] [place] Work Phone: Start: 07-30-2024 End: 83-61-3096kvkupbshlxOzkwi Kuns DO Work Phone: [facility] Work Phone: Start: 07-30-2024 End: 72-76-0321Ytbzzsi encounter procedureChidibrandie Janejohan DO Work Phone: [facility] Work Phone: Start: 2024 End: 45-20-1843Qaricap encounter procedureRamon Ruiz DO Work Phone: [facility] Work Phone: Start: 2024 End: 78-72-5271polvgnsrcxUdzvw Kuns DO Work Phone: [facility] Work Phone: Start: 05-20-2024 End: 70-95-9756etpnaxzekwTwkbo Kuns DO Work Phone: [facility] Work Phone: Start: 05-20-2024 End: 36-56-3158Zxvqtgv encounter procedureChidibrandie Janejohan DO Work Phone: [facility] [place] Work Phone: Start: 04-09-2024 End: 47-93-4178fayxxssmbzKZMWDC P JONESNot AvailableStart: 04-09-2024 End: 14-92-8900Tmqvwl outpatient visit 15 minutesTariq Andrew MD Work Phone: [facility] OBComment on above:Acute vaginitis (Primary Dx); Vaginal dischargeStart: 04-03-2024 End: 73-50-4759mzduairylaRmaqj KunsFacility:[facility] Start: 04-03-2024 End: 94-63-7102Lcerrmd encounter procedureRamon Ruiz DO Work Phone: [facility] [place] Work Phone: Start: 03-12-2024 End: 97-26-3423Ommmpy OnlyTariq Andrew MD Work Phone: [facility] OBComment on above:Dysuria (Primary Dx)Start: 03-11-2024 End: 40-61-7515Mdoddc follow up visit related to original Jad Andrew MD Work Phone: [facility] OBComment on above:Encounter for postoperative care; Menorrhagia with regular cycle; Vaginal bleeding; Pelvic pain in female; Post-tubal ligation syndromeStart: 03-11-2024 End: 25-06-8090fnxnleusqpCCOJLE P JONESNot AvailableStart: 02-15-2024 End: 75-87-4090Qkhlvxzqn to same day surgery centerDO Ramon Ruiz Work Phone: [facility] CampusStart: 02-15-2024 End: 01-03-2182mzfojgqyeuVS Bryan Kuns Work Phone: [facility] Work Phone: Start: 01-24-2024 End: 78-65-7561Ncnkgcp encounter procedureDO Ramon Ruiz Work Phone: [facility] [place] Work Phone: Start: 01-24-2024 End: 58-00-7576cinetjhllsVI Bryan Kuns Work Phone: [facility] Work Phone: Start: 01-24-2024 End: 96-29-5663slkzktsjtoGT Bryan Kuns Work Phone: [facility] Work Phone: Start: 01-24-2024 End: 63-88-1643Nekozkf encounter procedureDO Ramon Ruiz Work Phone: [facility] [place] Work Phone: Start: 01-23-2024 End: 68-77-3198Gwkzlq outpatient visit 10 Marlo Andrew MD Work Phone: [facility] OBComment on above:Menorrhagia with regular cycle; Vaginal bleeding; Pelvic pain in female; Post-tubal ligation syndromeStart: 01-18-2024 End: 51-03-1614Aslxoepix encounterTariq Andrew MD Work Phone: [facility] OBStart: 01-01-2024 End: 48-08-6035mlndszzajlUW Ramon Ruiz Work Phone: [facility] Work Phone: Start: 01-01-2024 End: 43-50-4625Xcpyhry encounter procedureDO Ramon Ruiz Work Phone: [facility] Work Phone: Start: 12-10-2023 End: 14-00-0129Rofpwxu encounter procedureDO Ramon Ruiz Work Phone: [facility] [place] Work Phone: Start: 12-10-2023 End: 70-69-0601tiqirmqilbUG Ramon Ruiz Work Phone: [facility] Work Phone: Start: 54-33-3130Bel-patient / Non-visitDO Ramon Ruiz Work Phone: [facility] [place] Work Phone: Start: 07-26-2023 End: 48-88-7141zaabsazayzEhbyasslgSelect [facility] Work Phone: Start: 07-26-2023 End: 77-88-7600Xabreds encounter procedureFirguilfords [facility]ician [facility] [place] Work Phone: Start: 07-23-2023 End: 22-39-9085gyntyooowaEbrpwfzmhSelect [facility] Work Phone: Start: 07-23-2023 End: 61-85-9482Lseloym encounter procedureCarepartners [facility] Work Phone: Start: 06-30-2023 End: 87-61-3656Vdxjkdp encounter procedureT[facility]y [facility] Work Phone: Start: 74-04-8778Nte-patient / Non-visitT[facility]y [facility] Work Phone: Start: 06-05-2023 End: 99-00-3616smyjamqnfaFutks [employer] Other [employer] Other Start: 46-54-2336Ljvxfpljg encounterBrybrandie JanesFPG Family Medicine [place]Start: 05-22-2023 End: 57-60-6897dtdcjmablaCjtsawpbqig Shelbi Other [employer] Other Start: 45-43-6002Hseurt outpatient visit 15 minutes Nate FalconG Pulmonary DiseaseStart: 04-04-2023 End: 46-95-7720gtekiikxmpPopfw [employer] Other [employer] Other Start: 38-81-2095Gptyiconj encounterBrybrandie JanesFPG Family Medicine [place]Start: 02-01-2023 End: 13-23-9557kkapctdxtoLoylm [employer] Other [employer] Other Start: 47-69-2720Eemfom outpatient visit 15 minutes Ramon RuizFPG Family Medicine [place]aliaStart: 01-24-2023 End: 18-28-4493xdrtlcyiyrPlgfs [employer] Other [employer] Other Start: 13-48-6076Ahbssffli encounterBrybrandie JanesFPG Family Medicine CastaliaStart: 01-02-2023 End: 25-47-0779arfdxinobuYgccx [employer] Other [employer] Other Start: 21-81-5550Qazjhy outpatient visit 15 minutes Ramon Santos [facility] [place]Start: 12-05-2022 End: 04-98-1741dpfsperxqhMjbfd [employer] Other [place] [employer] Other Start: 09-38-4995Qpsofh outpatient visit 15 minutes Ramon BuckjohanJANETEmiliano Family Medicine [place]Start: 11-02-2022 End: 34-12-1035twbyjfaxhiAwmfx [facility] Other [facility] [employer] Other Start: 59-99-3763Sdqhowjld encounterBrybrandie Danielle [facility] [place]Start: 09-04-2022 End: 59-87-3121tvfwsjzoccGhzejlinaju Shelbi Other [place] [employer] Other Start: 89-21-4801Yyidwhgma encounterChristopher AvendanoFPG Pulmonary DiseaseStart: 08-29-2022 End: 23-79-4357zorilkcvjxMX Ramon Ruiz Work Phone: [facility] Work Phone: Start: 08-29-2022 End: 45-23-1370Qpraibw encounter procedureDO Ramon Ruiz Work Phone: [facility] Work Phone: Start: 08-21-2022 End: 06-63-4051xhyaadzoesCtmrg [facility] Other [facility] [employer] Other Start: 00-00-2545Gubbnlcmw encounterBrybrandie Danielle Family Medicine [place]Start: 06-15-2022 End: 83-34-8559wgbpeqxwauOrpck Kuns Other [facility] [employer] Other start: 93-29-9740Uttjhg outpatient visit 15 minutes Ramon Danielle [facility] [place]aliaStart: 06-07-2022 End: 81-77-1648uyoppurursAZ Ramon Ruiz Work Phone: [facility] Work Phone: Start: 06-07-2022 End: 50-93-5948Dvyhfdg encounter procedureDO Ramon Ruiz Work Phone: [facility] [place] Work Phone: Start: 06-05-2022 End: 59-17-2173nvvkvddqcvLmtshimmufk Shelbi Other [employer] Other Start: 99-85-1228Xodoim outpatient visit 15 minutes Nicole Ortiz [facility] ClydeStart: 22-48-5204Rsrpwnmqt encounter Nate FalconG Pulmonary DiseaseStart: 05-19-2022 End: 91-49-7980zrpmudvpwlNnrcy Kuns Other [employer] [place] Other Start: 32-17-4443Nmuahyjjy encounterRamon Santos Family Medicine [place]Start: 05-03-2022 End: 43-45-0561lobrtyurzlTxgft Kuns Other [employer] [place] Other Start: 48-47-2560Ebeytk outpatient visit 15 minutes Ramon CabreraG Family Medicine [place]Start: 03-28-2022 End: 93-58-6554xuuelrpfguIntpzzwewnp Shelbi Other [employer] [place] Other Start: 50-22-0687Wsitmp outpatient visit 15 minutes Christopher AvendanoFPG Pulmonary DiseaseStart: 18-37-4639Qwvlas outpatient visit 25 minutesRamon RuizFPG Family Medicine [place]aliaStart: 03-20-2022 End: 98-67-0705xnefphtezoMrwcn Kuns Other [place] [employer] Other Start: 88-61-1052Lwapcrtfh encounterBrybrandie CabreraG Family Medicine [place]aliaStart: 03-02-2022 End: 35-82-9656gtvlnfenvjDvycskghvzc Shelbi Other [place] Other Start: 94-41-2486Qwrtkjwup encounterChristopher AvendanoFPG Pulmonary DiseaseStart: 12-01-2021 End: 20-89-9256syxqtxidbqKwgij Kuns Other [employer] [place] Other Start: 90-94-5972Ggbmym outpatient visit 15 minutes Ramon BuckMariluG Family Medicine [place]Start: 11-01-2021 End: 97-03-8010wlmznwqxyyWqwbfnipfzb Shelbi Other [employer] [place] Other Start: 13-62-2104Wnjtft outpatient visit 15 minutes Ramon BuckjohanFPG Family Medicine [place]Start: 62-30-3476Oayzzdazz encounter Christopher AvendanoFPG Pulmonary DiseaseStart: 10-26-2021 End: 71-22-2805xhabbyzlvvCvqwn Kuns Other [employer] [place] Other Start: 55-71-2690Kakeofdng encounterChidibrandie RuizFPG Family Medicine [place]Start: 10-12-2021 End: 99-38-6304umjrilahplHstehnpuxxs Shelbi Other noSapho Other Start: 50-01-1919Xxhxdysmz encounterChristopher AvendanoFPG Pulmonary DiseaseStart: 06-07-2021 End: 04-72-5070oiqpspypayLobht Kuns Other [place] Other Start: 10-08-1727Jhdvmyyff encounterBrybrandie Santos Family Medicine [place]Start: 05-30-2021 End: 18-66-0588crfltpwdelJzvdh Kuns Other [facility] [employer] Other Start: 16-15-7348Lvmsti outpatient visit 15 minutes Ramonbrandie CabreraG Family Medicine [place]Start: 04-28-2021 End: 65-02-8655slzazggvssMdwth Kuns Other [facility] [employer] Other Start: 13-51-5964Oievvpijz encounterBrybrandie CabreraG Family Medicine [place]Start: 04-19-2021 End: 08-74-7328rnskfpnodoDqddxmbtoyc Shelbi Other [facility] [employer] Other Start: 14-35-3162Zsocyzchx encounterChristopher AvendanoFPG Pulmonary DiseaseStart: 04-07-2021 End: 56-28-5232busecbdbckWjyqb Kuns Other [facility] [employer] Other Start: 48-38-4955Osqoptqwz encounterBrybrandie CabreraG Family Medicine [place]Start: 95-58-1356Uxxnlm outpatient visit 25 minutes Christopher AvendanoFPG Pulmonary DiseaseStart: 12-10-8148Fhefih outpatient visit 15 minutesRamon SaraG Family Medicine [place]aliaStart: 02-13-2017 End: 77-87-4637VhhaspgfreNXAM R [facility]Start: 01-23-2017 End: 07-10-6638SxqnjejffkFCBC R [facility] CampusStmans[place]: 12-22-2016 End: 16-55-5002DvgfxbwssxAMRB R [facility] CampusStart: 12-05-2016 End: 24-26-3839TkttoeyxjsUIBW Tamra NAVARROWayne [facility]Care Main CampusStart: 11-21-2016 End: 62-81-5991FwezsidikbZFOTIV [facility] Procedures DateProcedureProcedure DetailPerforming ClinicianStart: 07-14-6465Nreretyoy cultureLindsay Diana MULTI PUNCH OPERATOR Work Phone: Start: 79-94-7537Vvrpz chlamydia trachomatis amplified probe tqLindsay N Diana MULTI PUNCH OPERATOR Work Phone: Start: 06-28-0114Aomiw trichomonas vaginalis amplified probe techLindsay N Diana MULTI PUNCH OPERATOR Work Phone: Start: 01-91-6594Bafab dip stick/tablet rgnt auto w/o microscopyLindsay N Diana MULTI PUNCH OPERATOR Work Phone: Start: 88-22-1326Abwrhqowi Ariela Browne PA Work Phone: Start: 03-63-1244Nzonp streptococcus group a amplified probe tqAnthony Emiliano Eddyallyson DO Work Phone: Start: 11-07-1552Hwlwf Strep (POC)Ramon Janejohan DO Work Phone: Start: 12-93-7130Qeukwimqo mammographyBrybrandie Ruiz DO Work Phone: Start: 14-27-2893Twnvksspoeyfuhj of left breastRamon Ruiz DO Work Phone: Start: 53-94-9700Ztzyeksczrup with endometrial ablationDO Ramon Ruiz Work Phone: Start: 47-14-0484Uoatv Strep (POC)Start: 06-30-2023 Quick Strep (POC)H/O: sectionS/P C-sectionDO Ramon Ruiz Work Phone: H/O: surgeryHistory of repair of rectoceleComment on above:08/2022 Dr. Hernandez Plan of Treatment DateCare ActivityDetailAuthorStart: 01-21-2026 End: 55-25-8014Nhvapak encounter xpqktegle17/24/2026 3:45 PM EDT Office Visit YULIETJohan Gilbert PB [address] [place] [id number] Tariq Andrew MD [address] [place] [address] NOMJohan Gilbert OBGYNStart: 01-14-2025 End: 61-64-0641Uxcjhtjqm B virus surface Ag [Presence] in Serum or Plasma by ImmunoassayHepatitis B surface antigen Lab Routine Screen for STD (sexually transmitted disease) STD exposure Cervicitis and endocervicitis Vaginitis and vulvovaginitis Expected: 01/14/2025 (Approximate), Expires: 01/14/2026[facility] HealthcareComment on above:Expected: 01/14/2025 (Approximate), Expires: 01/14/2026Start: 01-14-2025 End: 66-19-8877Xcjhhucsp C virus Ab [Presence] in Serum or Plasma by Immunoassay Hepatitis C antibody Lab Routine Screen for STD (sexually transmitted disease) STD exposure Cervicitis and endocervicitis Vaginitis and vulvovaginitis Expected: 01/14/2025 (Approximate), Expires: 01/14/2026[facility] HealthcareComment on above:Expected: 01/14/2025 (Approximate), Expires: 01/14/2026Start: 01-14-2025 End: 09-29-5314NVQ-1/HIV-2 antigen/antibody combination immunoassayHIV-1 and HIV-2 antibodies Lab Routine Screen for STD (sexually transmitted disease) STD exposure Cervicitis and endocervicitis Vaginitis and vulvovaginitis Expected: 01/14/2025 (Approximate), Expires: 01/14/2026[facility] HealthcareComment on above: Expected: 01/14/2025 (Approximate), Expires: 01/14/2026Start: 01-14-2025 End: 95-79-7284KXN 1 antibody, IgGHSV 1 antibody, IgG Lab Routine Screen for STD (sexually transmitted disease) STD exposure Cervicitis and endocervicitis Vaginitis and vulvovaginitis Expected: 01/14/2025 (Approximate), Expires: 01/14[facility] HealthcareComment on above:Expected: 01/14/2025 (Approximate), Expires: 01/14/2026Start: 01-14-2025 End: 31-81-9055PRN 2 antibody, IgGHSV 2 antibody, IgG Lab Routine Screen for STD (sexually transmitted disease) STD exposure Cervicitis and endocervicitis Vaginitis and vulvovaginitis Expected: 01/14/2025 (Approximate), Expires: 01/14[facility] HealthcareComment on above:Expected: 01/14/2025 (Approximate), Expires: 01/14/2026Start: 01-14-2025 End: 97-16-7183Aewqeq Ab [Presence] in Serum by RPRRPR Lab Routine Screen for STD (sexually transmitted disease) STD exposure Cervicitis and endocervicitis Vaginitis and vulvovaginitis Expected: 01/14/2025 (Approximate), Expires: 01/14/2026[facility] HealthcareComment on above:Expected: 01/14/2025 (Approximate), Expires: 01/14/2026Start: 12-16-2024 End: 74-55-5992Odvjitb encounter /19/2025 12:45 PM EDT Office Visit [facility] [address] [place] [address] Tariq Andrew MD [address] [place] [address] [facility] OBStart: 10-21-2024 End: 82-60-1901Exhyyzi encounter xrrvpboie42/24/2025 12:50 PM EDT Office Visit [facility] [address] [place] [address] Drew Ortiz, MULTI PUNCH OPERATOR [address] [place] [address] [facility] UCComment on above:ArrivedStart: 02-15-2024 End: 69-07-3181UjngbxwcvTrumbull Memorial HospitalComprehensive metabolic 1999 panel - Serum or PlasmaTrumbull Memorial HospitalComprehenve metabolic 1999 panel - Serum or [facility] CenterGlucose measurement estimated from glycated hemoglobinTrumbull Memorial HospitalGlucose measurement estimated from glycated hemoglobinTrumbull Memorial Hospital Hemoglobin A1c/Hemoglobin.total in BloodTrumbull Memorial HospitalIGP, APT HPV,RFX 16/18,45IGP, APT HPV,RFX 16/18,45 Lab Routine Encounter for gynecological examination without abnormal finding Encounter for screening for cervical cancer Ordered: 01/14/2025[facility] Work Phone: comment on above:Ordered: 01/14/2025NuSwab Vaginitis Plus (VG+)NuSwab Vaginitis Plus (VG+) Microbiology Routine Vaginal discharge Acute vaginitis Ordered: 04/09/2024[facility] Work Phone: comment on above:Ordered: 4Patient Education Know your [facility] Work Phone: Patient [facility] Work Phone: [facility] Immunizations Immunization DateImmunizationNotesCare AejnftsuOnldwnhf77-80-6128entkdnpdy, injectable, quadrivalent, preservative freeChristopher Shelbi Other [facility]12-18-2021influenza, injectable, quadrivalent, preservative Aguila Ruiz Work Phone: [facility]12-18-2021tetanus toxoid, reduced diphtheria toxoid, and acellular pertussis vaccine, adsorbed Christopher Shelbi Other [facility]11-23-2020influenza, injectable, quadrivalent, preservative Lucie Andrew MD Work Phone: [facility] CenterLbejxcoajs74-26-5857eynfmatna, injectable, quadrivalent, preservative freeChristopher Shelbi Other [facility]04-11-2019influenza, seasonal, injectablePatient ObjectionChristopher Shelbi Other [place] [employer] Other 1281281-53-0713dgcaeqp toxoid, reduced diphtheria toxoid, and acellular pertussis vaccine, adsorbedDO Ramon Ruiz Work Phone: [facility]11-02-2009novel drzcwlgrq-Z7R1-80, preservative-free, injectableTariq Andrew MD Work Phone: [facility] CenterXbezfkxbgt87-21-8037rjrgyyzen B vaccine, pediatric or pediatric/adolescent dosageTariq Andrew MD Work Phone: [facility] CenterTyugmvlhov44-33-2860nzjvzqq, mumps and rubella virus Brenda Andrew MD Work Phone: [facility] CenterJzpsavovvn07-59-8157wupxumtwgl, tetanus toxoids and acellular pertussis vaccine, unspecified formulationTariq Andrew MD Work Phone: [facility] CenterInkliznnvr50-07-4867kmdyggtlb poliovirus vaccine, live, oralTariq Andrew MD Work Phone: [facility] CenterMdvgybbfhh61-53-0382igbfkczfkrh influenzae type b vaccine, conjugate unspecified formulationTariq Andrew MD Work Phone: [facility] CenterBrflbxiewg82-30-0601bpudgunzpt, tetanus toxoids and pertussis vaccineTariq Andrew MD Work Phone: [facility] CenterUdrwlciuub56-83-2247zywzqna, mumps and rubella virus Brenda Andrew MD Work Phone: [facility] CenterNhovvbourf11-93-2300qqsvzsdzzr, tetanus toxoids and pertussis vaccineTariq Andrew MD Work Phone: [facility] CenterOzrtulhetv53-26-7570xsxljhmjc poliovirus vaccine, live, oralTariq Andrew MD Work Phone: [facility] CenterFwfgisypga43-53-1107wbzswkxyhy, tetanus toxoids and pertussis vaccineTariq Andrew MD Work Phone: [facility] CenterHtkmblgrao45-28-0105mnehbvmzv poliovirus vaccine, live, oralTariq Andrew MD Work Phone: [facility] CenterNEGATED: Highlighted row has not occurred!22-58-8633ufnhdqnle, seasonal, injectablePatient ObjectionBrybrandie Ruiz Other [facility] Payers DatePayer CategoryPayerPolicy [id number] 2021MedicaidCARESOURCE MEDICAID CARESOURCE MEDICAID [place] [id number] 2021-Present [address] [place] [address] [id number] Health InsuranceCARESOURCE MEDICAID [id number] [id number] 2.1.12660[id number] 2.1.346822.3.579.2.1259 [id number] 2..1.427945.3.579.2.383906-02-4343Yzkojbr [id number] 2..1.681229.3.57[id number] 2..0.1.847974.3.57[id number] 2..840.1.004324.3.57[id number] 2.16.840.1.18[id number] 2.840.1.586800.3.579.2.531 [id number] 2.840.1.6[id number] 2.840.1.9[id number] 2.840.1.486451.3.579.2.531 [id number] 2.0.1.580387.3.579.2.531 Social History DateTypeDetailFacilityStart: 12-11-2023 End: 76-15-4893Woh Assigned At [facility] [employer] Other Start: 04-15-2021 End: 25-34-4416Kzakohb smoking status NHISNever smoked tobacco (finding) [facility] Foundationtart: 77-56-4723Xsn Assigned At [facility] Hospitaltart: 38-58-1267Nztpevo use and exposure Smokeless tobacco non-userNOMS HealthcareStart: 03-11-2024 End: 57-19-9228Pgjyulkhj beverage intakeCurrent drinker of alcohol (finding)[facility] HealthcareStart: 12-11-2023 End: 65-65-6462Iicapzn of Social functionNOMS HealthcareHow often to you have a drink containing alcohol?Monthly or lessNOMS HealthcareHow many standard drinks containing alcohol do you have on a typical day?1 or 2NOMS HealthcareHow often do you have 6 or more drinks on 1 occasion?Less than monthlyNOMS Healthcare Start: 79-68-1138Pznnqoz CommentCaffeine intake: 1-2 cups per day ; [facility] HealthcareStart: 14-12-6007Kkn assigned at birthNot on [facility] CenterStart: 05-20-2024 End: 70-31-9894TlrGytvho (finding)[facility] Medical Equipment Procedure CodeEquipment CodeEquipment Original TextEquipment IdentifierDates Salpingectomy, laparoscopicStress urinary incontinence surgical mesh, female [id number] FDAStart: 09-12-2022 Goals DatePatient GoalDesired Activity/State Clinical Notes 10-27-2014 to 01-14-2025 Note Date & PqiyNcnrMdwtmkjq27-56-4221 History of Present illness Narrative* Tariq Andrew MD - 01/14/2025 3:45 PM EDT Images from the original note were not included. Tariq Andrew MD Obstetrics and Gynecology Patient: Elba Coffman : 1990 (34 y.o.) Yearly Wellness Exam Date: 01/14/2025 Reason for Visit - Chief Complaint Patient presents with Gynecologic Exam LMP: spotting/ablation Left Breast US: 06/27/24 - Benign Last Pap: 12/11/23 - Neg Ablation and TL Complaints: None History of Present Illness History of Present Illness Elba presents for a routine gynecological visit. She reports experiencing slight spotting aroundthe time her period is due, though she clarifies it's not even significant enough to be considered spotting. The patient states she can sense when she is ovulating and mentions she is currently aboutto ovulate. She notes that her emotions are varied, especially during ovulation. Visit Vitals OB Status Ablation Smoking Status Never History of Present Illness, Associated Treatments and Results - OB History Para Term AB Living 4 3 3 0 1 4 SAB IAB Ectopic Multiple Live Births 0 1 0 1 4 # Outcome Date GA Lbr Biju/2nd Weight Sex Type Anes PTL Lv 4 Term 04/15/21 39w0d F CS-LTranv EPI JARED 3A Term 03/02/17 37w0d 4 lb 12.2 oz M CS-LTranv Spinal JARED 3B Term 03/02/17 37w0d 4 lb 11.8 oz F CS-LTranv Spinal JARED 2 IAB 2014 Comments: Therapeutic 1 Term 06/2009 40w0d 6 lb 3 oz F Vag-Vacuum JARED Comments: ML episiotomy Review of Systems - Constitutional: Negative. HENT: Negative. Eyes: Negative. Respiratory: Negative. Cardiovascular: Negative. Gastrointestinal: Negative. Endocrine: Negative. Genitourinary: Negative. Musculoskeletal: Negative. Skin: Negative. Allergic/Immunologic: Negative. Neurological: Negative. Hematological: Negative. Psychiatric/Behavioral: Negative. Allergies Allergen Reactions Bupropion Other Reaction(s): suicidal ideation Cat Dander Other Reaction(s): Unknown Reaction Dog Epithelium (Canis Lupus Familiaris) Other Reaction(s): Unknown Reaction Pollen Extract Other Reaction(s): Unknown Reaction Current Outpatient Medications: Asmanex, 120 Metered Doses, 220 MCG/ACT aerosol powder , INHALE 2 PUFFS BY MOUTH EVERY EVENING, Disp: , Rfl: tktzidlluw-ejtpapalnyyhf-uwhuwuta 50-325-40 MG tablet, TAKE 1 TABLET BY MOUTH 3 TIMES A DAY NEEDED FOR PAIN, Disp: , Rfl: cetirizine (ZyrTEC) 5 MG tablet, Take 5 mg by mouth in the morning., Disp: , Rfl: clonazePAM (KlonoPIN) 1 MG tablet, Take 1 mg by mouth at bedtime., Disp: , Rfl: fluticasone (Flonase) 50 MCG/ACT nasal spray, Administer 1 spray into each nostril in the morning.,Disp: , Rfl: Multiple Vitamin (Multi Vitamin) tablet, 1 (one) time each day at the same time., Disp: , Rfl: Proventil HFA 108 (90 Base) MCG/ACT inhaler, Inhale 2 puffs in the morning and 2 puffs in the evening and 2 puffs before bedtime., Disp: , Rfl: sertraline (Zoloft) 50 MG tablet, Take 50 mg by mouth in the morning., Disp: , Rfl: Spiriva Respimat 2.5 MCG/ACT inhaler, Inhale 2 puffs in the morning., Disp: , Rfl: SUMAtriptan (Imitrex) 50 MG tablet, every 12 (twelve) hours., Disp: , Rfl: topiramate (Topamax) 25 MG tablet, Take 25 mg by mouth Daily as needed., Disp: , Rfl: Past Medical History: Diagnosis Date Delivery of by section ([facility]) 2016 twins Dichorionic diamniotic twin in third trimester ([facility]) 11/21/2016 Genital warts Poor growth complicating , antepartum, second trimester, other fetus ([facility]) 01/23/2017 Therapeutic 2014 Type O blood, Rh positive Vaginal delivery ([facility]) 2009 Vulvovaginitis 11/09/2022 Past Surgical History: Procedure Laterality Date APPENDECTOMY SECTION, LOW TRANSVERSE 03/02/2017 twins SECTION, LOW TRANSVERSE 04/15/2021 IUD INSERTION 09/16/2019 [place] IUD INSERTION 08/01/2021 [place] PELVIC LAPAROSCOPY 09/12/2022 operative laparoscopy with bilateral salpingectomies, A&P repair, TVT-O, cystoscopy VACUUM ASSISTED VAGINAL DELIVERY 2009 Procedure:vaginal vacuum ML episiotomy;Disease: Family History Problem Relation Name Age of Onset Heart disease Father No Known Problems Sister No Known Problems Sister No Known Problems Sister No Known Problems Brother No Known Problems Brother Dementia Paternal Grandmother Diabetes Paternal Grandmother Mental illness Paternal Grandmother Diabetes Father's Sister No Known Problems Son No Known Problems Daughter No Known Problems Daughter No Known Problems Daughter Social History Tobacco Use Smoking Status Never Smokeless Tobacco Never Physical Exam - General appearance, mentation, extraocular movements, facial strength and movement, hearing, upper and lower extremity strength and tone, sensation to gross testing, coordination, and gait are normalor at baseline unless noted below. Physical Exam Constitutional: Appearance: Normal appearance. Genitourinary: Right Labia: No rash or lesions. Left Labia: No lesions or rash. No vaginal discharge or erythema. No vaginal prolapse present. No vaginal atrophy present. Right Adnexa: not tender and no mass present. Left Adnexa: not tender and no mass present. No cervical lesion. Uterus is not tender. Uterus is anteverted. Breasts: Right: Normal. No mass or nipple discharge. Left: Normal. No mass or nipple discharge. HENT: Head: Normocephalic and atraumatic. Cardiovascular: Rate and Rhythm: Normal rate and regular rhythm. Pulmonary: Breath sounds: Normal breath sounds. Abdominal: General: There is no distension. Palpations: Abdomen is soft. There is no mass. Tenderness: There is no abdominal tenderness. Musculoskeletal: General: Normal range of motion. Cervical back: Neck supple. Lymphadenopathy: Cervical: No cervical adenopathy. Neurological: Mental Status: She is alert and oriented to person, place, and time. Skin: General: Skin is warm and dry. Psychiatric: Mood and Affect: Mood normal. Assessment/Plan ICD-10-CM 1. Encounter for gynecological examination without abnormal finding Z01.419 2. Encounter for screening for cervical cancer Z12.4 3. 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 Cystocele, midline N81.11 6. Chronic vaginitis N76.1 7. Encounter for gynecological examination Z01.419 Pap and exam performed. Results can be found in MyChart in 7 days Return 1 year Menstrual irregularities post ablation 2023 Assessment: Patient reports experiencing light spotting around the time her period is due. She alsonotes emotional changes associated with her menstrual cycle, particularly during ovulation. The patient demonstrates awareness of her ovulation timing and associated symptoms. Plan: - Perform annual gynecological examination - Discuss menstrual cycle tracking and symptom management - Provide education on normal menstrual cycle variations and associated emotional changes STD labwork ordered per request Preventive care Assessment: Patient is due for annual gynecological screening. She expresses a preference for yearly examinations despite updated guidelines suggesting longer intervals between screenings for some tests. Plan: - Perform annual gynecological examination as per patient preference - Discuss current screening guidelines and rationale for frequency of examinations - Schedule follow-up appointment for next year's examination Assessment & Plan documented in this encounterRusk Rehabilitation [id number] Evaluation note* Author Elizabet Liang [facility] HospitalAuthoredCentral [facility] Hospital 2024 2:56pmSooner if needed, ER if concerns. The above note written by Elizabet Liang LPN, acting as human recorder, note dictated by Dr. Ramon Ruiz. [facility] Work Phone: 1(553) 223-599206-24-2025 Telephone encounter Note* Telephone Encounter - Drew Ortiz NP - 10/21/2024 4:26 PM EDT Please call patient and notify that all in house testing for G&C and Trich is negative. Continue to monitor for symptoms and follow up as needed. Thanks. [facility] Work Phone: 1(868) 946-421906-24-2025 Miscellaneous Notes* Telephone Encounter - Drew Ortiz NP - 10/21/2024 4:26 PM EDT Please call patient and notify that all in house testing for G&C and Trich is negative. Continue to monitor for symptoms and follow up as needed. Thanks. documented in this encounterRusk Rehabilitation [id number] History of Present illness Narrative* Drew Ortiz NP - 10/21/2024 12:50 PM EDT HPI: Historian of HPI: patient Elba Coffman is a 34 y.o. female who presents today to the Urgent Care with the following complaints and denials which have been present for 1 week(s) Pt had unprotected sex 1 week ago. Pt states she is not having any symptoms but just would like to be cautious. C/O Denies Symptom Comments [] [x] Vaginal discharge [] [x] Vaginal itching [] [x] dysuria [] [x] fever [] [x] Abd pain [] [x] hematuria [] [x] Urinary urgency [] [x] Urinary frequency [] [x] Urinary incontinence Additional Comments: Pt states that they are currently sexually active and that they use the following None as protection pt has not taken any OTC medications ROS: A complete system ROS was performed and negative aside from the pertinent positives noted in the HPI and PE. Visit Vitals BP 110/78 Pulse 86 Temp 96.4 F Resp 20 SpO2 98% OB Status Ablation Smoking Status Never Physical Exam Vitals reviewed. Constitutional: Appearance: Normal appearance. HENT: Head: Normocephalic and atraumatic. Mouth/Throat: Mouth: Mucous membranes are moist. Cardiovascular: Rate and Rhythm: Normal rate. Pulmonary: Effort: Pulmonary effort is normal. Genitourinary: Comments: Denies any vaginal symptoms; denies lesions/discharge Musculoskeletal: General: Normal range of motion. Cervical back: Normal range of motion and neck supple. Skin: General: Skin is warm and dry. Capillary Refill: Capillary refill takes less than 2 seconds. Neurological: General: No focal deficit present. Mental Status: She is alert. Psychiatric: Mood and Affect: Mood normal. Behavior: Behavior normal. Thought Content: Thought content normal. Judgment: Judgment normal. 1. Unprotected sex Pt presents for STI testing. She had unprotected sex 1 week ago. Pt states she is not having any symptoms, but just would like to be cautious. This was a new partner. Discussed testing in house with urine for G&C and Trich. She is agreeable. She does not wish to send urine out for STI testing at this time. She denies urinary symptoms and is finishing menses. - URINALYSIS ANALYZER TEST - CEPHEID TRICHOMONAS - CEPHEID CT/NG documented in this encounterRusk Rehabilitation [id number] History of Present illness Narrative* AZAR Laughlin - 09/29/2024 9:00 AM EDT [address] , [address] [facility], [address] P: [phone] F: [phone] HPI Historian of HPI: patient Elba Coffman is a 34 y.o. female who presents today to the Urgent Care with the following complaints and denials which have been present for 1 day(s). Pt reports runny/itchy nose, sore throat, dry cough, ear congestion. Denies fevers, chills, myalgias, sob, wheezing. Pt stated she is having allergy sx C/O Denies Symptom Comments [x] [] Runny Nose [] [x] Difficulty Swallowing [x] [] Sore Throat [x] [] Cough [x] [] Ear Pain [] [x] Fever [] [x] Chills [x] [] Nasal Congestion [] [x] Myalgia [] [x] Sinus Pain [] [x] Sinus Pressure Additional Comments: pt has taken tylenol OTC medication with relief A complete system ROS was performed and negative aside from the pertinent positives noted in the HPI and PE. IH Testing: PHYSICAL EXAM General Examination: alert, oriented, normal affect, well-appearing, in no acute distress, well developed, well nourished. Head: normocephalic, atraumatic Eyes: sclera non-icteric Ears: auditory canal clear, tympanic membrane intact, clear Nose: Slight congestion noted Oral Cavity: no lesions, mucosa moist Throat: clear, symmetrical rise of soft palate and uvula, no erythema or exudate Lymph Nodes: no cervical adenopathy Heart: regular rate and rhythm, S1, S2 normal Lungs: clear to auscultation bilaterally. No wheezes, rales, rhonchi. Extremities: no edema, no cyanosis Psych: alert, oriented, cognitive function intact, cooperative with exam. TREATMENT PLAN 1. Upper respiratory tract infection, unspecified type (Primary) Discussed diagnosis and management, likely viral vs allergic etiology and symptomatic treatment including OTC Tylenol, mucinex dm, flonase, mucinex, using humidifier, rest, and increased hydration. Patient advised to return for immediate evaluation if symptoms worse, change, or do not improve. Follow-up with PCP in 5-7 days or sooner if needed. All questions/concerns addressed. Patient voiced understanding and agreement with the plan. 2. Pharyngitis, unspecified etiology Strep and flu neg, reviewed with pt. - STREP DNA PROBE documented in this [facility]04-17-2025 Evaluation note* Author Elizabet [facility] 2024 12:52pmThe above note written by Elizabet Liang LPN, acting as human recorder, note dictated by Dr. Ramon Ruiz. [facility] Work Phone: 1(107) 771-266504-17-2025 Evaluation note* Author [facility] 2024 12:52pmThe above note written by Elizabet Liang LPN, acting as human recorder, note dictated by Dr. Ramon Ruiz. Author Elizabet Liang [facility] 2024 2:56pmSooner if needed, ER if concerns. The above note written by Elizabet Liang LPN, acting as human recorder, note dictated by Dr. Ramon Ruiz. [facility] Work Phone: 1(990) 964-863501-21-2025 Evaluation note* Author [facility] 2024 1:10pmThe above note written by Franchesca [facility] acting as human recorder, note dictated by Dr. Ramon Ruiz. [facility] Work Phone: 1(694) 767-444801-21-2025 Evaluation note* Author [facility] 2024 12:10pmThe above note written by Franchesca [facility] GOLDBERG acting as human recorder, note dictated by Dr. Ramon Ruiz. Author Willow Andrew [facility] 2023 4:39pmSooner if needed, the ER if concerns,The above note written by Willow Andrew LPN acting as human recorder, note dictated by Dr. Ramon Ruiz [facility] Work Phone: 1(214) 192-764812-11-2024 History of Present illness Narrative* Tariq Andrew MD - 04/09/2024 8:30 AM EST Images from the original note were not included. Tariq Andrew MD Obstetrics and Gynecology Patient: Elba Coffman : 1990 (33 y.o.) Exam Date: 04/09/2024 Reason for Visit - Chief Complaint Patient presents with Vaginal Discharge Complaints of vagina discharge that is like mucus. Sometimes it s a tint of green then it s like a yellow color when she wipes. The patient reports experiencing a funny discharge following surgery. She mentions that the discharge was present before the surgery as well, but it has persisted after the procedure. The patient denies any itching associated with the discharge. She also reports feeling cold during the visit. Visit Vitals OB Status Having periods Smoking Status Never History of Present Illness, Associated Treatments and Results - OB History Para Term AB Living 4 3 3 0 1 4 SAB IAB Ectopic Multiple Live Births 0 1 0 1 4 # Outcome Date GA Lbr Biju/2nd Weight Sex Type Anes PTL Lv 4 Term 04/15/21 39w0d F CS-LTranv EPI JARED 3A Term 03/02/17 37w0d 4 lb 12.2 oz M CS-LTranv Spinal JARED 3B Term 03/02/17 37w0d 4 lb 11.8 oz F CS-LTranv Spinal JARED 2 IAB 2014 Comments: Therapeutic 1 Term 06/2009 40w0d 6 lb 3 oz F Vag-Vacuum JARED Comments: ML episiotomy Constitutional: Negative. HENT: Negative. Eyes: Negative. Respiratory: Negative. Cardiovascular: Negative. Gastrointestinal: Negative. Endocrine: Negative. Genitourinary: Negative. Musculoskeletal: Negative. Skin: Negative. Allergic/Immunologic: Negative. Neurological: Negative. Hematological: Negative. Psychiatric/Behavioral: Negative. Allergies Allergen Reactions Bupropion Other Reaction(s): suicidal ideation Cat Hair Extract Other Reaction(s): Unknown Reaction Dog Epithelium (Canis Lupus Familiaris) Other Reaction(s): Unknown Reaction Pollen Extract Other Reaction(s): Unknown Reaction Current Outpatient Medications: Asmanex, 120 Metered Doses, 220 MCG/ACT aerosol powder , INHALE 2 PUFFS BY MOUTH EVERY EVENING, Disp: , Rfl: cetirizine (ZyrTEC) 5 MG tablet, Take 5 mg by mouth in the morning., Disp: , Rfl: clonazePAM (KlonoPIN) 1 MG tablet, Take 1 mg by mouth at bedtime., Disp: , Rfl: fluticasone (Flonase) 50 MCG/ACT nasal spray, Administer 1 spray into each nostril in the morning.,Disp: , Rfl: Multiple Vitamin (Multi Vitamin) tablet, 1 (one) time each day at the same time., Disp: , Rfl: phentermine (Adipex-P) 37.5 MG tablet, TAKE 1 TABLET BY MOUTH EVERY DAY before breakfast for 30 days, Disp: , Rfl: Proventil HFA 108 (90 Base) MCG/ACT inhaler, Inhale 2 puffs in the morning and 2 puffs in the evening and 2 puffs before bedtime., Disp: , Rfl: sertraline (Zoloft) 50 MG tablet, Take 50 mg by mouth in the morning., Disp: , Rfl: Spiriva Respimat 2.5 MCG/ACT inhaler, Inhale 2 puffs in the morning., Disp: , Rfl: SUMAtriptan (Imitrex) 50 MG tablet, every 12 (twelve) hours., Disp: , Rfl: topiramate (Topamax) 25 MG tablet, Take 25 mg by mouth Daily as needed., Disp: , Rfl: Past Medical History: Diagnosis Date Delivery of by section 2016 twins Dichorionic diamniotic twin in third trimester 11/21/2016 Genital warts Poor growth complicating , antepartum, second trimester, other fetus 01/23/2017 Therapeutic 2013 Type O blood, Rh positive Vaginal delivery 2009 Vulvovaginitis 11/09/2022 Past Surgical History: Procedure Laterality Date APPENDECTOMY SECTION, LOW TRANSVERSE 03/02/2017 twins SECTION, LOW TRANSVERSE 04/15/2021 IUD INSERTION 09/16/2019 [facility]ena IUD INSERTION 08/01/2021 [facility] PELVIC LAPAROSCOPY 09/12/2022 operative laparoscopy with bilateral salpingectomies, A&P repair, TVT-O, cystoscopy VACUUM ASSISTED VAGINAL DELIVERY 2009 Procedure:vaginal vacuum ML episiotomy;Disease: Family History Problem Relation Name Age of Onset Heart disease Father No Known Problems Sister No Known Problems Sister No Known Problems Sister No Known Problems Brother No Known Problems Brother Dementia Paternal Grandmother Diabetes Paternal Grandmother Mental illness Paternal Grandmother Diabetes Father's Sister No Known Problems Son No Known Problems Daughter No Known Problems Daughter No Known Problems Daughter Social History Tobacco Use Smoking Status Never Smokeless Tobacco Never Physical Exam - General appearance, mentation, extraocular movements, facial strength and movement, hearing, upper and lower extremity strength and tone, sensation to gross testing, coordination, and gait are normalor at baseline unless noted below. Physical Exam Constitutional: Appearance: Normal appearance. Genitourinary: Right Labia: No rash. Left Labia: No rash. No vaginal discharge. No vaginal prolapse present. No vaginal atrophy present. No cervical lesion. HENT: Head: Normocephalic and atraumatic. Neurological: Mental Status: She is alert and oriented to person, place, and time. Psychiatric: Mood and Affect: Mood normal. Behavior: Behavior normal. Pasty white discharge Wm nve No WBCs or clue cells Assessment/Plan ICD-10-CM 1. Vaginal discharge N89.8 1. Abnormal vaginal discharge: Nuswab ordered. Terazol vaginal cream ordered Await Nuswab results 4. General health maintenance: - Plan: a) Encourage the patient to maintain a healthy lifestyle, including regular exercise and a balanceddiet. b) Recommend routine check-ups. c) Address any additional concerns as they arise. documented in this [facility]12-05-2024 Evaluation note* Author Franchesca Contreras [facility] 2024 12:10pmThe above note written by Franchesca GOLDBERG acting as human recorder, note dictated by Dr. Ramon Ruiz. Author Willow Andrew [facility] 2023 4:39pmSooner if needed, the ER if concerns,The above note written by Willow Andrew LPN acting as human recorder, note dictated by Dr. Ramon Ruiz [facility] Work Phone: 1(346) 177-148911-13-2024 History of Present illness Narrative* Tariq Andrew MD - 03/12/2024 12:43 PM EST uti documented in this [facility]11-12-2024 History of Present illness Narrative* Tariq Andrew MD - 03/11/2024 3:30 PM EST Images from the original note were not included. Tariq Andrew MD Obstetrics and Gynecology Patient: Elba Coffman : 1990 (33 y.o.) Exam Date: 03/11/2024 Reason for Visit - Chief Complaint Patient presents with Post-op Visit 2 week post op ablation and D&C procedure. Pt states that she is still having spotting and light cramping but over all is doing well. The patient reports experiencing significant pain after a recent procedure, stating that it was worse than childbirth. She mentions having taken pain medication left over from a previous procedure tomanage the discomfort. The patient also reports having developed a yeast infection, for which she has already obtained medication. She is unsure about her recent menstrual cycle, as it coincided with the procedure and post-procedure bleeding. The patient experienced some cramping and heavier than usual bleeding, but it was tolerable. She is advised to report back on her next menstrual cycle to assess any changes. Visit Vitals OB Status Having periods Smoking Status Never History of Present Illness, Associated Treatments and Results - OB History Para Term AB Living 4 3 3 0 1 4 SAB IAB Ectopic Multiple Live Births 0 1 0 1 4 # Outcome Date GA Lbr Biju/2nd Weight Sex Type Anes PTL Lv 4 Term 04/15/21 39w0d F CS-LTranv EPI JARED 3A Term 03/02/17 37w0d 4 lb 12.2 oz M CS-LTranv Spinal JARED 3B Term 03/02/17 37w0d 4 lb 11.8 oz F CS-LTranv Spinal JARED 2 IAB 2014 Comments: Therapeutic 1 Term 06/2009 40w0d 6 lb 3 oz F Vag-Vacuum JARED Comments: ML episiotomy Constitutional: Negative. HENT: Negative. Eyes: Negative. Respiratory: Negative. Cardiovascular: Negative. Gastrointestinal: Negative. Endocrine: Negative. Genitourinary: Negative. Musculoskeletal: Negative. Skin: Negative. Allergic/Immunologic: Negative. Neurological: Negative. Hematological: Negative. Psychiatric/Behavioral: Negative. Allergies Allergen Reactions Bupropion Other Reaction(s): suicidal ideation Cat Hair Extract Other Reaction(s): Unknown Reaction Dog Epithelium (Canis Lupus Familiaris) Other Reaction(s): Unknown Reaction Pollen Extract Other Reaction(s): Unknown Reaction Current Outpatient Medications: Asmanex, 120 Metered Doses, 220 MCG/ACT aerosol powder , INHALE 2 PUFFS BY MOUTH EVERY EVENING, Disp: , Rfl: cetirizine (ZyrTEC) 5 MG tablet, Take 5 mg by mouth in the morning., Disp: , Rfl: clonazePAM (KlonoPIN) 1 MG tablet, Take 1 mg by mouth at bedtime., Disp: , Rfl: fluticasone (Flonase) 50 MCG/ACT nasal spray, Administer 1 spray into each nostril in the morning.,Disp: , Rfl: Multiple Vitamin (Multi Vitamin) tablet, 1 (one) time each day at the same time., Disp: , Rfl: phentermine (Adipex-P) 37.5 MG tablet, TAKE 1 TABLET BY MOUTH EVERY DAY before breakfast for 30 days, Disp: , Rfl: Proventil HFA 108 (90 Base) MCG/ACT inhaler, Inhale 2 puffs in the morning and 2 puffs in the evening and 2 puffs before bedtime., Disp: , Rfl: sertraline (Zoloft) 50 MG tablet, Take 50 mg by mouth in the morning., Disp: , Rfl: Spiriva Respimat 2.5 MCG/ACT inhaler, Inhale 2 puffs in the morning., Disp: , Rfl: SUMAtriptan (Imitrex) 50 MG tablet, every 12 (twelve) hours., Disp: , Rfl: topiramate (Topamax) 25 MG tablet, Take 25 mg by mouth Daily as needed., Disp: , Rfl: Past Medical History: Diagnosis Date Delivery of by section 2016 twins Dichorionic diamniotic twin in third trimester 11/21/2016 Genital warts Poor growth complicating , antepartum, second trimester, other fetus 01/23/2017 Therapeutic 2014 Type O blood, Rh positive Vaginal delivery 2010 Vulvovaginitis 11/09/2022 Past Surgical History: Procedure Laterality Date APPENDECTOMY SECTION, LOW TRANSVERSE 03/02/2017 twins SECTION, LOW TRANSVERSE 04/15/2021 IUD INSERTION 09/16/2019 Kyleena IUD INSERTION 08/01/2021 [facility] PELVIC LAPAROSCOPY 09/12/2022 operative laparoscopy with bilateral salpingectomies, A&P repair, TVT-O, cystoscopy VACUUM ASSISTED VAGINAL DELIVERY 2009 Procedure:vaginal vacuum ML episiotomy;Disease: Family History Problem Relation Name Age of Onset Heart disease Father No Known Problems Sister No Known Problems Sister No Known Problems Sister No Known Problems Brother No Known Problems Brother Dementia Paternal Grandmother Diabetes Paternal Grandmother Mental illness Paternal Grandmother Diabetes Father's Sister No Known Problems Son No Known Problems Daughter No Known Problems Daughter No Known Problems Daughter Social History Tobacco Use Smoking Status Never Smokeless Tobacco Never Physical Exam - General appearance, mentation, extraocular movements, facial strength and movement, hearing, upper and lower extremity strength and tone, sensation to gross testing, coordination, and gait are normalor at baseline unless noted below. Physical Exam Constitutional: Appearance: Normal appearance. Genitourinary: Right Labia: No rash. Left Labia: No rash. No vaginal discharge. No vaginal prolapse present. No vaginal atrophy present. No cervical lesion. HENT: Head: Normocephalic and atraumatic. Neurological: Mental Status: She is alert and oriented to person, place, and time. Psychiatric: Mood and Affect: Mood normal. Behavior: Behavior normal. Normal post op vaginal drainage Assessment/Plan ICD-10-CM 1. Encounter for postoperative care Z48.89 2. Menorrhagia with regular cycle N92.0 3. Vaginal bleeding N93.9 4. Pelvic pain in female R10.2 5. 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 Post-procedure pain: - Plan: a) No further intervention needed at this time. b) Monitor for any recurrence of significant pain. 2. Yeast infection: - Plan: a) Continue current [id number]-rwtwnof medication for treatment. b) Follow up if symptoms do not improve or worsen. 3. Menstrual cycle irregularity: - Plan: a) Monitor next menstrual cycle and report any abnormalities through the patient portal. b) Follow up in November for a routine Pap smear.. 5. Follow-up: - Plan: a) Schedule a follow-up appointment in November for a routine Pap smear. b) Contact the office if any concerns or complications arise before the scheduled follow-up appointment. documented in this encounterRusk Rehabilitation [id number] Evaluation note* Author Elizabet Liang [facility] HospitalAuthoredSeptember 2023 12:55pmThe above note written by Elizabet Liang LPN, acting as human recorder, note dictated by Dr. Ramon Ruiz. [facility] Work Phone: 1(858) 879-900809-25-2024 History of Present illness Narrative* Tariq Andrew MD - 01/23/2024 9:00 AM EDT Images from the original note were not included. Tariq Andrew MD Obstetrics and Gynecology Patient: Elba Coffman : 1990 (33 y.o.) Exam Date: 01/23/2024 Reason for Visit - Chief Complaint Patient presents with Consult Patient would like to discuss having a Ablation due to hx of heavy/painful menses. Tubal ligation completed 08/2022. Heavy menses with with severe cramping and quarter size clots Pt with GI complaints with OCP Visit Vitals OB Status Having periods Smoking Status Never History of Present Illness, Associated Treatments and Results - OB History Para Term AB Living 4 3 3 0 1 4 SAB IAB Ectopic Multiple Live Births 0 1 0 1 4 # Outcome Date GA Lbr Biju/2nd Weight Sex Type Anes PTL Lv 4 Term 04/15/21 39w0d F CS-LTranv EPI JARED 3A Term 03/02/17 37w0d 4 lb 12.2 oz M CS-LTranv Spinal JARED 3B Term 03/02/17 37w0d 4 lb 11.8 oz F CS-LTranv Spinal JARED 2 IAB 2014 Comments: Therapeutic 1 Term 06/2009 40w0d 6 lb 3 oz F Vag-Vacuum JARED Comments: ML episiotomy Constitutional: Negative. HENT: Negative. Eyes: Negative. Respiratory: Negative. Cardiovascular: Negative. Gastrointestinal: Negative. Endocrine: Negative. Genitourinary: Negative. Musculoskeletal: Negative. Skin: Negative. Allergic/Immunologic: Negative. Neurological: Negative. Hematological: Negative. Psychiatric/Behavioral: Negative. Allergies Allergen Reactions Bupropion Other Reaction(s): suicidal ideation Cat Hair Extract Other Reaction(s): Unknown Reaction Dog Epithelium (Canis Lupus Familiaris) Other Reaction(s): Unknown Reaction Pollen Extract Other Reaction(s): Unknown Reaction Current Outpatient Medications: Asmanex, 120 Metered Doses, 220 MCG/ACT aerosol powder , INHALE 2 PUFFS BY MOUTH EVERY EVENING, Disp: , Rfl: cetirizine (ZyrTEC) 5 MG tablet, Take 5 mg by mouth in the morning., Disp: , Rfl: clindamycin (Cleocin) 2 % vaginal cream, Insert 1 applicator into the vagina at bedtime for 7 days,Disp: 40 g, Rfl: 2 clonazePAM (KlonoPIN) 1 MG tablet, Take 1 mg by mouth at bedtime., Disp: , Rfl: fluticasone (Flonase) 50 MCG/ACT nasal spray, Administer 1 spray into each nostril in the morning.,Disp: , Rfl: Multiple Vitamin (Multi Vitamin) tablet, 1 (one) time each day at the same time., Disp: , Rfl: phentermine (Adipex-P) 37.5 MG tablet, TAKE 1 TABLET BY MOUTH EVERY DAY before breakfast for 30 days, Disp: , Rfl: Proventil HFA 108 (90 Base) MCG/ACT inhaler, Inhale 2 puffs in the morning and 2 puffs in the evening and 2 puffs before bedtime., Disp: , Rfl: sertraline (Zoloft) 50 MG tablet, Take 50 mg by mouth in the morning., Disp: , Rfl: Spiriva Respimat 2.5 MCG/ACT inhaler, Inhale 2 puffs in the morning., Disp: , Rfl: SUMAtriptan (Imitrex) 50 MG tablet, every 12 (twelve) hours., Disp: , Rfl: terconazole (Terazol 7) 0.4 % vaginal cream, Insert 1 applicator into the vagina at bedtime for 7 days, Disp: 45 g, Rfl: 2 topiramate (Topamax) 25 MG tablet, Take 25 mg by mouth Daily as needed., Disp: , Rfl: Past Medical History: Diagnosis Date Delivery of by section 2016 twins Dichorionic diamniotic twin in third trimester 11/21/2016 Genital warts Poor growth complicating , antepartum, second trimester, other fetus 01/23/2017 Therapeutic 2014 Type O blood, Rh positive Vaginal delivery 2009 Vulvovaginitis 11/09/2022 Past Surgical History: Procedure Laterality Date APPENDECTOMY SECTION, LOW TRANSVERSE 03/02/2017 twins SECTION, LOW TRANSVERSE 04/15/2021 IUD INSERTION 09/16/2019 Kyleena IUD INSERTION 08/01/2021 [facility]ena PELVIC LAPAROSCOPY 09/12/2022 operative laparoscopy with bilateral salpingectomies, A&P repair, TVT-O, cystoscopy VACUUM ASSISTED VAGINAL DELIVERY 2009 Procedure:vaginal vacuum ML episiotomy;Disease: Family History Problem Relation Name Age of Onset Heart disease Father No Known Problems Sister No Known Problems Sister No Known Problems Sister No Known Problems Brother No Known Problems Brother Dementia Paternal Grandmother Diabetes Paternal Grandmother Mental illness Paternal Grandmother Diabetes Father's Sister No Known Problems Son No Known Problems Daughter No Known Problems Daughter No Known Problems Daughter Social History Tobacco Use Smoking Status Never Smokeless Tobacco Never Physical Exam - General appearance, mentation, extraocular movements, facial strength and movement, hearing, upper and lower extremity strength and tone, sensation to gross testing, coordination, and gait are normalor at baseline unless noted below. Physical Exam Constitutional: Appearance: Normal appearance. HENT: Head: Normocephalic and atraumatic. Neurological: Mental Status: She is alert and oriented to person, place, and time. Psychiatric: Mood and Affect: Mood normal. Behavior: Behavior normal. Assessment/Plan ICD-10-CM 1. Menorrhagia with regular cycle N92.0 2. Vaginal bleeding N93.9 3. Pelvic pain in female R10.2 1. Dysmenorrhea - Patient reported trying the prescribed OCs but experienced side effects such as diarrhea and nausea. - Plan: a) Proceed with endometrial ablation as discussed. b) Schedule the procedure within the month, ensuring it is not during the patient's menstrual period. c) Provide pre-operative instructions and discuss potential risks, including thoracic oblate infection, orthic damage, repeat ablation, and possible need for hysterectomy. Pt has watched movie and signed consent Procedure to be scheduled documented in this [facility]09-20-2024 History of Present illness Narrative* Tariq Andrew MD - 01/18/2024 6:20 PM EDTyeast rx sent documented in this [facility]01-23-2024 Evaluation note* Encounter Date Diagnosis Assessment Notes Treatment Notes Treatment Clinical Notes Apr, Cough (ICD-10 - R05) Apr,Somnambulism (ICD-10 - F51.3) [facility] Other 10-05-2023 Evaluation note* Encounter Date Diagnosis Assessment Notes Treatment Notes Treatment Clinical Notes Jan, BMI 30.0-30.9,adult (ICD-10 - Z6 8.30) Patient has done very well on the Adipex and has lost more than the required 5% weight loss to be able to continue after the initial three months. She does admit to noticing mood swings in this last month but she admits she is going through a break up from the father of her three youngest children who she had been with for seven years. She is doing okay regarding the breakup and was encouraged tobreaking the pills in half to see if she notices any improvement with her mood. Encouraged otc laxatives/stool softeners and increased water intake to offset the constipation. She voiced understanding and is in agreement. Refill e-scribed. Jan,Obesity (ICD-10 - E66.9) Encouraged patient to continue with diet and exercise. [facility] Other 09-05-2023 Evaluation note* Encounter Date Diagnosis Assessment Notes Treatment Notes Treatment Clinical Notes Dec, BMI 32.0-32.9,adult (ICD-10 - Z6 8.32) 9lb weight loss noted finishing the first month of Adipex. She is doing well and drinking lots of water. She has surpassed the required 5% to be able to continue past the initial three months. Refille-scribed. Encouraged she continue with weight loss efforts. Dec,Obesity (ICD-10 - E66.9) Encouraged patient to continue with diet and exercise. [facility] Other 08-08-2023 Evaluation note* Encounter Date Diagnosis Assessment Notes Treatment Notes Treatment Clinical Notes Nov, Obesity, unspecified (ICD-10 - E 66.9) Encouraged patient to continue with diet and weight loss efforts. Nov,ody mass index [BMI] 33.0-33.9, adult (ICD-10 - Z68.33) Patient has done well previously on Adipex though she feels she gains the weight back soon after she is done with the regimen. I advised the prescribing rules have changed and if she was to lose at least 8.5lbs she would be eligible to do another three months. I am in agreement she start this and encouraged she increase exercise, continue with fiber supplements, and increased water intake. Medication e-scribed. [facility] Other 07-06-2023 Evaluation note* Encounter Date Diagnosis Assessment Notes Treatment Notes Treatment Clinical Notes Oct, Depression (ICD-10 - F32.9) [facility] Other 05-08-2023 Evaluation note* Encounter Date Diagnosis Assessment Notes Treatment Notes Treatment Clinical Notes August, Somnambulism (ICD-10 - F51.3) [facility] Other 02-16-2023 Evaluation note* Encounter Date Diagnosis Assessment Notes Treatment Notes Treatment Clinical Notes May, Eustachian salpingitis, unspecif ied (ICD-10 - H68.009) Pt has been having issues with her ears for about two months now. I advsied pt would benefit from examination by ENT. She was agreeable, therefore referral was initiated today. We will continue to monitor. May,Non-recurrent acute suppurative otitis media of both ears without spontaneous rupture of tympanic membranes (ICD-10 - H66.003) May,cute sinusitis, recurrence not specified, unspecified location (ICD-10 - J01.90) Pt is to finish out the above medications, and she was referred to ENT. We will continue to monitor. May,Hyperlipidemia, unspecified hyperlipidemia type (ICD-10 - E78.5) Review of blood work today, which reveals no signs of anemia, leukemia, or infection. Liver, kidney, and thyroid function are normal, as well as electrolytes. Encouraged to watch diet and increase exercise regimen; we will continue to monitor. May,Hyperglycemia (ICD-10 - R73.9) Review of pt's blood work, and I advised her A1C is elevated to the point of being borderline pre-diabetic. She is to monitor her diet and reduce carbs. [facility] Other 02-06-2023 Evaluation note* Encounter Date Diagnosis Assessment Notes Treatment Notes Treatment Clinical Notes May, Somnambulism (ICD-10 - F51.3) [facility] Other 02-06-2023 Evaluation note* Encounter Date Diagnosis Assessment Notes Treatment Notes Treatment Clinical Notes May, Sore throat (ICD-10 - J02.9) May,cute sinusitis, recurrence not specified, unspecified location (ICD-10 - J01.90)Sinusitis home care material was printed Drink plenty of fluids, get plenty of rest.Take the amoxicilin with clavulanate and prednisone as prescribed until gone. Use the nasal inhaler as prescribed until your symptoms improve. Follow up with your PCP if no improvement in 2- 3days May,ontact with and (suspected) exposure to covid-19 (ICD-10 - Z20.822) [facility] Other 01-04-2023 Evaluation note* Encounter Date Diagnosis Assessment Notes Treatment Notes Treatment Clinical Notes Apr, Neoplasm of uncertain behavior o f skin (ICD-10 - D48.5) 5 skin tags around the neck area that will be removed today via shave. No speciman sent to path as none suspicious. Area cleansed with alcohol prep pad and injected with 1% lidocaine with epi. All excised and hyphercated to control bleeding. KAVEH and bandaid applied Apr,Eustachian salpingitis, unspecified (ICD-10 - H68.009) Patient does have retraction of the bilateral TM. I want her to continue to Flonase. Add Afrin nasal spray. Ordering Omnicef 300 mg BID for 10 days. Try Mucinex D Apr,Non-recurrent acute suppurative otitis media of both ears without spontaneous rupture of tympanic membranes (ICD-10 - H66.003) Patient does have bilateral OM. Retracted TM. I am ordering Omnicef 300 mg BID for 10 days. Apr,Hypoglycemia (ICD-10 - E16.2) Patient reports episodic spells of shakiness when she does not eat well. I have concerns for possible DM. I will order K1 for screening and see her back to review Apr,ain (ICD-10 - R52) Five skin tags removed from neck area. [facility] Other 11-29-2022 Evaluation note* Encounter Date Diagnosis Assessment Notes Treatment Notes Treatment Clinical Notes Feb, Cough (ICD-10 - R05) Feb,omnambulism (ICD-10 - F51.3) [facility] Other 11-29-2022 Evaluation note* Encounter Date Diagnosis Assessment Notes Treatment Notes Treatment Clinical Notes Feb, Dizziness (ICD-10 - R42) I did prescribe the above medication to see if this does improve the vertigo. If this does not improve, we will discuss a head CT or MRI. Feb,Headache (ICD-10 - R51.9) We will continue to monitor. Feb,kin tag (ICD-10 - L91.8) A total of three skin tags located on the right clavicle, there is one tag we will send for shave biopsy that is 1cm. The other two tags we will not send out as they are angioma's, these are 0.5cm. Vonnie noted one angioma of the left clavicle that we will not send out but will shave, this one is also 0.5cm. Patient reports these as bothersome and painful. Feb,ngioma (ICD-10 - D18.00) Noted upon examination. I advised the patient these are begnin but will remove at later day by shave of right clavicle and left. [facility] Other 11-03-2022 Evaluation note* Encounter Date Diagnosis Assessment Notes Treatment Notes Treatment Clinical Notes Feb, Somnambulism (ICD-10 - F51.3) [facility] Other 08-04-2022 Evaluation note* Encounter Date Diagnosis Assessment Notes Treatment Notes Treatment Clinical Notes Nov, BMI 34.0-34.9,adult (ICD-10 - Z6 8.34) Patient presents with a six pound weight loss and reports quite a bit of energy and motivation since starting the Adipex. She denies any palpitations or shortness of breath. I am in agreement with continuing her Adipex regimen. Refill provided. OARRS ran and reviewed. Nov,besity (ICD-10 - E66.9) Encouraged patient to continue with weight loss efforts. She is exercising using a jump rope. [facility] Other 07-05-2022 Evaluation note* Encounter Date Diagnosis Assessment Notes Treatment Notes Treatment Clinical Notes Oct, Somnambulism (ICD-10 - F51.3) [facility] Other 07-05-2022 Evaluation note* Encounter Date Diagnosis Assessment Notes Treatment Notes Treatment Clinical Notes Oct, BMI 35.0-35.9,adult (ICD-10 - Z6 8.35) The patient has been on adipex in the past with good results. Therefore we will start the patient on the adipex regimen. Encouraged patient to increase water intake. In house EKG performed in the office with normal results. Oct,besity (BMI 35.0-39.9 without comorbidity) (ICD-10 - E66.01) Encouraged to watch diet and increase exercise regimen; we will continue to monitor. [facility] Other 06-29-2022 Evaluation note* Encounter Date Diagnosis Assessment Notes Treatment Notes Treatment Clinical Notes Sep, Depression (ICD-10 - F32.9) [facility] Other 10-06-2021 Evaluation note* Encounter Date Diagnosis Assessment Notes Treatment Notes Treatment Clinical Notes Jan, Cough (ICD-10 - R05) Jan,omnambulism (ICD-10 - F51.3) [facility] Other 10-01-2021 Evaluation note* Encounter Date Diagnosis Assessment Notes Treatment Notes Treatment Clinical Notes Jan, Anxiety (ICD-10 - F41.9) I am in agreement with increasing the above medication to 50 mg . Pt is to continue with the above medication and we will continue to monitor. [id number] weeks gestation of (ICD-10 - Z3A.29) The patient states her pregnacy is going well , encourged to continue following with city superintendent as scheduled. Jan,Hoarseness (ICD-10 - R49.0) Examination performed with no signs of infection or thrush . The patient has been started on new inhalers as prescribed by pulmonogist. Discussion was had Dulera is likely causing her hoarseness due to the steroids. I strongly recommend she gargle and rinse her mouth well after use. [facility] Other 06-30-2015 History general Narrative - Reported* Type Description Date Medical History 10/27/14 - Normal Colonoscopy - Dr. Edwards Medical HistoryFamily history of Crohn's diseaseMedical History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]- Dr Cisneroscal Historygenital wartsMedical Historymigraines Medical HistoryHx depressionMedical HistoryLiletta 10/2017Medical Vcpmqkz03/21/21 Covid -19Surgical HistoryappendectomySurgical Historyc-section - [id number] Hospitalization Historychildbirth [facility] Other 06-30-2015 History general Narrative - Reported* Type Description Date Medical History 10/27/14 - Normal Colonoscopy - Dr. Edwards Medical HistoryFamily history of Crohn's diseaseMedical History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]- Dr Cisneroscal Historygenital wartsMedical Historymigraines Medical HistoryHx depressionMedical HistoryLiletta 10/2017Medical Xltldhl59/21/21 Covid -19Surgical HistoryappendectomySurgical Historyc-section - -53-05 Surgical Historyc-section 1 girl12//22[facility] Other 06-30-2015 History general Narrative - Reported* Type Description Date Medical History 10/27/14 - Normal Colonoscopy - Dr. Edwards Medical HistoryFamily history of Crohn's diseaseMedical History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]- Dr Stephens Historygenital wartsMedical Historymigraines Medical HistoryHx depressionMedical HistoryLiletta 10/2017Medical Wtsxiip47/21/21 Covid -19Surgical HistoryappendectomySurgical Historyc-section - [id number] Surgical Historyc-section 1 girl04/15/22Surgical Historytubal ligation and rectocele and bladder prolapse mesh put in Dr. Hernandez08/2022Hospitalization Historychildbirth [facility] [employer] Other Evaluation noteNo InformationNortEll[facility] [employer] Other Evaluation noteNortEllwood Medical Center [employer] Other Evaluation noteNo assessment information available [facility] Work Phone: Evaluation note* Diagnosis Onset Date Resolution Status Sore throat acuteStrep pharyngitisnoneactiveAcute streptococcal pharyngitisacuteSore throat acute [facility] Work Phone: Evaluation note* Author Willow Andrew [facility] HospitalAuthoredMarch 2023 4:22pmSooner if needed, the ER if concerns,The above note written by Willow Andrew LPN acting as human recorder, note dictated by Dr. Ramon Ruiz [facility] Work Phone: Evaluation note* Diagnosis Onset Date Resolution Status Cough variant asthma acuteSomnambulismacute [facility] Work Phone: Evaluation note* Author Elizabet Liang [facility] HospitalAuthoredSeptember 2023 12:55pmThe above note written by Elizabet Liang LPN, acting as human recorder, note dictated by Dr. Ramon Ruiz. 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 encounter [facility]* Diagnosis Dysuria- Primary documented in this encounter [facility]* Diagnosis Acute vaginitis- Primary Unspecified vaginitis and vulvovaginitis Vaginal discharge Leukorrhea, not specified as infective documented in this encounter [facility]* Diagnosis Acute vaginitis- Primary Unspecified vaginitis and vulvovaginitis documented in this encounter [facility]* Diagnosis Menorrhagia with regular cycle Vaginal bleeding Other specified noninflammatory disorder of vagina Pelvic pain in female Unspecified symptom associated with female genital organs 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 encounter [facility] note* Diagnosis Upper respiratory tract infection, unspecified type- Primary Pharyngitis, unspecified etiology documented in this encounter [facility] note* Diagnosis Unprotected sex Problems related to high-risk sexual behavior documented in this encounter [facility]* Diagnosis Encounter for gynecological examination without abnormal finding Encounter for screening for cervical cancer Menorrhagia with regular cycle Post-tubal ligation syndrome Cystocele, midline Chronic vaginitis Unspecified vaginitis and vulvovaginitis Encounter for gynecological examination Screen for STD (sexually transmitted disease) Screening examination for venereal disease STD exposure Cervicitis and endocervicitis Vaginitis and vulvovaginitis [facility] Narrative - ReportedTurkey [facility] Other Hospital Discharge instructions Additional Instructions DISCHARGE INSTRUCTIONS FOR DILATION & CURETTAGE (D & C) -Today, outpatient surgery has become a vital link in the health care program. Outpatient D&C is a safe and common practice and this paper is designed to help you know what to expect when you go home and under what circumstances you should give me a call. I will have all of your labs and surgery reports for you when you come in for your follow-up. -To reach me in an emergency, call the office at [[phone]]. TODAY -Take it easy the rest of the day. If you have received a general anesthetic or injections to help you relax for the local procedure you should not drive a car for at least 8 hours after surgery to make sure all of the medication has worn off. ACTIVITIES -There are no restrictions on your normal activities. Generally, you may expect to go back to work the next day unless I have given you other instructions. You should shower daily and practice good personal habits to offset the chance of infection. Avoid intercourse for one week after your surgery and you should not douche. Most women experience minimal disruption of their normal routines. BLEEDING -The amount of bleeding after a D&C varies somewhat. Some women have very little requiring onlya light pad for a few days. Other women may bleed similar to a heavy period for a week or so. [You may wear Tampax if you wish, but be sure to change often.] Do not be alarmed if you expel some clots. -If I have given you a prescription to control bleeding, get it filled on your way home, if possible, and take all the pills according to the directions on the bottle. These pills may increase the amount of your flow and give you cramping similar to first day menstrual cramps. Two Motrin every 6 hours or Anaprox every 12 hours and a heating pad should be sufficient to control any discomfort you may have. If your bleeding becomes bright red and becomes heavy enough that you have used one full pad an hour times 4 hours, I want you to give me a call. Also, if within the first week after surgery you experience chills, fever, and a change in the odor, color, or character of your drainage, you may be developing an infection and you should call me. You may expect your next period anywhere from 2 to 6 weeks after your D&C. CONTROL -Do not assume that you cannot get soon after a D&C. Practice your usual method of control beginning with the first time you have intercourse after you have surgery. If you are taking control pills, please continue them unless told otherwise. DIET -Any diet is permissible FOLLOW UP -Please call the office at [phone] to arrange an appointment to see [facility] Work Phone: Reason for referral (narrative)No reason for referral information availableWayne Hospital Work Phone: Summary Purpose Family History No Family History Records Found Relationship Condition Age at Onset Recorded Date/T anna father Myocardial infarction Unknown History of coronary artery stent placementUnknownBorderline diabetes mellitus UnknownHigh blood cholesterolUnknownNot SpecifiedEssential tremorUnknown OsteoporosisUnknownDepressionUnknownAnxietyUnknown Relationship Condition Age at Onset Recorded Date/T anna father Myocardial infarction Unknown History of coronary artery stent placementUnknownBorderline diabetes mellitus UnknownHigh blood cholesterolUnknownNot SpecifiedEssential tremorUnknown OsteoporosisUnknownDepressionUnknownAnxietyUnknownfatherHeart diseaseUnknown Myocardial infarctionUnknowngrandparentDeceasedUnknowngrandparentDiabetes mellitusUnknownDeceasedUnknownNot SpecifiedAnxietyUnknownFamily history of mental disorderUnknown Relationship Condition Age at Onset Recorded Date/T anna father Myocardial infarction Unknown History of coronary artery stent placementUnknownBorderline diabetes mellitus UnknownHigh blood cholesterolUnknownHeart diseaseUnknownmotherEssential tremor UnknownOsteoporosisUnknownDepressionUnknownAnxietyUnknownFamily history of mental disorderUnknowngrandparentDiabetes mellitusUnknownDeceasedUnknown Advance Directives No Advanced Directives Records Found Advance Directive Response Recorded Date/ Time Advance Directives No December 7:32pm Advance Directive Response Recorded Date/ Time Advance Directives No December 8:32pm Advance Directive Response Recorded Date/ Time Advance Directives No June 29 1:08pm Advance Directive Response Recorded Date/ Time Advance Directives No June 29 12:08pm Advance Directive Response Recorded Date/ Time Advance Directives No May 12:29pm Advance Directive Response Recorded Date/ Time Advance Directives No May 1:29pm Reason for Referral Reason 08/18/22 @ 10:00am Niharika or Debbie Please- Evaluate and treat Diagnosis 1 Eustachian salpingit is, unspecified (H68.009) Diagnosis 2 Non-recurrent acute suppurative otitis media of both ears without spontaneous rupture of tympanic membranes (H66.003) Diagnosis 3 Acute sinusitis, rec urrence not specified, unspecified location (J01.90) Referral Organization [facility] [place] Referring Provider First Name Ramon Referring Provider Last Name Sara Referring Provider Specialty Family Prac hamzah Referred Organization [facility] Referred Provider Arya Ac Referred Address ,[place], [place],[address] Referred Provider Specialty Otolaryngolo gy Referral Priority Routine Referral Appointment Date 2022-08-18 General Notes Fore, Caroline M 023 11:05:20 AM >Received today. [facility] request us to send the referral P2P and they will call and schedule patient. Referral was sent P2P Caroline Rojas 06/23/2022 09:23:55 AM >Spoke with Lizzeth at [facility] E[facility] Office and patient has not been scheduled yet. They have not created the referral yet for Dr. Ac to review Willow Andrew 06/29/2022 09:59:34 AM > Pt called to check in on referral status, Called over to ENT's office, spoke with Iveth she stated she didn't have an update either but will put it to the attention of the nurse. Homer Rojassonia Pham 06/29/2022 10:42:18 AM >Spoke with Rosina at [facility] and patient is not scheduled yet Caroline Rojas 07/07/2022 09:42:09 AM >Spoke with Lizzeth at [facility] ENT Office and patient has been scheduled for 08/18/22 @ 10:00am Chief Complaint and Reason for Visit Chief Complaint E16.2 Cystocele, Rectocele, Pelvic Pain, Elective Steriz Chief Complaint Amb Documentation Sore throat congestion, sore throat, chillsReason for VisitSore throat Strep pharyngitis Acute streptococcal pharyngitis Sore throat Chief Complaint Amb Documentation Sore throat congestion, sore throat, chills follow upReason for VisitSore throat Strep pharyngitis Acute streptococcal pharyngitis Sore throat Acute streptococcal pharyngitis Hyperglycemia Hyperlipidemia Obesity Oral thrush Chief Complaint Amb Documentation e78.5 Chief Complaint Amb Documentation e78.5 6 Month f/u- Cough and SomnambulismReason for VisitCough variant asthma Somnambulism Chief Complaint e78.5 6 Month f/u- Cough and Somnambulism review labsReason for VisitCough variant asthma Somnambulism Anemia Hyperglycemia Hyperlipidemia Sleep disorder Chief Complaint e78.5 6 Month f/u- Cough and Somnambulism review labs D64.9 AUB,Pelvic Pain, Menorrhagia w/Irregular CycleReason for VisitCough variant asthma Somnambulism Anemia Hyperglycemia Hyperlipidemia Sleep disorder Chief Complaint Admit Date Headaches April 03, 2024 1 2:49pm r73.9 d64.9 April 03, 2024 1 :35pm 4 month f/u-telephone call only May 20, 2024 12:04pm Reason for Visit Admit Date Anemia April 03, 2024 1 2:49pm Hyperglycemia April 03, 2024 1 2:49pm Migraines April 03, 2024 1 2:49pm Anemia May 20, 2024 1 2:04pm Hyperglycemia May 20, 2024 1 2:04pm Migraines May 20, 2024 1 2:04pm Vertigo May 20, 2024 1 2:04pm Chief Complaint Admit Date Headaches April 03, 2024 1 2:49pm r73.9 d64.9 April 03, 2024 1 :35pm 4 month f/u-telephone call only May 20, 2024 12:04pm n64.4 n63.0 2024 8:52am Chief Complaint Admit Date 4 month f/u-telephone call only May 20, 2024 12:04pm n64.4 n63.0 2024 8:52am Sore throat July 30, 2024 4:34 pm Reason for Visit Admit Date Anemia May 20, 2024 1 2:04pm Hyperglycemia May 20, 2024 1 2:04pm Migraines May 20, 2024 1 2:04pm Vertigo May 20, 2024 1 2:04pm Sore throat July 30, 2024 4:34 pm Chief Complaint Admit Date Sore throat July 30, 2024 4:34 pm f/u migraines August 14, 2024 12: 25pm white spots throat, hurts to swallow, mu cus October 05, 2024 1:22pm Reason for Visit Admit Date Sore throat July 30, 2024 4:34 pm Migraines August 14, 2024 12: 25pm Obesity August 14, 2024 12: 25pm Sore throat October 05, 2024 1:22p m Chief Complaint Admit Date Sore throat July 30, 2024 4:34 pm f/u migraines August 14, 2024 12: 25pm white spots throat, hurts to swallow, mu cus October 05, 2024 1:22pm Ear pain, here tuesday October 08, 2024 1: 39pm Reason for Visit Admit Date Sore throat July 30, 2024 4:34 pm Migraines August 14, 2024 12: 25pm Obesity August 14, 2024 12: 25pm Sinusitis October 05, 2024 1:22p m Sore throat October 05, 2024 1:22p m Chief Complaint Admit Date Sore throat July 30, 2024 4:34 pm f/u migraines August 14, 2024 12: 25pm white spots throat, hurts to swallow, mu cus October 05, 2024 1:22pm Ear pain, here tuesday October 08, 2024 1: 39pm 2 month f/u October 23, 2024 1:42 pm Reason for Visit Admit Date Sore throat July 30, 2024 4:34 pm Migraines August 14, 2024 12: 25pm Obesity August 14, 2024 12: 25pm Sinusitis October 05, 2024 1:22p m Sore throat October 05, 2024 1:22p m Rupture of right tympanic membrane October 08, 2024 1:39pm Obesity October 23, 2024 1:42 pm BMI 34.0-34.9,adult October 23, 2024 1:42 pm Ruptured ear drum October 23, 2024 1:42 pm Chief Complaint Admit Date white spots throat, hurts to swallow, mu cus October 05, 2024 1:22pm Ear pain, here tuesday October 08, 2024 1: 39pm 2 month f/u October 23, 2024 1:42 pm CEA: 6 mo f/u Cough, Somnambulism December 04, 2024 10:58am Reason for Visit Admit Date Sinusitis October 05, 2024 1:22p m Sore throat October 05, 2024 1:22p m Rupture of right tympanic membrane October 08, 2024 1:39pm Obesity October 23, 2024 1:42 pm BMI 34.0-34.9,adult October 23, 2024 1:42 pm Ruptured ear drum October 23, 2024 1:42 pm Cough variant asthma December 04, 2024 10 :58am Somnambulism December 04, 2024 10: 58am Chief Complaint Admit Date 2 month f/u October 23, 2024 1:42 pm CEA: 6 mo f/u Cough, Somnambulism December 04, 2024 10:58am Sore throat January 18, 2025 12:19pm Reason for Visit Admit Date Obesity October 23, 2024 1:42 pm BMI 34.0-34.9,adult October 23, 2024 1:42 pm Ruptured ear drum October 23, 2024 1:42 pm Cough variant asthma December 04, 2024 10 :58am Somnambulism December 04, 2024 10: 58am Additional Source Comments INFORMATION SOURCE (unrecogn ized section and content) DATE CREATED AUTHOR 10/23/2017 [facility] DATE CREATED AUTHOR AUTHOR'S ORGANIZ ATION 06/30/2024 [facility] DATE CREATED AUTHOR AUTHOR'S ORGANIZ ATION 02/20/2025 [facility] EPIC REASON FOR VISIT (unrecogniz ed section and content) ReasonCommentsPost-op VisitReasonCommentsVaginal DischargeReasonCommentsConsult ReasonCommentsGynecologic Exam Care Teams (unrecognized sec tion and content) Team Status: Active Member Role Status Dates Ramon Ruiz DO Primary Care Provider Active Team Status: Inactive Member Role Status Dates Ramon Ruiz DO Primary Care Provide r, Attending Provider Active Start: December 10, 2023 End: December 10, 2023 Team Status: Inactive Member Role Status Dates Ramon Ruiz DO Primary Care Provider Active Sta rt: January 01, 2024 End: December 31Jorge Neil ProviderActive Start: January 01, 2024 End: January 01, 2024 Team Status: Inactive Member Role Status Randal Ruiz DO Primary Care Provide r, Attending Provider Active Start: January 24, 2024 End: January 24, 2024 Team Status: Active Member Role Status Dates Ramon Ruiz DO Primary Care Provider Active Sta rt: June 18, 2023 Haritha Priest ProviderActiveStart: June 18, 2023 Team Status: Inactive Member Role Status Dates Ramon Ruiz DO Primary Care Provider Active Sta rt: June 30, 2023 End: June 29Brian Patel ProviderActiveStart: June 30, 2023 End: June 30, 2023 Team Status: Inactive Member Role Status Dates Ramon Ruiz DO Primary Care Provider Active Sta rt: July 23, 2023 End: July 22Marilou Causey ProviderActiveStart: July 23, 2023 End: July 23, 2023 Team Status: Inactive Member Role Status Dates Ramon Ruiz DO Primary Care Provider, Attending Provi neetu Active Team Status: Inactive Member Role Status Dates Ramon Ruiz DO Primary Care Provider Active Jeremy Hernandez DOAttervin ProviderActive Team Status: Inactive Member Role Status Dates Ramon Ruiz DO Primary Care Provide r, Attending Provider Active Start: July 26, 2023 End: July 26, 2023 Team Status: Active Member Role Status Dates Ramon Ruiz DO Primary Care Provider Active Sta rt: October 10, 2023 Munirara Benitez Haritha ProviderActiveStart: October 10, 2023 Team Status: Inactive Member Role Status Dates Ramon Ruiz DO Primary Care Provider Active Sta rt: February 15, 2024 End: February 14enolJorge Zaidi ProviderActiveStart: February 15, 2024 End: February 15, 2024Team MemberRelationshipSpecialtyStart DateEnd Date Ramon Ruiz MD [address] [place], [place] [phone] PCP - General10/11/22Team MemberRelationshipSpecialtyStart DateEnd Date Ramon Ruiz MD [address] [place], [place] [phone] PCP - General10/11/22Team MemberRelationshipSpecialtyStart DateEnd Date Ramon Ruiz MD [address] [place] [address], [phone] PCP - General10/11/22Team MemberRelationshipSpecialtyStart DateEnd Date Ramon Ruiz MD [address] [place] [address], [phone] PCP - General10/11/22 Team Status: Inactive Member Role Status Dates Ramon Ruiz DO Primary Care Provide r, Attending Provider Active Start: April 03, 2024 End: April 03, 2024 Team Status: Inactive Member Role Status Dates Ramon Ruiz DO Primary Care Provide r, Attending Provider Active Start: May 20, 2024 End: May 20, 2024 Team Status: Inactive Member Role Status Dates Ramon Ruiz DO Primary Care Provider Active Sta rt: 2024 End: June 27, 2024Jorge Fisher ProviderActiveStart: 2024 End: 2024 Team Status: Inactive Member Role Status Dates Ramon Ruiz DO Primary Care Provider Active Sta rt: July 30, 2024 End: July 30baldomero Rao APRNAttenradha ProviderActiveStart: July 30, 2024 End: July 30, 2024Team MemberRelationshipSpecialtyStart DateEnd Date Ramon Ruiz DO [facility]10/11/22 Team Status: Inactive Member Role Status Dates Ramon Ruiz DO Primary Care Provide r, Attending Provider Active Start: August 14, 2024 End: August 14, 2024 Team Status: Inactive Member Role Status Dates Ramon Ruiz DO Primary Care Provider Active Sta rt: October 05, 2024 End: October 05, 2024Pagiovanny Arguello APRN [employer] OPERATOR-CAttending ProviderActive Start: October 05, 2024 End: October 05, 2024 Team Status: Inactive Member Role Status Dates Ramon Ruiz DO Primary Care Provider Active Sta rt: October 08, 2024 End: October 08, 2024Marilou Marinelli ProviderActiveStart: October 08, 2024 End: October 08, 2024Team MemberRelationshipSpecialtyStart DateEnd Date Ramon Ruiz DO [facility]10/11/22 Team Status: Inactive Member Role Status Dates Ramon Ruiz DO Primary Care Provider Active Sta rt: August 14, 2024 End: August 14jany Ruiz DOAttending ProviderActiveStart: August 14, 2024 End: August 14, 2024 Team Status: Inactive Member Role Status Dates Ramon Ruiz DO Primary Care Provider Active Sta rt: October 23, 2024 End: October 23jany Ruiz DOAttending ProviderActiveStart: October 23, 2024 End: October 23, 2024Team MemberRelationshipSpecialtyStart DateEnd Date Ramon Ruiz DO [facility]10/11/22Team MemberRelationshipSpecialtyStart DateEnd Date Ramon Ruiz DO [facility]10/11/22 Team Status: Inactive Member Role Status Dates Ramon Ruiz DO Primary Care Provider Active Sta rt: December 04, 2024 End: December 04huseyin Mario , MDAttending ProviderActiveStart: December 04, 2024 End: December 04, 2024Team MemberRelationshipSpecialtyStart DateEnd Date Ramon Ruiz DO [facility]10/11/22 Team Status: Inactive Member Role Status Dates Ramon Ruiz DO Primary Care Provider Active Sta rt: January 18, 2025 End: January 18Marilou Causey ProviderActiveStart: January 18, 2025 End: January 18, 2025 Goals (unrecognized section and content) Goals may be documented in a n alternate section FOR RECORDS PERTAINING TO PATIENTS WHO ARE OR HAVE BEEN ENROLLED IN A CHEMICAL DEPENDENCY/SUBSTANCEABUSE PROGRAM, SOME INFORMATION MAY BE OMITTED. This clinical summary was aggregated from multiple sources. Caution should be exercised in using it in the provision of clinical care. This summary normalizes information from multiple sources, and as a consequence, information in this document may materially change the coding, format and clinical context of patient data. In addition, data may be omitted in some cases. CLINICAL DECISIONS SHOULD BE BASED ON THE PRIMARY CLINICAL RECORDS. [facility] [email or web address] [facility]. provides no warranty or guarantee of the accuracy or completeness of information in this document.
--- OUTSIDE RECORDS SUMMARY | 2025-02-26 18:49 | XMS_ITS | Clinical Summary ---
Author Organization [facility] Address [address] [place] [address] Phone Care Team Providers Care Medical Art Therapist Name Role Phone Unavailable Primary Care Provider Unavailabl e Social History Tobacco UseTypesPacks/DayYears UsedDateSmoking Tobacco: Never Assessed CommentsUnknownSex and Gender InformationValueDate RecordedSex Assigned at Not on fileLegal LyjNhxkxm62/26/2022 5:42 AM ESTGender IdentityNot on fileSexual OrientationNot on file Plan of Treatment Health MaintenanceDue DateLast DoneCommentsLipid Panel1988MMR Vaccines (1 of 1 - Standard series)1989Hepatitis C Nckzylsth73/28/2007Hepatitis B Vaccines (1 of 3 - 19+ 3-dose series)2007HPV/Tgeofa9406/27/2009DTaP/Tdap/Td Vaccines (1 - Tdap)2010HPV Vaccines (1 - 3-dose standard series)2015 Yearly Adult Tkhodeqi10/04//06/2021, 11/14/2018Influenza Vaccine (#1) 5Cervical Cancer Gruixmmkl46/03/2025Pap Smear11/30//06/2021, 11/14/2018COVID-19 Vaccine (1 - season)2024Zoster Vaccines (1 of 2)2038HIV IbonnnkqpLpmddmdzz70/16/2021HIB VaccinesAged OutNo longer eligible based on patient's age to complete this topicHepatitis A VaccinesAged OutNo longer eligible based on patient's age to complete this topicIPV Vaccines Aged OutNo longer eligible based on patient's age to complete this topic Meningococcal VaccineAged OutNo longer eligible based on patient's age to complete this topicPneumococcal Vaccine: Pediatrics and At-Risk Adult Patients Aged OutNo longer eligible based on patient's age to complete this topic Rotavirus VaccinesAged OutNo longer eligible based on patient's age to complete this topic
--- OUTSIDE RECORDS SUMMARY | 2025-02-26 18:50 | XMS_ITS | Encounter Summary ---
Author Organization [facility] Address [address] [place] [address] Care Team Providers Care Associate Marketing Manager Name Role Phone Buckjohan Ramon Alpa PADILLA Primary Care Provider [phone] Encounter Details DateTypeDepartmentCare Team (Latest Contact Info)Ncadvhrkpkd30/22/2025Travel Social History Tobacco UseTypesPacks/DayYears UsedDateSmoking Tobacco: NeverSmokeless Tobacco: NeverAlcohol UseStandard Drinks/WeekCommentsYes0 (1 standard drink = 0.6 oz pure alcohol)Caffeine intake: 1-2 cups per day ; coffeeAUDIT-CAnswerDate RecordedQ1: How often do you have a drink containing alcohol?Monthly or less12/11/2023Q2: How many drinks containing alcohol do you have on a typical day when you are drinking?1 or Q3: How often do you have six or more drinks on one occasion?Less than /13/2024PHQ-2AnswerDate RecordedPatient Health Questionnaire-2 Esxek002/11/2024CommentsNoSex and Gender Information ValueDate RecordedSex Assigned at BirthNot on fileLegal UmjFrqica86/15/2023 6:36 PM EDTGender IdentityNot on fileSexual OrientationNot on filedocumented as of this encounter Plan of Treatment DateTypeDepartmentCare Team (Latest Contact Info)Zvavgyquovl50/23/2026 1:00 PM EDTOffice Visit [facility] [address] [place] [address] Tariq Hill MD [address] [place] [address] documented as of this encounter Visit Diagnoses Not on filedocumented in this encounter Care Teams Team MemberRelationshipSpecialtyStart DateEnd Date Ramon Ruiz DO PCP - General10/11/22documented as of this encounter
--- OUTSIDE RECORDS SUMMARY | 2025-02-26 18:50 | XMS_ITS | Clinical Summary ---
Author Organization [facility] Address [address] [place], [place] [address] Care Team Providers Care Radio Commentator Name Role Phone Ramon Ruiz DO Primary Care Provider [phone] Medications MedicationSigDispense QuantityRefillsLast FilledStart DateEnd DateStatus folic acid 1 mg tablet Take 3 tablets by mouth once daily.02/10/2017Active PLUS DHA 27 mg iron-1 mg -312 mg-250 mg cmpk take 1 tablet and 1 capsule by mouth once a ppm118Active cetirizine (ZYRTEC) 10 mg tablet Take 1 tablet by mouth once daily.02/09/2017Active Active Problems ProblemNoted DateDiagnosed DatePoor growth complicating , antepartum, second trimester, other fetus01/23/2017Dichorionic diamniotic twin in third /25/2017 Resolved Problems ProblemNoted DateDiagnosed DateResolved DatePolyhydramnios in second trimester Social History Tobacco UseTypesPacks/DayYears UsedDateSmoking Tobacco: Never Assessed CommentsUnknownSex and Gender InformationValueDate RecordedSex Assigned at Not on fileLegal GonQwgjks44/29/2017 10:31 AM EDTGender IdentityNot on file Sexual OrientationNot on file Last Filed Vital Signs Vital SignReadingTime TakenCommentsBlood Pressure--Pulse--Temperature-- Respiratory Rate--Oxygen Saturation--Inhaled Oxygen Concentration--Ydeqsk94.4 kg (168 lb 8 oz)02/13/2017 1:57 PM CHFEaqdez216.4 cm (5')02/13/2017 1:57 PM EDTBody Mass Index32.9102/13/2017 1:57 PM EDT Plan of Treatment Health MaintenanceDue DateLast DoneCommentsAnxiety Ulpaomtov94/28/2007Depression Fmnjagijl75/28/2007HIV Sjicrxjww01/28/2007Hepatitis C Xvrjlgwup46/28/2007 DTaP,Tdap,Td Vaccine (1 - Tdap)2007Hepatitis B Vaccine (1 of 3 - 19+ 3- dose series)2007Cervical Cancer Tspthpcan34/28/2010HPV Vaccine (1 - 3-dose SCDM series)2015Covid-19 Vaccine (1 - 2024- season)2024Influenza Vaccine (#1)2024 Insurance Care Teams Team MemberRelationshipSpecialtyStart DateEnd Date Ramon Ruiz DO [address] [place] [address] PCP - GeneralFamily Medicine10/26/16
--- OUTSIDE RECORDS SUMMARY | 2025-02-26 18:50 | XMS_ITS | Encounter Summary ---
Author Organization [facility] Address [address] [place] [address] Care Team Providers Care Bait Maker Name Role Phone Buckjohan Ramon Apla PADILLA Primary Care Provider [phone] Encounter Details DateTypeDepartmentCare Team (Latest Contact Info)Rtbnitczutd21/28/2025Results Follow-Up [facility] [address] [place] [address] Tariq Hill MD [address] [place] [address] Pathology Report Social History Tobacco UseTypesPacks/DayYears UsedDateSmoking Tobacco: NeverSmokeless [...] or more drinks on one occasion?Less than mhlepom7012/11/2023HQ-2AnswerDate RecordedPatient Health Questionnaire-2 Qfzlv648/11/2024CommentsNoSex and Gender Information ValueDate RecordedSex Assigned at BirthNot on fileLegal UmvUeuvaz43/15/2023 6:36 PM EDTGender IdentityNot on fileSexual OrientationNot on filedocumented as of this encounter Miscellaneous Notes * Telephone Encounter - Chuyita Meza - 02/25/2025 9:12 AM EDT Patient reviewed info via FolderBoyhart, no questions asked, closing encounter, if questions arise pleaseforward to JR * Result Encounter Note - Tariq Hill MD - 02/24/2025 8:11 AM EDT LGSIL Repeat 6m documented in this encounter Plan of Treatment DateTypeDepartmentCare Team (Latest Contact Info)Jvmhiivpqbn93/23/2026 1:00 PM EDTOffice Visit [facility] [address] [place] [address] Tariq Hill MD [address] [place] [address] documented as of this encounter Visit Diagnoses Not on filedocumented in this encounter Care Teams Team MemberRelationshipSpecialtyStart DateEnd Date Ramon Ruiz DO PCP - General10/11/22documented as of this encounter
--- OUTSIDE RECORDS SUMMARY | 2025-02-26 18:50 | XMS_ITS | Patient Health Record ---
Author Organization [employer] [facility] Address [address] [place] [address] Care Team Providers Care Dining Room Busser Name Role Phone Dr. Daron Kidd Primary Care Provider Allergies Allergen (clinical drug ingredient) Drug/Non Drug Allergy documented on EMR Reaction Allergy Type Onset Date Status cat,dog and pollen (uncoded)UnknownAllergyActiveWellbutrinsuicidal ideationDrug AllergyActive Reason For Referral No Information Medications Medication SIG (Take, Route, Frequency, Duration) Notes Start Date End Date Status Terazol 7 0.4 % Cream 1 applicatorful at bedtime Vaginal Once a day; Duration: 7 Day 07/07/2018Not-Taking/PRNVitamin B-6 25 MG Tablet1 tablet Orally Once a day; Duration: 30 day(s)Not-Taking/PRNKlonoPIN 1 MG Tablet1 tablet Orally Once a day ActiveImitrex 50 MG Tablet1 tablet as needed Orally Twice a dayActiveSprintec 28 0.25-35 MG-MCG Tablet1 tablet Orally Once a day; Duration: 28 day(s) Not-Taking/PRNVitamin B12 100 MCG Tabletas directed OrallyNot-Taking/PRNTopamax 25 MG Tablet2 tablet Orally BID; Duration: 30 day(s)Not-Taking/PRNFluticasone Propionate 50 MCG/ACT Suspension1 spray in each nostril Nasally Twice a day; Duration: 30 day(s)Not-Taking/PRNNystatin 980301 UNIT/GM Creamas directed applied topically as directed four times a day; Duration: 10 day(s) Not-Taking/PRNTriNessa (28) 0.18/0.215/0.25 MG-35 MCG Tablet1 tablet Orally Once a day; Duration: 28 day(s)11/15/2018ActiveSprintec 28 0.25-35 MG-MCG Tablet1 tablet Orally Once a day; Duration: 28 day(s)05/18/2014Not-Taking/PRN Triamcinolone Acetonide 0.1 % Cream1 application to affected area Externally Twice a day; Duration: 30 day(s)11/20/2018Not-Taking/PRN Social History Tobacco Use: Social History Observation Description Date Details (start date - stop date) Never Smoker NA - NA Social History GeneralSocial InfoQuestionAnswerNotesTransition of Care:ER/UC/hospital since last office visit?NoSubstance abuse/mental health issues of patient/family Patient -DeniesAbility to understand healthcare/treatmentPatient:GoodTobacco Screen:Are you a:never smokerSocial/Support Concerns:Patient:NoAlcohol Screening:Did you have a drink containing alcohol in the past year?Yes? How often did you have a drink containing alcohol in the past year?Monthly or less (1 point)? How many drinks did you have on a typical day when you were drinking in the past year?1 or 2 (0 points)? How often did you have six or more drinks on one occasion in the past year?Never (0 points)Qcdurq6NtaoawihjshqrbFerzmoyy Behaviors affecting healthPoor/Risky Behaviors:Denies-Communication Barrier: Language Barrier?:No Problems Problem Type SNOMED Code ICD Code Onset Dates Problem Status W/U Status Risk Notes Problem Vulvovaginitis (disorder) (76595 000) Unspecified vaginitis and vulvovaginitis (616.10) ActiveconfirmedProblemContraception care education (947020515)Other general counseling and advice for contraceptive management (V25.09)Activeconfirmed Plan Of Treatment No Information Insurance Providers Payer Name Payer Address Payer Phone Subscriber Number Group Number Insured Name Patient Relationship to Insured Coverage Start Date Coverage End Date z[employer]-te rmed [address] [place] [phone] [id number] DENNYS MARIE Self - patient is the insured 2 zMEDICAID CFC after [employer]-termed [address] [place] [address] [phone], ASUSENASelf - patient is the insured zDENTAL DQ [facility]-termed [address] [place] [address] [id number], ASUSENASelf - patient is the [id number] 2021[facility] C[facility] after [facility]-termed [address] [place] [id number], ASUSENASelf - patient is the [id number] 2021 Medical (General) History Medical History History ICD Code Migraines LEVEL 3family hx of Crohn's diseasesleepwalkingdepressiongenital wartsSurgical History Surgery Date(Month/Year) Appendectomy colonoscopy10/27/14c-section twins03/02/2017Hospitalization History Reason Date(Month/Year) childbirth
--- OUTSIDE RECORDS SUMMARY | 2025-02-26 18:50 | XMS_ITS | Clinical Summary ---
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 Name Role Phone Buckjohan Ramon Alpa PADILLA Primary Care Provider [phone] Allergies Active AllergyReactionsCriticalityNoted RbnlPxiodqhvNmhhxanfh22/08/2019 Other Reaction(s): suicidal ideation Cat Symghc3407/26/2023 Other Reaction(s): Unknown Reaction Dog Epithelium (Canis Lupus Familiaris)07/26/2023 Other Reaction(s): Unknown Reaction Pollen Xqhulax2207/26/2023 Other Reaction(s): Unknown Reaction Medications MedicationSigDispense QuantityRefillsLast FilledStart DateEnd DateStatus cetirizine (ZyrTEC) 5 MG tablet Take 5 mg by mouth in the morning.Active clonazePAM (KlonoPIN) 1 MG tablet Take 1 mg by mouth at bedtime.Active fluticasone (Flonase) 50 MCG/ACT nasal spray Administer 1 spray into each nostril in the morning.Active Proventil HFA 108 (90 Base) MCG/ACT inhaler Inhale 2 puffs in the morning and 2 puffs in the evening and 2 puffs before bedtime.06/05/2020ctive Multiple Vitamin (Multi Vitamin) tablet 1 (one) time each day at the same time.Active topiramate (Topamax) 25 MG tablet Take 25 mg by mouth Daily as needed.Active Spiriva Respimat 2.5 MCG/ACT inhaler Inhale 2 puffs in the morning.09/28/2022ctive sertraline (Zoloft) 50 MG tablet Take 50 mg by mouth in the morning.Active SUMAtriptan (Imitrex) 50 MG tablet every 12 (twelve) hours.Active Asmanex, 120 Metered Doses, 220 MCG/ACT aerosol powder INHALE 2 PUFFS BY MOUTH EVERY SFAPEGK7511/22/2022ctive rvxuwtfcso-qxxxhfwdmkwag-fozvxuqs 50-325-40 MG tablet TAKE 1 TABLET BY MOUTH 3 TIMES A DAY NEEDED FOR PAIN5Active Active Problems ProblemNoted DateDiagnosed YmozJsvcqwtvty00/15/2023nemia affecting in third trimester ([facility])09/11/20226467Gxwxklg02/15/4828Bkffvdbllzri42/15/2023Female genital /15/2023Midline zujbgwgxv72/15/2023Migraine without status migrainosus, not yatnqtuatbq20/15/2239Blhcgbrpf69/15/2023Stress incontinence of urine09/11/2022 Resolved Problems ProblemNoted DateDiagnosed DateResolved CyrlFeqrfpbesmswsg24/13/202307/13/2023 Poor growth complicating , antepartum, second trimester, other fetus ([facility])ichorionic diamniotic twin in third trimester ([facility]) Encounters DateTypeDepartmentCare XkkbKwyjbhsabav94/28/2025Results Follow-Up CHANDNI AMBRIZ [address] [place] [phone] Tariq Hill MD Pathology Aydpeo0302/18/2025 3:45 PM EDTProcedure Visit NOMJohan AMBRIZ [address] [place] [phone] Tariq Hill MD History of abnormal cervical Pap smear; LGSIL of cervix of undetermined zlgyizegjdoe02/22/4443Ylvhis01/21/2025Results Follow-Up CHANDNI AMBRIZ [address] [place] [phone] Tariq Hill MD Hepatitis C antibody, Hepatitis B surface antigen, HIV-1 and HIV-2 antibodies, Additional followed-up results: 3:45 PM EDTOffice Visit NOMS Vladimir PB [address] [place] [address] Tariq Hill MD Encounter for gynecological examination without abnormal finding; Encounter for screening for cervical cancer; Menorrhagia with regular cycle; Post-tubal ligation syndrome; Cystocele, midline; Chronic vaginitis; Encounter for gynecological examination; Screen for STD (sexually transmitted disease); STD exposure; Cervicitis and endocervicitis; Vaginitis and lkrozvlcyxuhjj00/17/2025Travelfrom Last 3 Months Immunizations ImmunizationAdministration DatesNext WqtMLD8701/02/1990,05/08/1989,1988DTaP, Pnzijmupksl37/22/1994Hep B, Adolescent or Tsiwmvdvj18/23/2001HiB, unspecified 12/16/1990Influenza, injectable, quadrivalent, preservative free03/07/2022, 04/16/2021,03/22/2020,02/20/2019MMR12/20/2000,01/02/1990Novel tczzicpym-X1Q9-36, preservative-free03/01/2009OPV10/19/1993,05/08/1989,1988Tdap106/17/2020 Family History Medical HistoryRelationNameCommentsNo Known ProblemsBrother 1No Known Problems Brother 2No Known ProblemsDaughter 1No Known ProblemsDaughter 2No Known Problems Daughter 3Heart diseaseFatherDiabetesFather's SisterDementiaPaternal Grandmother DiabetesPaternal GrandmotherMental illnessPaternal GrandmotherNo Known Problems Sister 1No Known ProblemsSister 2No Known ProblemsSister 3No Known ProblemsSon RelationNameStatusCommentsBrother 1AliveBrother 2AliveDaughter 1AliveDaughter 2 AliveDaughter 3AliveFatherAliveFather's SisterMotherAlivePaternal Grandmother DeceasedSister 1AliveSister 2AliveSister 3AliveSonAlive Social History Tobacco UseTypesPacks/DayYears UsedDateSmoking Tobacco: NeverSmokeless [...] or more drinks on one occasion?Less than fzmhbof2312/11/2023HQ-2AnswerDate RecordedPatient Health Questionnaire-2 Ekkoi85106/10/2023CommentsNoSex and Gender Information ValueDate RecordedSex Assigned at BirthNot on fileLegal CnyFieohu44/15/2023 6:36 PM EDTGender IdentityNot on fileSexual OrientationNot on file Last Filed Vital Signs Vital SignReadingTime TakenCommentsBlood Pryrgkph955/7002/18/2025 4:10 PM EDT Lwobs088110/21/2024 12:55 PM WQALfkxmjclitm64.8 ??C (96.4 ??F)10/21/2024 12:55 PM EDTRespiratory Pvcm552710/21/2024 12:55 PM EDTOxygen Hmdmyblybj79%10/21/2024 12:55 PM EDTInhaled Oxygen Concentration--Pqgrsp56.2 kg (168 lb)02/18/2025 4:10 PM EDT Yzxwvz514.4 cm (5')01/14/2025 3:48 PM EDTBody Mass Index32.8109 3:48 PM EDT Plan of Treatment DateTypeDepartmentCare Team (Latest Contact Info)Egenbwclxvx30/23/2026 1:00 PM EDTOffice Visit NOMS Vladimir AMBRIZ [address] [place] [phone] Tariq Hill MD [address] [place] [address] Procedures Procedure NamePriorityDate/TimeAssociated DiagnosisCommentsPATHOLOGY REPORT Ojnlabh7802/18/2025 12:00 AM EDT History of abnormal cervical Pap smear LGSIL of cervix of undetermined significance HIV-1/HIV-2 QUAL RNA WZQWYJZigafze51/17/2025 4:38 PM EDT HSV 1 ANTIBODY, YQXAflfrku03/17/2025 4:38 PM EDT Screen for STD (sexually transmitted disease) STD exposure Cervicitis and endocervicitis Vaginitis and vulvovaginitis HSV 2 ANTIBODY, MZRAnszfms66/17/2025 4:38 PM EDT Screen for STD (sexually transmitted disease) STD exposure Cervicitis and endocervicitis Vaginitis and vulvovaginitis RPR (DX) W/REFL TITER AND CONFIRMATORY LBNAXJMKsegwgd85/17/2025 4:38 PM EDT Screen for STD (sexually transmitted disease) STD exposure Cervicitis and endocervicitis Vaginitis and vulvovaginitis HIV-1 AND HIV-2 YRREUWUXPDRsgiebd52/17/2025 4:38 PM EDT Screen for STD (sexually transmitted disease) STD exposure Cervicitis and endocervicitis Vaginitis and vulvovaginitis HEPATITIS B SURFACE ANTIGEN W/REFL WTAEPDGXjvtevc56/17/2025 4:38 PM EDT Screen for STD (sexually transmitted disease) STD exposure Cervicitis and endocervicitis Vaginitis and vulvovaginitis HEPATITIS C MHKBQOPQMwxpriv73/17/2025 4:38 PM EDT Screen for STD (sexually transmitted disease) STD exposure Cervicitis and endocervicitis Vaginitis and vulvovaginitis IGP, APT HPV,RFX 16/18,02Ktyqbtg75/17/2025 12:00 AM EDT Encounter for gynecological examination without abnormal finding Encounter for screening for cervical cancer from Last 3 Months Results * Pathology Report (02/18/2025 12:00 AM EDT)ComponentValueRef RangeTest Method Analysis TimePerformed AtPathologist SignatureMaterial Submitted:Comment [facility]PComment: Material submitted: ?. PART A: endocervix - ECC PART B: cervix - CERVICAL BIOPSY Clinician Provided JIK70KzjunatHSXHFPJNvdgiyx: Clinician provided ICD-10: R87.612 Z87.42 Diagnosis:CommentLABCORPComment: Diagnosis: A. ENDOCERVIX, CURETTAGE: - PREDOMINANTLY MUCUS WITH SCANT GLANDULAR ENDOCERVICAL EPITHELIUM. - NEGATIVE FOR DYSPLASIA. B. 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 SMI ??02/20/2025 ??1547 [facility] Electronically Signed:CommentLABCORPComment: Electronically signed: ? . Bulmaro [...] B1. PAV/BXS ??02/19/2025 ??1149 Local Pathologist Provided ZNZ38EfowzqhGAQBGYEVlktisu: Pathologist provided ICD-10: N87.0 CPTCommentLABCORPComment: CPT ?. 262691, 782599 Specimen (Source)Anatomical Location / LateralityCollection Method / Volume Collection TimeReceived OwdtOxfgon64/22/202510/ Narrative [facility] - 02/20/2025 4:08 PM EDT Performed at: 01 - [facility] AP [address] [place] [address] ??[id number] Agricultural Real Estate Agent: Nicholas Riley MD, Phone: ??[phone] Performed at: ??02 - [facility] [address] [place] [address] ??[id number] Agricultural Real Estate Agent: Bulmaro Orozco MD, Phone: ??[phone] Performed at: ??03 - [facility] [address] [place] [address] ??[id number] Agricultural Real Estate Agent: Nicholas Riley MD, Phone: ??[phone] Specimen Comment: No. of containers..02 Tissue Authorizing ProviderResult TypeResult StatusTariq Hill MDLAB PATHOLOGY ORDERABLESFinal ResultPerforming OrganizationAddressCity/State/ZIP CodePhone Number [facility] * HIV-1/HIV-2 Qual RNA Reflex (01/14/2025 4:38 PM EDT)ComponentValueRef Range Test MethodAnalysis TimePerformed AtPathologist SignatureHIV-1 RNANon Reactive Non ReactiveLABCORPHIV-2 RNANon ReactiveNon ReactiveLABCORPFinal InterpretationHIV NegativeLABCORPComment: HIV antibodies were NOT confirmed and HIV-1 and HIV-2 RNA was NOT detected. No laboratory evidence of HIV Infection. Possible biologic false positive. This HIV order code IS NOT the full HIV screening and diagnosis panel. This panel should only be used by clients performing the initial HIV screening test and submitting positive samples to [facility] for completion of the HIV testing algorithm. For the full HIV screening and diagnosis testing algorithm, use order code [id number]. Specimen (Source)Anatomical Location / LateralityCollection Method / Volume Collection TimeReceived Time01/14/2025 4:38 PM EDT01/14/2025 Narrative [facility] - 01/17/2025 6:07 AM EDT Performed at: 02 - [address] ??[id number] Agricultural Real Estate Agent: Xuan Jackson MD, Phone: ??[phone] Performed at: ?? - [address] ??[id number] Agricultural Real Estate Agent: Wil Chilel PhD, Phone: ??[phone] Authorizing ProviderResult TypeResult StatusTariq Hill MDLAB BLOOD ORDERABLESFinal ResultPerforming OrganizationAddressCity/State/ZIP CodePhone Number [facility] * Hepatitis C antibody (01/14/2025 4:38 PM EDT)ComponentValueRef RangeTest MethodAnalysis TimePerformed AtPathologist SignatureHep C Virus AbNon Reactive Non ReactiveLABCORPComment: HCV antibody alone does not differentiate between previously resolved infection and active infection. Equivocal and Reactive HCV antibody results should be followed up with an HCV RNA test to support the diagnosis of active HCV infection. Specimen (Source)Anatomical Location / LateralityCollection Method / Volume Collection TimeReceived TimeBloodVenous blood specimen / Lkfbixg0101/14/2025 4:38 PM EDT01/14/2025 Narrative [facility] - 01/17/2025 6:07 AM EDT Performed at: - [address] ??[id number] Agricultural Real Estate Agent: Wil Chilel PhD, Phone: ??[phone] Authorizing ProviderResult TypeResult StatusTariq Hill MDLAB BLOOD ORDERABLESFinal ResultPerforming OrganizationAddressty/State/ZIP CodePhone Number [facility] * HSV 2 antibody, IgG (01/14/2025 4:38 PM EDT)ComponentValueRef RangeTest Method Analysis TimePerformed AtPathologist SignatureHSV 2 IGG, TYPE SPECNon Reactive Non ReactiveLABCORPComment: Please note reference interval change Current guidelines and recommendations do not recommend routine screening for HSV-2 in asymptomatic individuals, including those that are . The detection of HSV-2 IgG antibodies in a single sample indicates previous exposure to HSV-2 but does not give information as to the site of HSV infection or the timing of exposure. The predictive value of positive and negative results depends on the population's prevalence and the pretest likelihood of HSV-2. HSV-2 IgG testing performed using the [employer] HSV-2 IgG assay. Specimen (Source)Anatomical Location / LateralityCollection Method / Volume Collection TimeReceived TimeBloodVenous blood specimen / Qhlkdmp5701/14/2025 4:38 PM EDT01/14/2025 Narrative [facility] - 01/17/2025 6:07 AM EDT Performed at: [address] ??[id number] Agricultural Real Estate Agent: Wil Chilel PhD, Phone: ??[phone] Authorizing ProviderResult TypeResult Rhianna NOLAN BLOOD ORDERABLESFinal ResultPerforming OrganizationAddressCity/State/ZIP CodePhone Number [facility] * HSV 1 antibody, IgG (01/14/2025 4:38 PM EDT)ComponentValueRef RangeTest Method Analysis TimePerformed AtPathologist SignatureHSV 1 IGG, TYPE SPECNon Reactive Non ReactiveLABCORPComment: Please note reference interval change HSV-1 IgG testing performed using the [employer] HSV-1 IgG assay. Specimen (Source)Anatomical Location / LateralityCollection Method / Volume Collection TimeReceived TimeBloodVenous blood specimen / Mgsprkx4101/14/2025 4:38 PM EDT01/14/2025 Narrative [facility] - 01/17/2025 6:07 AM EDT Performed at: [address] ??[id number] Agricultural Real Estate Agent: Wil Chilel PhD, Phone: ??[phone] Authorizing ProviderResult TypeResult Rhianna NOLAN BLOOD ORDERABLESFinal ResultPerforming OrganizationAddressty/State/ZIP CodePhone Number [facility] * RPR (01/14/2025 4:38 PM EDT)ComponentValueRef RangeTest MethodAnalysis Time Performed AtPathologist SignatureRPRNon ReactiveNon ReactiveLABCORPSpecimen (Source)Anatomical Location / LateralityCollection Method / VolumeCollection TimeReceived TimeBloodVenous blood specimen / Mgdifqh8501/14/2025 4:38 PM EDT 01/14/2025 Narrative [facility] - 01/17/2025 6:07 AM EDT Performed at: [address] [place] [address] ??[id number] Agricultural Real Estate Agent: Wil Chilel PhD, Phone: ??[phone] Authorizing ProviderResult TypeResult StatusTariq NOLAN BLOOD ORDERABLESFinal ResultPerforming OrganizationAddressCity/State/ZIP CodePhone Number [facility] * HIV-1 and HIV-2 antibodies (01/14/2025 4:38 PM EDT)ComponentValueRef RangeTest MethodAnalysis TimePerformed AtPathologist SignatureHIV-1 AbNon ReactiveNon ReactiveLABCORPHIV-2 AbNon ReactiveNon ReactiveLABCORPHIV 1/2 InterpNegative LABCORPComment:See RNA Reflex.Specimen (Source)Anatomical Location / LateralityCollection Method / VolumeCollection TimeReceived TimeBloodVenous blood specimen / Nthlhtt1401/14/2025 4:38 PM EDT01/14/2025 Narrative [facility] - 01/17/2025 6:07 AM EDT Performed at: [address] [place] [address] ??[id number] Agricultural Real Estate Agent: Wil Chilel PhD, Phone: ??[phone] Authorizing ProviderResult TypeResult StatusTariq Hill MDLAB BLOOD ORDERABLESFinal ResultPerforming OrganizationAddressCity/State/ZIP CodePhone Number [facility] * Hepatitis B surface antigen (01/14/2025 4:38 PM EDT)ComponentValueRef Range Test MethodAnalysis TimePerformed AtPathologist SignatureHep B Surf Ag Scr NegativeNegativeLABCORPSpecimen (Source)Anatomical Location / Laterality Collection Method / VolumeCollection TimeReceived TimeBloodVenous blood specimen / Msjcfph2001/14/2025 4:38 PM EDT01/14/2025 Narrative [facility] - 01/17/2025 6:07 AM EDT Performed at: - [facility] [address] ??[id number] Agricultural Real Estate Agent: Wil Chilel PhD, Phone: ??[phone] Authorizing ProviderResult TypeResult StatusTariq Hill MDLAB BLOOD ORDERABLESFinal ResultPerforming OrganizationAddressCity/State/ZIP CodePhone Number [facility] * (ABNORMAL) IGP, APT HPV,RFX 16/18,45 (01/14/2025 12:00 AM EDT)ComponentValue Ref RangeTest MethodAnalysis TimePerformed AtPathologist SignatureDiagnosis: Comment(A)[facility]ABCORPComment: EPITHELIAL CELL ABNORMALITY. LOW GRADE SQUAMOUS INTRAEPITHELIAL LESION (LSIL). Recommendation:Comment(A)[facility]ABC[facility]PComment:Suggest follow up as clinically appropriate.Specimen Adequacy:CommentLABCORPComment: Satisfactory for evaluation. ??Endocervical and/or squamous metaplastic cells (endocervical component) are present. Clinician Provided ICD10:CommentLABCORPComment: Z01.419 Z12.4 Performed By:CommentLABCORPComment:Kye Mcgovern, Food And Beverage Outlets Manager (ASCP)Electronically Signed By:CommentLABCORPComment:Jordy Smith MD, PathologistCyto Comments. [facility]ABC[facility]PPathologist Provided ICD10:CommentLABCORPComment:R87.612Note:Comment [facility]PComment: The Pap smear is a screening test designed to aid in the detection of premalignant and malignant conditions of the uterine cervix. ??It is not a diagnostic procedure and should not be used as the sole means of detecting cervical cancer. ??Both false-positive and false-negative reports do occur. Test Methodology:CommentLABCORPComment: This liquid based ThinPrep(R) pap test was screened with the use of an image guided system. HPV AptimaNegativeNegativeLABCORPComment: This nucleic acid amplification test detects fourteen high-risk HPV types (16,18,31,33,35,39,45,51,52,56,58,59,66,68) without differentiation. Specimen (Source)Anatomical Location / LateralityCollection Method / Volume Collection TimeReceived TimeVaginal Fluid509/ Narrative [facility] - 01/20/2025 5:07 PM EDT Performed at: 01 - [facility] [place] [address] [facility] [place] [place], [place] ??[id number] Agricultural Real Estate Agent: Adriana Vásquez MD, Phone: ??[phone] Performed at: ??02 - [facility] [place] [address] [facility] [facility] [address] [place], [place] ??[id number] Agricultural Real Estate Agent: Adriana Vásquez MD, Phone: ??[phone] Specimen Comment: No. of containers..01 ThinPrep Vial Authorizing ProviderResult TypeResult StatusTariq Hill MDLAB BLOOD ORDERABLESFinal ResultPerforming OrganizationAddressCity/State/ZIP CodePhone Number [facility] from Last 3 Months Insurance Care Teams Team MemberRelationshipSpecialtyStart DateEnd Date Ramon Ruiz DO [facility] - [facility]10/11/22
[2025-02-26] MEDS: CEFDINIR 300 MG CAPSULE PO (19:12)
[2025-02-26] MEDS: OXYCODONE HCL/ACETAMINOPHEN 5MG/325MG 1 TAB PO (19:13)
[2025-02-26 19:20] VITALS: BP 132/88; PULSE 78; O2SAT 99
== END 2025-02-26 19:20 | disposition home or self-care (01) ==
LOC: ER 18:45
PROVIDERS: Emergency Provider Emergency Medicine; PCP Family Medicine
DX: H66.92 Otitis media, unspecified, left ear (principal)
CPT/HCPCS: 99283